=== PATIENT | male | born 1940 | race Caucasian/White ===

== ENCOUNTER 2020-11-06 09:09 | Inpatient (IN) ==
[2020-11-06] MEDS ORDERED: ALTEPLASE 0 ML IV ONE (09:20)
--- NOTE | 2020-11-06 09:28 | Emergency Department Note ---
Neuro HPI General Chief Complaint: Stroke Symptoms Stated Complaint: slurred speech, left sided weakness Time Seen by Provider: 11/06/20 09:11 Source: patient and EMS Mode of arrival: EMS Limitations: no limitations History of Present Illness HPI Narrative: 80-year-old male presents via EMS as a stroke alert. Patient was last known well at around 8 AM. Reportedly had slurred speech and left-sided weakness. Patient has history of diabetes also states he has history of TIA and what sounds like traumatic brain injury requiring craniotomy in June 2021. Review of records also report history of brain neoplasm. Patient denies headache denies chest pain denies shortness with. Has history of diabetes and hypertension. Patient's is arrived at the bedside and states the patient had a craniotomy for what was suspected his brain neoplasm but ended up being hemorrhage leading to a stroke and this was in June 2021. Patient is also report to that the patient has had some residual left sided lack of coordination since the brain surgery. He has had some physical and occupational therapy which has improved. She was concerned this morning called EMS because the patient was unsteady when he walked into the kitchen. Related Data Home Medications Medication Instructions Recorded Confirmed aspirin 81 mg tablet,delayed 81 mg PO QDAY 02/13/18 11/06/20 release omega-3 fatty acids 1,000 mg 1,000 mg PO QDAY 02/13/18 11/06/20 capsule insulin U-500 syringe-needle /2 #100 each 10/05/19 11/06/20 mL 31 gauge x 15/64" tamsulosin 0.4 mg capsule 0.4 mg PO QDAY 10/05/19 11/06/20 amlodipine 5 mg PO BID 11/06/20 11/06/20 furosemide 40 mg PO QDAY PRN 11/06/20 11/06/20 Previous Rx's Medication Instructions Recorded insulin syr/ndl U100 half jose 0.5 #100 each 07/28/19 mL 31 gauge x 5/16" pen needle, diabetic 33 gauge x #100 each 06/06/20 5/32" insulin NPH-regular 70-30 U-100 See Rx Instructions .ROUTE 07/19/20 insulin 100 unit/mL subcutaneous .COMPLEX 30 Days #3 ml pen losartan 100 1 tab PO QDAY #90 tab 08/15/20 mg-hydrochlorothiazide 25 mg tablet metoprolol succinate 25 mg 25 mg PO .Q HS #90 tab 08/17/20 tablet,extended release 24 hr blood-glucose meter #1 ea 10/02/20 blood sugar diagnostic #100 ea 10/04/20 blood sugar diagnostic #100 ea 10/27/20 insulin aspart U-100 100 unit/mL See Rx Instructions SUB-Q .COMPLEX 11/01/20 (3 mL) subcutaneous pen #15 ml MDD 80 Allergies Allergy/AdvReac Type Severity Reaction Status Date / Time nabumetone [From RELAFEN] Allergy Unknown BLISTERS Verified 10/04/20 09:02 Review of Systems ROS ROS Narrative: Narrative: All systems ED: reviewed and negative except as stated. Constitutional: Denies fever, chills and sweats Eyes: Denies vision change Cardiovascular: Denies chest pain Respiratory: Denies shortness of breath and cough Gastrointestinal: Denies abdominal pain, vomiting and diarrhea Genitourinary: Denies dysuria, frequency, urgency and hematuria Musculoskeletal: Denies back pain and joint pain Integumentary: Denies rash Neurological: Reports headache, weakness, abnormal gait, dizziness and other (Slurred speech) Psychiatric: Denies anxiety, suicidal thoughts and homicidal thoughts Endocrine: Denies polydipsia and polyuria Hematological/Lymphatic: Denies easy bleeding and easy bruising PFSH Narrative Patient History Narrative: Narrative: Medical/Surgical/Family History All Active Problems (Updated 11/06/20 @ 11:41 by Juarez Tolentino MD) Dysarthria (Acute) Ataxia (Acute) Uncontrolled diabetes mellitus (Acute) 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) Encounter for long-term (current) use of insulin (Chronic) Hypertension (Acute) Mary Kate infection of genital region (Acute) Brain neoplasm (Acute) Concussion (Acute) Fall (Acute) Injury of shoulder, right (Acute) Finger sprain (Acute) Fever (Acute) Edema due to congestive heart failure (Acute) Ulcer of left lower leg (Acute) Ulcer of right leg (Acute) Blister (Acute) Medicare annual wellness visit, subsequent (Acute) H/O sigmoidoscopy (Chronic ~1995) Diabetic eye exam (Chronic 02/03/19) Nuclear sclerotic cataract (Chronic) Cortical cataract (Chronic) Heart murmur (Chronic) GERD (gastroesophageal reflux disease) (Chronic) Generalized headaches (Chronic) Preventative health care (Chronic) Fatigue (Chronic) Plantar fasciitis of left foot (Chronic) Prostatic hypertrophy (Chronic) Abrasion, left lower leg, sequela (Chronic) Strain of muscle(s) and tendon(s) of the rotator cuff of right shoulder, initial encounter (Chronic) Arthritis (Chronic) Hearing loss (Chronic) Other fatigue (Chronic) Enlarged prostate with lower urinary tract symptoms (LUTS) (Chronic) Hypertension (Chronic) Hyperlipidemia (Chronic) Dry eye syndrome (Chronic) Callus of foot (Chronic) Medical History (Updated 11/06/20 @ 11:41 by Juarez Tolentino MD) Abrasion, left lower leg, sequela Arthritis Callus of foot Cortical cataract Diabetic eye exam (02/03/19) Vision source- no retinopathy Dry eye syndrome Encounter for long-term (current) use of insulin Enlarged prostate with lower urinary tract symptoms (LUTS) Fatigue Generalized headaches GERD (gastroesophageal reflux disease) H/O sigmoidoscopy (~1995) Hearing loss Hearing loss of both ears Heart murmur Hyperlipidemia Hypertension Nuclear sclerotic cataract Other fatigue Plantar fasciitis of left foot Preventative health care Prostatic hypertrophy with obstruction Strain of muscle(s) and tendon(s) of the rotator cuff of right shoulder, initial encounter Type 2 diabetes mellitus with autonomic neuropathy Surgical History History of hernia repair (~1995) Right- Dr Randle in [place] History of left cataract extraction (04/24/17) History of total left knee replacement (~2010) Dr Yung History of total right knee replacement (~2006) Dr Yung Hx of right cataract extraction (04/15/17) Hx of right inguinal hernia repair (~1995) Family History Mother , 85 d/t stroke Thyroid disease Stroke Arthritis Father , 79 Reason not listed Alcoholism Pacemaker Social History Smoking Status: Never smoker Alcohol Intake Frequency: does not drink Substance Use: does not use Exam Narrative Narrative: Constitutional: Awake alert no acute distress well-nourished well- developed HEENT: Normocephalic, atraumatic PERRLA, EOMI, oral mucosa moist, pharynx clear, Neck: Supple, no lymphadenopathy, no JVD Lungs: Breathing unlabored, lungs clear Cardiac: Regular rate and rhythm, normal distal pulses, GI: Soft nontender nondistended no guarding no rebound Musculoskeletal: No tenderness, no deformities, no edema, full range of motion Neuro: Awake alert, cranial nerves II through XII grossly intact, mildly slurred speech, oriented to self month and age. Moves all extremities no obvious focal motor or sensory deficit. Psychiatric: Normal mood and affect Skin: Warm dry no rash, cap refill less than 2 seconds NIH stroke scale: 1 Patient is alert, keenly responsive 0 He knows both his age and the month 0 He will blink his eyes and squeezes hand 0 Normal extraocular movements 0 Visual martins grossly intact no obvious visual field deficits 0 no facial palsy no 0 left arm drift no right arm drift 0 No left leg drift no right leg drift 0 No limb ataxia 0 No sensory loss no aphasia 0 Mild dysarthria +1 no inattention or extension deficit 0 General Limitations: no limitations Course Consultations Consultation #1: Patient discussed with teleneurologist, Dr. Ga, who feels that given the patient's recent traumatic brain hemorrhage and craniotomy in June 2021, he is not a candidate for thrombolytics. He did recommend patient get an MRI and be admitted for evaluation. Time: 09:37 Consultation #2: Discussed with hospitalist, Dr. Hawley who agrees to see the patient and admit the patient. Time: 12:10 Vital Signs Vital signs: Vital Signs Temperature 97.3 F 11/06/20 09:11 Pulse Rate 80 11/06/20 09:11 Respiratory Rate 16 11/06/20 09:11 Blood Pressure 192/94 11/06/20 09:11 Pulse Oximetry (%) 99 11/06/20 09:11 Temperature 97.3 F 11/06/20 09:11 Pulse Rate 65 11/06/20 10:54 Respiratory Rate 19 11/06/20 09:31 Blood Pressure 167/120 11/06/20 11:47 Pulse Oximetry (%) 91 11/06/20 10:54 [facility] Narrative Medical decision making narrative: 40-year-old male last known well about an hour prior to arrival here developed some slurred speech and ataxia. Patient's history notable for a craniotomy in June 2021 for what they thought might have been a tumor but ended up being a hemorrhagic stroke. Patient also states he had had a head injury few weeks prior to that in May. Patient had slurred speech and some unsteady gait this morning. CT scan of the brain showed no definite acute process. Case discussed with teleneurologist Dr. Ga who stated the patient is not a candidate for TPA given his low NIH score as well as recent craniotomy for intracerebral hemorrhage. He did recommend patient be admitted and have MRI of the brain. Patient has had some chronic left-sided poor coordination since his craniotomy in June. He has had some physical and occupational therapy with improvement. Labs notable for glucose of 314 the patient does state that his sugars tend to be poorly controlled in the 300s at home. Lab Data Result diagrams: 11/06/20 09:22 11/06/20 09:22 Labs: Lab Results 11/06/20 11/06/20 11/06/20 Range/Units 09:22 09:22 09:22 WBC 8.0 (4.5-11.0) K/mcL RBC 4.72 (4.50-5.90) M/mcL Hgb 15.5 (13.5-16.5) g/dL Hct 45.9 (41.0-55.0) % MCV 97.2 (80.0-100.0) fL MCH 32.8 (26.0-34.0) pg MCHC 33.8 (31.0-36.0) g/dL RDW 12.3 (11.5-14.5) % Plt Count 233 (140-440) K/mcL MPV 9.4 (7.4-10.4) fL Neut % (Auto) 36.0 L (38.0-78.0) % Lymph % (Auto) 54.2 H (15.0-49.0) % [place] % (Auto) 7.1 (1.0-12.0) % Eos % (Auto) 2.0 (0.0-7.0) % Baso % (Auto) 0.7 (0.0-2.0) % Lymph # (Auto) 4.36 (1.50-4.80) K/mcL [place] # (Auto) 0.57 (0.10-0.90) K/mcL Eos # (Auto) 0.16 (0.00-0.70) K/mcL Baso # (Auto) 0.06 (0.00-0.20) K/mcL Absolute Neutrophils 2.89 (1.80-8.00) K/mcL POC PT 12.4 (11.9-14.5) sec PT 13.8 (11.9-14.5) sec POC INR 1.0 (0.8-1.2) INR 1.0 (0.9-1.1) APTT 25.6 (20.0-37.0) sec Sodium 134 (133-145) mmol/L Potassium 3.7 (3.3-5.1) mmol/L Chloride 97 (96-108) mmol/L Carbon Dioxide 23 (22-30) mmol/L Anion Gap 14.0 (8.0-16.0) BUN 16 (8-23) mg/dL Creatinine 1.0 (0.7-1.2) mg/dL POC Creatinine 0.9 (0.6-1.2) mg/dL GFR Calculation 71 Glucose 314 H (70-105) mg/dL Calcium 9.0 (8.6-10.4) mg/dL Total Bilirubin 0.7 (0.1-1.0) mg/dL AST 30 (<40) U/L ALT 22 (<40) U/L Alkaline Phosphatase 52 (39-117) U/L Troponin T (<0.03) ng/mL Total Protein 7.0 (5.9-8.4) gm/dL Albumin 3.7 (3.2-5.2) gm/dL Globulin 3.3 (2.2-3.7) gm/dL Albumin/Globulin Ratio 1.1 (1.0-2.3) 11/06/20 Range/Units 09:22 WBC (4.5-11.0) K/mcL RBC (4.50-5.90) M/mcL Hgb (13.5-16.5) g/dL Hct (41.0-55.0) % MCV (80.0-100.0) fL MCH (26.0-34.0) pg MCHC (31.0-36.0) g/dL RDW (11.5-14.5) % Plt Count (140-440) K/mcL MPV (7.4-10.4) fL Neut % (Auto) (38.0-78.0) % Lymph % (Auto) (15.0-49.0) % [place] % (Auto) (1.0-12.0) % Eos % (Auto) (0.0-7.0) % Baso % (Auto) (0.0-2.0) % Lymph # (Auto) (1.50-4.80) K/mcL [place] # (Auto) (0.10-0.90) K/mcL Eos # (Auto) (0.00-0.70) K/mcL Baso # (Auto) (0.00-0.20) K/mcL Absolute Neutrophils (1.80-8.00) K/mcL POC PT (11.9-14.5) sec PT (11.9-14.5) sec POC INR (0.8-1.2) INR (0.9-1.1) APTT (20.0-37.0) sec Sodium (133-145) mmol/L Potassium (3.3-5.1) mmol/L Chloride (96-108) mmol/L Carbon Dioxide (22-30) mmol/L Anion Gap (8.0-16.0) BUN (8-23) mg/dL Creatinine (0.7-1.2) mg/dL POC Creatinine (0.6-1.2) mg/dL GFR Calculation Glucose (70-105) mg/dL Calcium (8.6-10.4) mg/dL Total Bilirubin (0.1-1.0) mg/dL AST (<40) U/L ALT (<40) U/L Alkaline Phosphatase (39-117) U/L Troponin T 0.02 (<0.03) ng/mL Total Protein (5.9-8.4) gm/dL Albumin (3.2-5.2) gm/dL Globulin (2.2-3.7) gm/dL Albumin/Globulin Ratio (1.0-2.3) ED POC Tests ED POC Tests: EDWARD - SARS Antigen Negative EKG Data EKG #1: EKG attestation: Yes I reviewed and interpreted this EKG. and Yes There are no EKG findings of acute coronary syndrome EKG results narrative: EKG performed at 9:57 AM shows junctional rhythm rate of 77 left axis deviation, right bundle branch block left anterior fascicular block nonspecific ST changes Discharge Plan Patient/Caregiver Discharge Instructions Pt seen by RN FACULTY/PA only: No Clinical Impression: Dysarthria, Ataxia, Uncontrolled diabetes mellitus, Hypertension Patient Disposition: Xfer As Inpt ([facility]) Condition: Fair Follow up with: Kelvin Yu MD [Primary Care Provider] - Prescriptions: No Action (DME) pen needle, diabetic [Easy Comfort Pen [place]] 33 gauge x 5/32" needle See Rx Instructions .ROUTE .MEDSUPPLY Qty: 100 RF: 5 (DME) insulin syr/ndl U100 half jose 0.5 mL 31 gauge x 5/16" syringe See Rx Instructions .ROUTE .MEDSUPPLY Qty: 100 RF: 12 losartan-hydrochlorothiazide 100-25 mg tablet 1 tab PO QDAY Qty: 90 RF: 1 metoprolol succinate 25 mg tablet extended release 24 hr 25 mg PO .Q HS Qty: 90 RF: 0 (DME) blood-glucose meter [FreeStyle Lite Meter] Kit See Rx Instructions .ROUTE .MEDSUPPLY Qty: 1 RF: 0 (DME) FreeStyle Lite Strips Strip See Rx Instructions .ROUTE .MEDSUPPLY Qty: 100 RF: 6 Novolog Flexpen U-100 Insulin 100 unit/mL (3 mL) insulin pen See Rx Instructions SUB-Q .COMPLEX MDD 80 Qty: 15 RF: 3 aspirin [Adult Aspirin Regimen] 81 mg tablet,delayed release (DR/EC) 81 mg PO QDAY RF: 0 omega-3 fatty acids [Fish Oil Concentrate] 1,000 mg capsule 1,000 mg PO QDAY RF: 0 tamsulosin [Flomax] 0.4 mg capsule 0.4 mg PO QDAY RF: 0 (DME) BD Insulin Syringe U-500 1/2 mL 31 gauge x 15/64" syringe See Rx Instructions .ROUTE .MEDSUPPLY Qty: 100 RF: 0 (DME) True Metrix Glucose Test Strip Strip See Rx Instructions .ROUTE .MEDSUPPLY Qty: 100 RF: 11 Novolin 70-30 FlexPen U-100 100 unit/mL (70-30) insulin pen See Rx Instructions .ROUTE .COMPLEX 30 Days Qty: 3 RF: 6 furosemide 40 mg tablet 40 mg PO QDAY PRN (Reason: edema) RF: 0 amlodipine 5 mg tablet 5 mg PO BID RF: 0
--- NOTE | 2020-11-06 09:31 | Cat Scan Report ---
CLINICAL INFORMATION: Head CT three months prior 08/08/2020 COMPARISON: CT three months prior 08/08/2020. TECHNIQUE: 2.5 mm helical slices were obtained in the skull base to vertex. Following reconstruction, axial reformatted images were reviewed at bone and parenchymal windows. The exam was performed using radiation dose optimization techniques including, but not limited to, automated exposure control, adjustment of the mA and/or kV according to patient size and use of iterative reconstruction technique. FINDINGS: The ventricles, sulci, fissures, and cisterns are enlarged compatible moderate atrophy. Moderate cortical-based region of encephalomalacia in the right frontoparietal region is unchanged. Minimal chronic ischemic changes in the cerebral white matter expected for age stable. No acute cerebral hemorrhage, mass effect, edema or other acute finding. Overlying right frontoparietal craniotomy defect seen as before. Bone windows show no other osseous abnormality. IMPRESSION: Moderate cortical based region of encephalomalacia in the right frontoparietal junction is unchanged in size since the comparison CT three months prior. This is likely a remote infarct. Mild atrophy and chronic ischemic changes throughout white matter, expected for age, are also stable. No intracerebral hemorrhage, mass effect, edema or other acute finding.. Interpreted and Authenticated by: Cory Garcia 11/06/20
[2020-11-06 09:40] LABS: POC Creatinine 0.9 mg/dL (0.6-1.2)
[2020-11-06 09:41] LABS: POC Pro Time 12.4 sec (11.9-14.5)
[2020-11-06 10:40] LABS: Basophils # (Auto) 0.06 K/mcL (0.00-0.20); Basophils % (Auto) 0.7 % (0.0-2.0); Eosinophils # (Auto) 0.16 K/mcL (0.00-0.70); Hematocrit 45.9 % (41.0-55.0); Hemoglobin 15.5 g/dL (13.5-16.5); Lymphocytes # (Auto) 4.36 K/mcL (1.50-4.80); Lymphocytes % (Auto) 54.2 % (15.0-49.0); Mean Cell Volume 97.2 fL (80.0-100.0); Mean Corpuscular HGB Conc 33.8 g/dL (31.0-36.0); Mean Platelet Volume 9.4 fL (7.4-10.4); Monocytes # (Auto) 0.57 K/mcL (0.10-0.90); Monocytes % (Auto) 7.1 % (1.0-12.0); Platelet Count 233 K/mcL (140-440); RBC 4.72 M/mcL (4.50-5.90); Red Cell Distribution Width 12.3 % (11.5-14.5)
[2020-11-06] MEDS ORDERED: ONDANSETRON 4 MG/2 ML VIAL IV ONE (10:42)
[2020-11-06] MEDS ORDERED: LABETALOL 5 MG/ML ML IV ONE (10:42)
[2020-11-06 11:09] LABS: ALT/SGPT 22 U/L (<40); AST/SGOT 30 U/L (<40); Albumin 3.7 gm/dL (3.2-5.2); Albumin/Globulin Ratio 1.1 (1.0-2.3); Alkaline Phosphatase 52 U/L (39-117); Bilirubin,Total 0.7 mg/dL (0.1-1.0); Blood Urea Nitrogen 16 mg/dL (8-23); Carbon Dioxide 23 mmol/L (22-30); Chloride 97 mmol/L (96-108); Globulin 3.3 gm/dL (2.2-3.7); Glomerular Filtration Rate 71; Glucose 314 mg/dL (70-105)
[2020-11-06 11:17] LABS: Partial Thromboplastin Time 25.6 sec (20.0-37.0); Prothrombin Time 13.8 sec (11.9-14.5)
[2020-11-06] MEDS ORDERED: 0.9 % SODIUM CHLORIDE 1,000 ML IV ONE (12:42)
[2020-11-06] MEDS ORDERED: 0.9 % SODIUM CHLORIDE 500 ML IV ONE (12:42)
--- NOTE | 2020-11-06 12:44 | Internal Med History&Physical ---
HPI History of Present Illness Patient information: Note initiated : 11/06/20 at 12:28 pm Service Date, if different from initiated Date: [] Patient: Robert Caballero a 80 y/o M admitted on for Slurred Speech, Left Sided Weakness. Chief Complaint: [] History of present illness: Mr. Caballero is a 80 year old M Presents the ED with slurring of speech ataxia and some left-sided weakness. Last seen normal 8 this morning. Patient's history is significant for a stroke in June where he was treated at [facility] it had a atypical appearance and was concern for mass and underwent craniotomy with tissue biopsy confirming that was ischemic stroke there was no hemorrhagic stroke mentioned in any documentation. Patient is on aspirin and states has been taking it daily, 81 mg. I do not see a statin medication on board. Case was discussed with stroke neurologist in the ED who recommended admission and MRI and that patient was not a TPA candidate. Per the history of the patient he states he was walking in the kitchen and was started open the refrigerator door but is becoming increasingly weak. His helped him to the chair he started having slurring of speech. Denies any headache fever chills chest pain shortness of breath. Vision intact per patient. Review of Systems: Pertinent positives as above. Denies headache/fever/chills/nausea/vomiting/chest or abdominal pain/cough/dyspnea/diarrhea. 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) Encounter for long-term (current) use of insulin (Chronic) Hypertension (Acute) Mary Kate infection of genital region (Acute) Brain neoplasm (Acute) Concussion (Acute) Fall (Acute) Injury of shoulder, right (Acute) Finger sprain (Acute) Fever (Acute) Edema due to congestive heart failure (Acute) Ulcer of left lower leg (Acute) Ulcer of right leg (Acute) Blister (Acute) Medicare annual wellness visit, subsequent (Acute) H/O sigmoidoscopy (Chronic ~1995) Diabetic eye exam (Chronic 02/03/19) Nuclear sclerotic cataract (Chronic) Cortical cataract (Chronic) Heart murmur (Chronic) GERD (gastroesophageal reflux disease) (Chronic) Generalized headaches (Chronic) Preventative health care (Chronic) Fatigue (Chronic) Plantar fasciitis of left foot (Chronic) Prostatic hypertrophy (Chronic) Abrasion, left lower leg, sequela (Chronic) Strain of muscle(s) and tendon(s) of the rotator cuff of right shoulder, initial encounter (Chronic) Arthritis (Chronic) Hearing loss (Chronic) Other fatigue (Chronic) Enlarged prostate with lower urinary tract symptoms (LUTS) (Chronic) Hypertension (Chronic) Hyperlipidemia (Chronic) Dry eye syndrome (Chronic) Callus of foot (Chronic) Medical History (Updated 11/06/20 @ 11:41 by Juarez Tolentino MD) Abrasion, left lower leg, sequela Arthritis Callus of foot Cortical cataract Diabetic eye exam (02/03/19) Vision source- no retinopathy Dry eye syndrome Encounter for long-term (current) use of insulin Enlarged prostate with lower urinary tract symptoms (LUTS) Fatigue Generalized headaches GERD (gastroesophageal reflux disease) H/O sigmoidoscopy (~1995) Hearing loss Hearing loss of both ears Heart murmur Hyperlipidemia Hypertension Nuclear sclerotic cataract Other fatigue Plantar fasciitis of left foot Preventative health care Prostatic hypertrophy with obstruction Strain of muscle(s) and tendon(s) of the rotator cuff of right shoulder, initial encounter Type 2 diabetes mellitus with autonomic neuropathy Surgical History History of hernia repair (~1995) Right- Dr Randle in [place] History of left cataract extraction (04/24/17) History of total left knee replacement (~2010) Dr Yung History of total right knee replacement (~2006) Dr Yung Hx of right cataract extraction (04/15/17) Hx of right inguinal hernia repair (~1995) Family History Mother , 85 d/t stroke Thyroid disease Stroke Arthritis Father , 79 Reason not listed Alcoholism Pacemaker Social History occupational status: retired occupation: [employer] physical activity: none alcohol intake frequency: does not drink substance use type: does not use seatbelt use: sometimes MEDS/ALLERGIES Home Medications and Allergies Home Medications Medication Instructions Recorded Confirmed Type aspirin 81 mg tablet,delayed 81 mg PO QDAY 02/13/18 11/06/20 History release omega-3 fatty acids 1,000 mg 1,000 mg PO QDAY 02/13/18 11/06/20 History capsule insulin syr/ndl U100 half jose 0.5 #100 each 07/28/19 11/06/20 Rx mL 31 gauge x 5/16" insulin U-500 syringe-needle 1/2 #100 each 10/05/19 11/06/20 History mL 31 gauge x 15/64" tamsulosin 0.4 mg capsule 0.4 mg PO QDAY 10/05/19 11/06/20 History pen needle, diabetic 33 gauge x #100 each 06/06/20 11/06/20 Rx 5/32" insulin NPH-regular 70-30 U-100 See Rx Instructions .ROUTE 07/19/20 11/06/20 Rx insulin 100 unit/mL subcutaneous .COMPLEX 30 Days #3 ml pen losartan 100 1 tab PO QDAY #90 tab 08/15/20 11/06/20 Rx mg-hydrochlorothiazide 25 mg tablet metoprolol succinate 25 mg 25 mg PO .Q HS #90 tab 08/17/20 11/06/20 Rx tablet,extended release 24 hr blood-glucose meter #1 ea 10/02/20 11/06/20 Rx blood sugar diagnostic #100 ea 10/04/20 11/06/20 Rx blood sugar diagnostic #100 ea 10/27/20 11/06/20 Rx insulin aspart U-100 100 unit/mL See Rx Instructions SUB-Q .COMPLEX 11/01/20 11/06/20 Rx (3 mL) subcutaneous pen #15 ml MDD 80 amlodipine 5 mg PO BID 11/06/20 11/06/20 History furosemide 40 mg PO QDAY PRN 11/06/20 11/06/20 History Allergies Allergy/AdvReac Type Severity Reaction Status Date / Time nabumetone [From RELAFEN] Allergy Unknown BLISTERS Verified 10/04/20 09:02 EXAM Constitutional Vitals: Temp Pulse Resp BP Pulse Ox 97.3 F 65 19 167/120 91 11/06/20 09:11 11/06/20 10:54 11/06/20 09:31 11/06/20 11:47 11/06/20 10:54 Exam: General: Alert, Awake, No acute Distress, obese Eyes/N/T: EOMI, PERRL, Head/Neck: neck supple, normocephalic atraumatic CV: RRR, No murmurs, normal s1/s2 Pulm: Clear b/l, no wheezing/rhonchi/rales Abd: soft, nontender, +BS x4 Ext: no clubbing/cyanosis/edema Neuro: Alert, chronic left upper extremity weakness although near symmetrical left side lower extremity strength appears symmetrical, sensations intact, no pronator drift, dysarthria present, face symmetrical other than his left eyelid appears to be drooping some but is able to open. skin: warm/dry DATA Data Completed and Pending Labs: Labs from last 24 hours 11/06/20 11/06/20 11/06/20 09:22 09:22 09:22 WBC RBC Hgb Hct MCV MCH MCHC RDW Plt Count MPV Neut % (Auto) Lymph % (Auto) [place] % (Auto) Eos % (Auto) Baso % (Auto) Lymph # (Auto) [place] # (Auto) Eos # (Auto) Baso # (Auto) Absolute Neutrophils POC PT 12.4 PT 13.8 POC INR 1.0 INR 1.0 APTT 25.6 Sodium 134 Potassium 3.7 Chloride 97 Carbon Dioxide 23 Anion Gap 14.0 BUN 16 Creatinine 1.0 POC Creatinine 0.9 GFR Calculation 71 Glucose 314 H Calcium 9.0 Total Bilirubin 0.7 AST 30 ALT 22 Alkaline Phosphatase 52 Troponin T 0.02 Total Protein 7.0 Albumin 3.7 Globulin 3.3 Albumin/Globulin Ratio 1.1 11/06/20 09:22 WBC 8.0 RBC 4.72 Hgb 15.5 Hct 45.9 MCV 97.2 MCH 32.8 MCHC 33.8 RDW 12.3 Plt Count 233 MPV 9.4 Neut % (Auto) 36.0 L Lymph % (Auto) 54.2 H [place] % (Auto) 7.1 Eos % (Auto) 2.0 Baso % (Auto) 0.7 Lymph # (Auto) 4.36 [place] # (Auto) 0.57 Eos # (Auto) 0.16 Baso # (Auto) 0.06 Absolute Neutrophils 2.89 POC PT PT POC INR INR APTT Sodium Potassium Chloride Carbon Dioxide Anion Gap BUN Creatinine POC Creatinine GFR Calculation Glucose Calcium Total Bilirubin AST ALT Alkaline Phosphatase Troponin T Total Protein Albumin Globulin Albumin/Globulin Ratio A/P Narrative A/P Narrative: A: *CVA(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): -Case discussed with stroke neurologist, note TPA candidate -pt has been on ASA, do not seen statin on home med list -ABCD=6-7 *HTN: *Hypothyroidism: *Obesity: *DM: P: -DAPT for 21 days then likely monotherapy on Plavix as seemed to fail ASA -high dose statin -MRI pending -neurochecks -allow permissive hypertension first 24-48hrs then reintroduce home BP meds gradually -echo pending -ST/PT/OT -SSI -tight glycemic control 140-180 -CM for placement needs -ppx: lovenox/ppi DNR Time Spent With Patient Time: Total time spent is greater than 50% in coordination of care (as documented) at patient's floor/unit and/or counseling patient: QUALITY Stroke Symptom Onset Unknown: No
[2020-11-06] MEDS ORDERED: CLOPIDOGREL 300 MG TABLET PO ONE (12:45)
[2020-11-06] MEDS ORDERED: ASPIRIN 325 MG ENTERIC COATED TABLET PO ONE (13:14)
[2020-11-06] MEDS ORDERED: ASPIRIN 81 MG TAB.CHEW CHEWED ONE (13:24)
[2020-11-06] MEDS ORDERED: ASPIRIN 300 MG RECTAL SUPPOSITORY PR ONE (13:26)
[2020-11-06] MEDS ORDERED: HALOPERIDOL LACTATE 5 MG/ML VIAL IV ONE ×2 (14:13→19:10)
--- NOTE | 2020-11-06 15:30 | Magnetic Resonance Report ---
CLINICAL INFORMATION: stroke COMPARISON: Head CT 11/06/2020 TECHNIQUE: Sagittal T1, axial diffusion ADC T2 FLAIR images were acquired FINDINGS: The ventricles, sulci, fissures and cisterns are symmetrically enlarged patible with moderate age-related atrophy. A large remote cortical-based infarct in the right frontal parietal junction appreciated. Moderate restricted diffusion involving both right and left superior cerebellar vermis appreciated. Findings suggestive of a moderate-sized nonhemorrhagic infarct in this region. IMPRESSION: 1. Moderate-sized nonhemorrhagic acute infarct of the superior cerebellar vermis. 2. Large remote cortical-based infarct the right frontoparietal junction in the right MCA territory Interpreted and Authenticated by: Cory Garcia 11/06/20
[2020-11-06] MEDS ORDERED: [UNRECOGNIZED DRUG - OTHER] SCH (15:33)
[2020-11-06] MEDS ORDERED: POTASSIUM CHLORIDE 20 MEQ TABLET PO PRN ×2 (15:33)
[2020-11-06] MEDS ORDERED: IPRATROPIUM/ALBUTEROL 3 ML AMPUL.NEB NEB PRN (15:33)
[2020-11-06] MEDS ORDERED: MAGNESIUM SULFATE 2 GM/50 ML BAG IV PRN (15:33)
[2020-11-06] MEDS ORDERED: INSULIN NPH AND REGULAR HUMAN SCH (15:33)
[2020-11-06] MEDS ORDERED: 0.9 % SODIUM CHLORIDE 1,000 ML IV SCH (15:33)
[2020-11-06] MEDS ORDERED: DEXTROSE 50% 50 ML VIAL IV PRN (15:33)
[2020-11-06] MEDS ORDERED: POTASSIUM CHLORIDE 40 MEQ in DEXTROSE 5% IN WATER 500 ML IV PRN (15:33)
[2020-11-06] MEDS ORDERED: DEXTROSE 31 GM ORAL.SUSP PO PRN (15:33)
[2020-11-06] MEDS ORDERED: ONDANSETRON 4 MG/2 ML VIAL IV PRN (15:33)
[2020-11-06] MEDS ORDERED: hydrALAZINE 20 MG/ML VIAL IV PRN (15:33)
[2020-11-06] MEDS ORDERED: SENNOSIDES 1 TABLET PO PRN (15:33)
[2020-11-06 16:28] LABS: HDL Cholesterol 49 mg/dL (>40); LDL Cholesterol,Calculated 95 mg/dL (<100); Non-HDL Cholesterol 126 mg/dL (<130); Triglycerides 158 mg/dL (<150)
[2020-11-06] MEDS: 0.9 % SODIUM CHLORIDE 10 ML SYRINGE IV SCH ×2 (17:24→22:30)
[2020-11-06] MEDS: INSULIN LISPRO 1 UNIT/0.01 ML UNIT SQ SCH ×3 (18:03→23:58)
[2020-11-06] MEDS ORDERED: IOPAMIDOL 100 ML BOTTLE IV ONE (20:56)
[2020-11-06] MEDS: DOCUSATE SODIUM 100 MG CAPSULE PO SCH (21:24)
[2020-11-06] MEDS: ATORVASTATIN 40 MG TABLET PO SCH (21:41)
[2020-11-06] MEDS: INSULIN, 75/25 NPL/LISPRO 1 UNIT/0.01 ML UNIT SQ SCH (21:43)
[2020-11-06 23:59] LABS: Appearance,Urine CLEAR (Clear); Bacteria,Urine 0 /hpf (0); Bilirubin,Urine Negative (Negative); Color,Urine YELLOW; Culture Indicated,Urine No; Glucose,Urine (UA) >=500 mg/dL (Negative); Ketones,Urine Negative (Negative); Leukocyte Esterase,Urine Negative /ug (Negative); Nitrate,Urine Negative (Negative); Protein,Urine >=500 mg/dL (Negative); Specific Gravity,Urine 1.027 (1.000-1.035); Urine Blood Negative (Negative); Urine RBC 0 /hpf (0-3); Urine Squamous Epithelial Cell 0 /hpf (0-4); Urine WBC < 1 /hpf (0-4); Urobilinogen,Urine Negative
--- NOTE | 2020-11-07 03:14 | Cat Scan Report ---
CLINICAL INFORMATION: Acute infarct superior cerebellar vermis COMPARISON: None. TECHNIQUE: 80 cc of Isovue-370 were injected intravenously, and using SmartPrep to maximize arterial opacification, 0.625 mm helical slices were obtained from the thoracic aortic arch through the [place] of [place]. Following reconstruction, 2.5mm sagittal, coronal and axial reformatted images were processed and reviewed at standard and bone algorithm/window. 3-D volume rendered, CPR and MIP images were processed using a [employer] work station.The exam was performed using radiation dose optimization techniques including, but not limited to, automated exposure control, adjustment of the mA and/or kV according to patient size and use of iterative reconstruction technique. FINDINGS: The thoracic arch is normal in diameter and aortic branching is conventional. The brachiocephalic, both common, internal and external carotid and both vertebral arteries are widely patent. This minimal atherosclerotic plaque in the carotid bifurcations. There are no soft tissue abnormalities throughout the neck. Lung apices through chronic bronchitis changes with scattered fibrosis, but no definite L3. Degenerative intervertebral foramen stenosis the cervical spine due to broad disc protrusions and degenerative facet disease: Moderate bilateral C3-4, severe bilateral C4-5 and severe left C5-6 IMPRESSION: Thoracic aortic arch brachiocephalic both subclavian vertebral and carotid arteries are widely patent. Minimal atherosclerotic plaque in the carotid bifurcation Degenerative vertebral foraminal stenosis in the cervical spine Interpreted and Authenticated by: Cory Garcia 11/07/20
--- NOTE | 2020-11-07 03:20 | Cat Scan Report ---
CLINICAL INFORMATION: Acute superior cerebellar vermis infarct COMPARISON: None. TECHNIQUE: 80 cc of Isovue-370 were injected intravenously , and using SmartPrep to maximize cerebral arterial opacification, 0.625 mm helical slices were obtained from the skull base through the cerebral vertex. Following reconstruction , sagittal, coronal and axial reformatted images were processed and reviewed at multiple windows and levels. 3D volume rendered and MIP images were acquired at a independent workstation. The exam was performed using radiation dose optimization techniques including, but not limited to, automated exposure control, adjustment of the mA and/or kV according to patient size and use of iterative reconstruction technique. FINDINGS: The intracranial internal carotid vertebral and basilar arteries are widely patent. Scattered mild stenoses seen throughout the anterior and middle cerebral arteries distal to A2 and M2 segment. Posterior parietal branches of the right little cerebral artery, in the region of old infarct ,are attenuated expected. The P1 and P2 segments of the posterior arteries are diminutive with multiple stenoses which appear to range up to 90%. The superior cerebellar branches off the basilar artery, which supply the infarct, are not visualized possibly related to artifact or thrombosis. IMPRESSION: 1. The superior cerebellar arteries which would supply the superior cerebellar vermis, in the region of known acute infarct, are not well visualized on this study. This may be due to thrombotic occlusion or artifact related to decreased perfusion pressures. If the patient requires transcatheter treatment, suggest referral to interventional radiology for standard conventional cerebral angiogram. 2. Multiple stenoses within the P1 and P2 posterior cerebral arteries ranging up to 90%. 3. Attenuation of the posterior parietal branches in the region of the right frontal parietal junction infarct-as expected Interpreted and Authenticated by: Cory Garcia 11/07/20
[2020-11-07] MEDS: INSULIN LISPRO 1 UNIT/0.01 ML UNIT SQ SCH ×6 (03:43→23:27)
[2020-11-07] MEDS: 0.9 % SODIUM CHLORIDE 10 ML SYRINGE IV SCH ×3 (06:02→21:22)
[2020-11-07] MEDS: PANTOPRAZOLE 40 MG VIAL IV SCH (07:27)
--- NOTE | 2020-11-07 07:40 | Internal Med Progress Note ---
SUBJECTIVE Subjective Patient information: Note initiated : 11/07/20 at 7:32 am Service Date, if different from initiated Date: [] Patient: Robert Caballero a 80 y/o M admitted on 11/06/20 for Slurred Speech, Left Sided Weakness. Chief Complaint: [] Interval history: History of present illness: Mr. Caballero is a 80 year old M Presents the ED with slurring of speech ataxia and some left-sided weakness. Last seen normal 8 this morning. Patient's history is significant for a stroke in June where he was treated at [facility] it had a atypical appearance and was concern for mass and underwent craniotomy with tissue biopsy confirming that was ischemic stroke there was no hemorrhagic stroke mentioned in any documentation. Patient is on aspirin and states has been taking it daily, 81 mg. I do not see a statin medication on board. Case was discussed with stroke neurologist in the ED who recommended admission and MRI and that patient was not a TPA candidate. Per the history of the patient he states he was walking in the kitchen and was started open the refrigerator door but is becoming increasingly weak. His helped him to the chair he started having slurring of speech. Denies any headache fever chills chest pain shortness of breath. Vision intact per patient. Reviewing charts from [facility] admission in June for stroke. 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 Case was discussed with interventional radiology at the time and felt no intervention was needed at that time - likely given the location of the stroke on that presentation. MRI today reveals acute stroke to superior cerebellar vermis. I discussed the case with Dr. Vergara who recommended DAPT (which had already been started), no immediate need for intervention, and to f/u with him outpt for further evaluation of the vertebral artery with potential intervention at that time. 11/07 Patient with slurred speech. Seen by speech therapy and placed on pured diet. 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 Discussed the case again with Dr. Vergara. MRI revealing cerebellar stroke Review of Systems: denies headache/fever/chills/nausea/vomiting/chest or abdominal pain/cough/dyspnea/diarrhea. Otherwise see above. Constitutional Vitals: Vital Signs Temp Pulse Resp BP Pulse Ox 98.8 F 55 L 17 183/149 95 11/07/20 04:05 11/06/20 15:25 11/07/20 04:11 11/07/20 04:05 11/07/20 04:11 Period Temp Pulse Resp BP Sys/[place] Pulse Ox Last 24 Hr 97.3 F-99.6 F 50-85 12- 142-206/61-149 91-100 Intake and Output 11/06/20 11/07/20 11/07/20 21:59 05:59 13:59 Intake Total 1000 Output Total 700 76 100 Balance -700 -76 900 Weight 116.483 kg Intake & Output: Intake & Output 11/06/20 11/07/20 11/07/20 21:59 05:59 13:59 Intake Total 1000 Output Total 700 76 100 Balance -700 -76 900 Weight 116.483 kg Intake: IV 1000 Sodium Chloride 0.9% 1,000 ml @ 1000 75 mls/hr IV .[id number] [facility] Rx#: [id number] Output: Void Amount 700 75 100 # of times incontinent of urine 1 Other: Urine Appearance Clear Clear Straight Clear Urine Color Light Kassandra Light Kassandra Bright Yellow Straight Light Kassandra Exam: General: Awake, obese Eyes/N/T: Head/Neck: neck supple, CV: RRR, No murmurs, Pulm: Clear b/l, no wheezing/rhonchi/rales Abd: soft, nontender, +BS x4 Ext: no clubbing/cyanosis/edema Neuro: chronic left upper extremity weakness mild although near symmetrical left side lower extremity strength appears symmetrical, dysarthria present. follows commands. skin: warm/dry OBJ DATA Labs CBC & Chem 7: 11/06/20 09:22 11/07/20 05:00 Labs: Abnormal Lab Results 11/06/20 11/06/20 11/06/20 22:28 09:22 09:22 Neut % (Auto) Lymph % (Auto) Glucose 314 H Triglycerides 158 H Urine Protein >=500 A Urine Glucose (UA) >=500 A 11/06/20 09:22 Neut % (Auto) 36.0 L Lymph % (Auto) 54.2 H Glucose Triglycerides Urine Protein Urine Glucose (UA) Meds: Medications Acetaminophen (Acetaminophen 325 Mg Tablet) 650 mg PO Q6HP PRN PRN Reason: PAIN/FEVER > 101 Albuterol/Ipratropium (Ipratropium/Albuterol 3 Ml Ampul.Neb) 3 ml NEB Q4HP PRN PRN Reason: Shortness Of Breath Aspirin (Aspirin 81 Mg Tab.Chew) 81 mg PO DAILY [facility] Atorvastatin Calcium (Atorvastatin 40 Mg Tablet) 80 mg PO HS [facility] Last Admin: 11/06/20 21:41 Dose: Not Given Documented by: Clopidogrel Bisulfate (Clopidogrel 75 Mg Tablet) 75 mg PO DAILY [facility] Dextrose (Dextrose 50% 50 Ml Vial) 0 ml IV UD PRN PRN Reason: Hypoglycemia Diagnostic Test (Pha) (Accu-Chek 1 Each Strip) 1 each FS Q4H [facility] Last Admin: 11/07/20 03:43 Dose: 1 each Documented by: Docusate Sodium (Docusate Sodium 100 Mg Capsule) 100 mg PO BID [facility] Last Admin: 11/06/20 21:24 Dose: Not Given Documented by: Enoxaparin Sodium (Enoxaparin 40 Mg/0.4 Ml Syringe) 40 mg SQ DAILY [facility] Glucose (Dextrose 31 Gm Oral.Susp) 15 gm PO PRN PRN PRN Reason: Hypoglycemia Hydralazine HCl (Hydralazine 20 Mg/Ml Vial) 0 mg IV Q2HP PRN PRN Reason: Hypertension Potassium Chloride 40 meq/ (Dextrose) 520 mls @ 130 mls/hr IV UD PRN PRN Reason: Potassium < 3 Magnesium Sulfate (Magnesium Sulfate) 2 gm in 50 mls @ 50 mls/hr IV UD PRN PRN Reason: Magnesium </= 1.6 Insulin Human Lispro (Insulin Lispro 1 Unit/0.01 Ml Unit) 0 unit SQ Q4H [facility]; Protocol Last Admin: 11/07/20 03:43 Dose: Not Given Documented by: Insulin Lispro Protam/Lispro Human (Insulin, 75/25 Npl/Lispro 1 Unit/0.01 Ml Unit) 55 unit SQ DAILY [facility] Insulin Lispro Protam/Lispro Human (Insulin, 75/25 Npl/Lispro 1 Unit/0.01 Ml Unit) 70 unit SQ HS [facility] Last Admin: 11/06/20 21:43 Dose: 70 units Documented by: Ondansetron HCl (Ondansetron 4 Mg/2 Ml Vial) 4 mg IV Q4HP PRN PRN Reason: Nausea And Vomiting Pantoprazole Sodium (Pantoprazole 40 Mg Vial) 40 mg IV QAMAC [facility] Last Admin: 11/07/20 07:27 Dose: 40 mg Documented by: Potassium Chloride (Potassium Chloride 20 Meq Tablet) 40 meq PO UD PRN PRN Reason: Potssium is 3-3.5 Potassium Chloride (Potassium Chloride 20 Meq Tablet) 40 meq PO UD PRN PRN Reason: Potassium < 3 Senna (Sennosides 1 Tablet) 2 tab PO DAILYP PRN PRN Reason: Constipation Sodium Chloride (0.9 % Sodium Chloride 10 Ml Syringe) 10 ml IV Q8 [facility] Last Admin: 11/07/20 06:02 Dose: 10 ml Documented by: Tamsulosin HCl (Tamsulosin 0.4 Mg Capsule) 0.8 mg PO HS [facility] A/P Narrative A/P Narrative: A: *CVA Cerebellar vermis (moderate sized): -(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 Vergara -dell pending -IVF, awaiting ST -ST/PT/OT -SSI, insulin -tight glycemic control 140-180 -hold home lasix for now -CM for placement needs -ppx: lovenox/ppi DNR Time Spent With Patient Time: Total time spent is greater than 50% in coordination of care (as documented) at patient's floor/unit and/or counseling patient: QUALITY Stroke Onset of Symptoms Date: 11/06/20 Onset of Symptoms Time: 08:00 Symptom Onset Unknown: Yes VTE Deep Vein Thrombosis/Pulmonary Embolism Present on Admission: No
[2020-11-07] MEDS: DOCUSATE SODIUM 100 MG CAPSULE PO SCH ×2 (08:02→21:22)
[2020-11-07] MEDS: 0.9 % SODIUM CHLORIDE 1,000 ML IV SCH ×3 (08:02→21:10)
[2020-11-07 08:16] LABS: ALT/SGPT 19 U/L (<40); AST/SGOT 27 U/L (<40); Albumin 3.4 gm/dL (3.2-5.2); Albumin/Globulin Ratio 1.1 (1.0-2.3); Alkaline Phosphatase 48 U/L (39-117); Bilirubin,Direct 0.2 mg/dL (<0.3); Bilirubin,Total 0.7 mg/dL (0.1-1.0); Blood Urea Nitrogen 17 mg/dL (8-23); Calcium 8.9 mg/dL (8.6-10.4); Carbon Dioxide 25 mmol/L (22-30); Chloride 105 mmol/L (96-108); Globulin 3.2 gm/dL (2.2-3.7); Glomerular Filtration Rate 81; Glucose 102 mg/dL (70-105); Lactate Dehydrogenase 290 U/L (135-225); Triglycerides 144 mg/dL (<150); Uric Acid 6.1 mg/dL (2.5-8.0)
[2020-11-07] MEDS: ACETAMINOPHEN 325 MG TABLET PO PRN ×2 (08:38→19:02)
[2020-11-07] MEDS: ENOXAPARIN 40 MG/0.4 ML SYRINGE SQ SCH (08:38)
[2020-11-07] MEDS: ASPIRIN 81 MG TAB.CHEW PO SCH (08:39)
[2020-11-07] MEDS: CLOPIDOGREL 75 MG TABLET PO SCH (08:39)
[2020-11-07] MEDS ORDERED: POTASSIUM PHOSPHATE 20 MEQ in DEXTROSE 5% IN WATER 250 ML IV ONE (08:59)
[2020-11-07] MEDS ORDERED: INSULIN, 75/25 NPL/LISPRO 1 UNIT/0.01 ML UNIT SQ SCH (09:00)
[2020-11-07] MEDS ORDERED: ASPIRIN 81 MG TAB.CHEW PO SCH (09:00)
[2020-11-07 20:23] LABS: Basophils # (Auto) 0.04 K/mcL (0.00-0.20); Basophils % (Auto) 0.4 % (0.0-2.0); Eosinophils # (Auto) 0.02 K/mcL (0.00-0.70); Eosinophils % (Auto) 0.2 % (0.0-7.0); Hemoglobin 15.2 g/dL (13.5-16.5); Lymphocytes # (Auto) 1.78 K/mcL (1.50-4.80); Lymphocytes % (Auto) 17.1 % (15.0-49.0); Mean Cell Volume 96.6 fL (80.0-100.0); Mean Corpuscular HGB Conc 33.8 g/dL (31.0-36.0); Monocytes # (Auto) 0.98 K/mcL (0.10-0.90); Monocytes % (Auto) 9.4 % (1.0-12.0); Neutrophils % (Auto) 72.9 % (38.0-78.0); Platelet Count 206 K/mcL (140-440); RBC 4.66 M/mcL (4.50-5.90); WBC 10.4 K/mcL (4.5-11.0)
[2020-11-07] MEDS ORDERED: TAMSULOSIN 0.4 MG CAPSULE PO SCH (21:00)
[2020-11-07] MEDS: ATORVASTATIN 40 MG TABLET PO SCH (21:22)
[2020-11-07] MEDS: INSULIN, 75/25 NPL/LISPRO 1 UNIT/0.01 ML UNIT SQ SCH (21:27)
[2020-11-07] MEDS: POTASSIUM CHLORIDE 20 MEQ in 0.45 % SODIUM CHLORIDE 1,000 ML IV SCH (22:10)
[2020-11-07] MEDS: PIPERACILLIN SODIUM/TAZOBACTAM 3.375 GM in DEXTROSE 5% IN WATER 50 ML IV SCH (22:13)
[2020-11-08 02:17] LABS: Erythrocyte Sedimentation Rate 34 mm/hr (0-15)
--- NOTE | 2020-11-08 03:44 | XRay Report ---
CLINICAL INFORMATION: fever COMPARISON: 05/20/2020 FINDINGS: Moderate cardiomegaly is unchanged. Mediastinum is unremarkable. Upper lobe pulmonary vessels are equivocally distended. No definite edema. Moderate patchy left basilar infiltrate and small effusion have developed. Smaller patchy right basilar infiltrate is also developed IMPRESSION: Moderate patchy left and smaller patchy right basilar infiltrate. Small Left pleural effusion Equivocal CHF. Please correlate with BNP and other clinical parameters supportable or refutive of CHF Interpreted and Authenticated by: Cory Garcia 11/08/20
[2020-11-08] MEDS: INSULIN LISPRO 1 UNIT/0.01 ML UNIT SQ SCH ×5 (03:54→23:32)
[2020-11-08] MEDS: PIPERACILLIN SODIUM/TAZOBACTAM 3.375 GM in DEXTROSE 5% IN WATER 50 ML IV SCH ×4 (05:52→23:26)
[2020-11-08] MEDS: 0.9 % SODIUM CHLORIDE 10 ML SYRINGE IV SCH ×3 (05:53→20:23)
[2020-11-08] MEDS: PANTOPRAZOLE 40 MG VIAL IV SCH (06:42)
[2020-11-08 06:54] LABS: Hematocrit 52.1 % (41.0-55.0); Hemoglobin 17.2 g/dL (13.5-16.5); Mean Cell Volume 98.1 fL (80.0-100.0); Platelet Count 217 K/mcL (140-440); RBC 5.31 M/mcL (4.50-5.90); Red Cell Distribution Width 13.1 % (11.5-14.5); WBC 10.5 K/mcL (4.5-11.0)
[2020-11-08 07:11] LABS: ALT/SGPT 18 U/L (<40); AST/SGOT 39 U/L (<40); Albumin 3.6 gm/dL (3.2-5.2); Albumin/Globulin Ratio 0.9 (1.0-2.3); Alkaline Phosphatase 52 U/L (39-117); Bilirubin,Direct 0.3 mg/dL (<0.3); Bilirubin,Total 1.2 mg/dL (0.1-1.0); Blood Urea Nitrogen 20 mg/dL (8-23); Calcium 9.3 mg/dL (8.6-10.4); Carbon Dioxide 27 mmol/L (22-30); Chloride 108 mmol/L (96-108); Globulin 4.1 gm/dL (2.2-3.7); Glomerular Filtration Rate 57; Glucose 55 mg/dL (70-105); Lactate Dehydrogenase 349 U/L (135-225); Phosphorous 3.2 mg/dL (2.5-4.5); Triglycerides 98 mg/dL (<150); Uric Acid 5.8 mg/dL (2.5-8.0)
--- NOTE | 2020-11-08 07:40 | Internal Med Progress Note ---
SUBJECTIVE Subjective Patient information: Note initiated : 11/08/20 at 7:37 am Service Date, if different from initiated Date: [] Patient: Robert Caballero a 80 y/o M admitted on 11/06/20 for Slurred Speech, Left Sided Weakness. Chief Complaint: [] Interval history: History of present illness: Mr. Caballero is a 80 year old M Presents the ED with slurring of speech ataxia and some left-sided weakness. Last seen normal 8 this morning. Patient's history is significant for a stroke in June where he was treated at [facility] it had a atypical appearance and was concern for mass and underwent craniotomy with tissue biopsy confirming that was ischemic stroke there was no hemorrhagic stroke mentioned in any documentation. Patient is on aspirin and states has been taking it daily, 81 mg. I do not see a statin medication on board. Case was discussed with stroke neurologist in the ED who recommended admission and MRI and that patient was not a TPA candidate. Per the history of the patient he states he was walking in the kitchen and was started open the refrigerator door but is becoming increasingly weak. His helped him to the chair he started having slurring of speech. Denies any headache fever chills chest pain shortness of breath. Vision intact per patient. Reviewing charts from [facility] admission in June for stroke. 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 Case was discussed with interventional radiology at the time and felt no intervention was needed at that time - likely given the location of the stroke on that presentation. MRI today reveals acute stroke to superior cerebellar vermis. I discussed the case with Dr. Vergara who recommended DAPT (which had already been started), no immediate need for intervention, and to f/u with him outpt for further evaluation of the vertebral artery with potential intervention at that time. 11/07 Patient with slurred speech. Seen by speech therapy and placed on pured diet. 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 Discussed the case again with Dr. Vergara. MRI revealing cerebellar stroke Discussed the CTA findings with Dr. Vergara regarding superior cerebellar arteries as well as the cerebral arteries. He reiterated nothing to be done at this time other than medical therapy with dual antiplatelets and to follow-up with Dr. Vergara in the office. 11/08 Patient developed fevers last night. Chest x-ray with basilar infiltrates given his dysarthria concern that he likely aspirated. Not requiring oxygen supplementation at this time. Does have a moist cough, denies other complaints, denies shortness of breath Review of Systems: denies headache/fever/chills/nausea/vomiting/chest or abdominal pain/diarrhea. Otherwise see above. Constitutional Vitals: Vital Signs Temp Pulse Resp BP Pulse Ox 99.6 F H 50 L 19 167/89 95 11/08/20 03:02 11/07/20 22:00 11/08/20 07:01 11/08/20 07:01 11/08/20 07:01 Period Temp Pulse Resp BP Sys/[place] Pulse Ox Last 24 Hr 99.3 F-102.9 F 50 7-24 150-195/56-143 87-98 Intake and Output 11/07/20 11/08/20 11/08/20 21:59 05:59 13:59 Intake Total 1000 183 50 Output Total 3 6 Balance 997 177 50 Weight 116.483 kg Intake & Output: Intake & Output 11/07/20 11/08/20 11/08/20 21:59 05:59 13:59 Intake Total 1000 183 50 Output Total 3 6 Balance 997 177 50 Weight 116.483 kg Intake: IV 1000 133 50 Sodium Chloride 0.9% 1,000 ml @ 1000 83 100 mls/hr IV .Q10H [facility] Rx#: [id number] Zosyn 3.375 gm In Dextrose 5% 50 50 in Water 50 ml @ 100 mls/hr IV Q6H [facility] Rx#:[id number] Oral 50 Output: # of times incontinent of urine 3 6 Other: Meal Lunch Percent of Meal Consumed 0% # Voids 1 Exam: General: Awake, obese Eyes/N/T: PERRL Head/Neck: neck supple, CV: RRR, No murmurs, Pulm: diminished b/l, subtle ronchi, no wheezing Abd: soft, nontender, +BS x4 Ext: no clubbing/cyanosis/edema Neuro: chronic left upper extremity weakness mild. face symmetrical, dysarthria present. follows commands. skin: warm/dry OBJ DATA Labs CBC & Chem 7: 11/08/20 05:45 11/08/20 05:45 Labs: Abnormal Lab Results 11/08/20 11/08/20 11/07/20 05:45 05:45 19:45 Hgb 17.2 H Neut % (Auto) Lymph % (Auto) Rock # (Auto) ESR Glucose 55 L Phosphorus Total Bilirubin 1.2 H Direct Bilirubin 0.3 H GGT 94 H Lactate Dehydrogenase 349 H C-Reactive Protein 5.70 H Globulin 4.1 H Albumin/Globulin Ratio 0.9 L Triglycerides Procalcitonin 0.10 H Urine Protein Urine Glucose (UA) 11/07/20 11/07/20 11/07/20 19:45 19:45 05:00 Hgb Neut % (Auto) Lymph % (Auto) Rock # (Auto) 0.98 H ESR 34 H Glucose Phosphorus 2.0 L Total Bilirubin Direct Bilirubin GGT 82 H Lactate Dehydrogenase 290 H C-Reactive Protein 2.50 H Globulin Albumin/Globulin Ratio Triglycerides Procalcitonin Urine Protein Urine Glucose (UA) 11/06/20 11/06/20 11/06/20 22:28 09:22 09:22 Hgb Neut % (Auto) Lymph % (Auto) Rock # (Auto) ESR Glucose 314 H Phosphorus Total Bilirubin Direct Bilirubin GGT Lactate Dehydrogenase C-Reactive Protein Globulin Albumin/Globulin Ratio Triglycerides 158 H Procalcitonin Urine Protein >=500 A Urine Glucose (UA) >=500 A 11/06/20 09:22 Hgb Neut % (Auto) 36.0 L Lymph % (Auto) 54.2 H Rock # (Auto) ESR Glucose Phosphorus Total Bilirubin Direct Bilirubin GGT Lactate Dehydrogenase C-Reactive Protein Globulin Albumin/Globulin Ratio Triglycerides Procalcitonin Urine Protein Urine Glucose (UA) Meds: Medications Acetaminophen (Acetaminophen 325 Mg Tablet) 650 mg PO Q6HP PRN PRN Reason: PAIN/FEVER > 101 Last Admin: 11/07/20 19:02 Dose: 650 mg Documented by: Albuterol/Ipratropium (Ipratropium/Albuterol 3 Ml Ampul.Neb) 3 ml NEB Q4HP PRN PRN Reason: Shortness Of Breath Aspirin (Aspirin 81 Mg Tab.Chew) 81 mg PO DAILY [facility] Last Admin: 11/07/20 08:39 Dose: 81 mg Documented by: Atorvastatin Calcium (Atorvastatin 40 Mg Tablet) 80 mg PO HS [facility] Last Admin: 11/07/20 21:22 Dose: Not Given Documented by: Clopidogrel Bisulfate (Clopidogrel 75 Mg Tablet) 75 mg PO DAILY [facility] Last Admin: 11/07/20 08:39 Dose: 75 mg Documented by: Dextrose (Dextrose 50% 50 Ml Vial) 0 ml IV UD PRN PRN Reason: Hypoglycemia Last Admin: 11/08/20 03:31 Dose: 25 ml Documented by: Diagnostic Test (Pha) (Accu-Chek 1 Each Strip) 1 each FS Q4H [facility] Last Admin: 11/08/20 07:19 Dose: 1 each Documented by: Docusate Sodium (Docusate Sodium 100 Mg Capsule) 100 mg PO BID [facility] Last Admin: 11/07/20 21:22 Dose: Not Given Documented by: Enoxaparin Sodium (Enoxaparin 40 Mg/0.4 Ml Syringe) 40 mg SQ DAILY [facility] Last Admin: 11/07/20 08:38 Dose: 40 mg Documented by: Glucose (Dextrose 31 Gm Oral.Susp) 15 gm PO PRN PRN PRN Reason: Hypoglycemia Hydralazine HCl (Hydralazine 20 Mg/Ml Vial) 0 mg IV Q2HP PRN PRN Reason: Hypertension Potassium Chloride 40 meq/ (Dextrose) 520 mls @ 130 mls/hr IV UD PRN PRN Reason: Potassium < 3 Magnesium Sulfate (Magnesium Sulfate) 2 gm in 50 mls @ 50 mls/hr IV UD PRN PRN Reason: Magnesium </= 1.6 Piperacillin Sod/Tazobactam (Sod 3.375 gm/ Dextrose) 50 mls @ 100 mls/hr IV Q6H [facility]; Protocol Last Infusion: 11/08/20 06:26 Dose: Infused Documented by: Potassium Chloride 20 meq/ (Sodium Chloride) 1,010 mls @ 100 mls/hr IV .Q10H6M [facility] Last Admin: 11/07/20 22:10 Dose: 100 mls/hr Documented by: Insulin Human Lispro (Insulin Lispro 1 Unit/0.01 Ml Unit) 0 unit SQ Q4H [facility]; Protocol Last Admin: 11/08/20 07:20 Dose: Not Given Documented by: Insulin Lispro Protam/Lispro Human (Insulin, 75/25 Npl/Lispro 1 Unit/0.01 Ml Unit) 55 unit SQ DAILY [facility] Last Admin: 11/07/20 08:46 Dose: 55 unit Documented by: Insulin Lispro Protam/Lispro Human (Insulin, 75/25 Npl/Lispro 1 Unit/0.01 Ml Unit) 70 unit SQ [facility] Last Admin: 11/07/20 21:27 Dose: 70 units Documented by: Ondansetron HCl (Ondansetron 4 Mg/2 Ml Vial) 4 mg IV Q4HP PRN PRN Reason: Nausea And Vomiting Pantoprazole Sodium (Pantoprazole 40 Mg Vial) 40 mg IV QAMAC [facility] Last Admin: 11/08/20 06:42 Dose: 40 mg Documented by: Potassium Chloride (Potassium Chloride 20 Meq Tablet) 40 meq PO UD PRN PRN Reason: Potssium is 3-3.5 Last Admin: 11/07/20 08:38 Dose: 40 meq Documented by: Potassium Chloride (Potassium Chloride 20 Meq Tablet) 40 meq PO UD PRN PRN Reason: Potassium < 3 Senna (Sennosides 1 Tablet) 2 tab PO DAILYP PRN PRN Reason: Constipation Sodium Chloride (0.9 % Sodium Chloride 10 Ml Syringe) 10 ml IV Q8 [facility] Last Admin: 11/08/20 05:53 Dose: Not Given Documented by: Tamsulosin HCl (Tamsulosin 0.4 Mg Capsule) 0.8 mg PO HS [facility] Last Admin: 11/07/20 21:22 Dose: Not Given Documented by: A/P Narrative A/P Narrative: A: *CVA Cerebellar vermis (moderate sized): with Dysarthria/Ataxia -(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 Vergara -dell pending -abx for aspiration pna -diet per ST -ST/PT/OT -SSI, insulin -tight glycemic control 140-180 -CM for placement -ppx: lovenox/ppi DNR Time Spent With Patient Time: Total time spent is greater than 50% in coordination of care (as documented) at patient's floor/unit and/or counseling patient: QUALITY Stroke Onset of Symptoms Date: 11/06/20 Onset of Symptoms Time: 08:00 Symptom Onset Unknown: Yes VTE Deep Vein Thrombosis/Pulmonary Embolism Present on Admission: No
[2020-11-08 07:45] LABS: Lymphocytes % 11 % (15-49); Monocytes % (Manual) 3 % (1-12); Platelet Estimate NORMAL (Normal); RBC Morphology NORMAL (Normal); Segmented Neutrophils % 86 % (38-78)
[2020-11-08] MEDS ORDERED: hydrALAZINE 20 MG/ML VIAL IV PRN ×2 (07:45→10:43)
[2020-11-08] MEDS: DOCUSATE SODIUM 100 MG CAPSULE PO SCH ×2 (08:06→20:22)
[2020-11-08] MEDS: ASPIRIN 81 MG TAB.CHEW PO SCH (08:06)
[2020-11-08] MEDS: CLOPIDOGREL 75 MG TABLET PO SCH (08:06)
[2020-11-08] MEDS: ENOXAPARIN 40 MG/0.4 ML SYRINGE SQ SCH (08:06)
[2020-11-08] MEDS: POTASSIUM CHLORIDE 20 MEQ in 0.45 % SODIUM CHLORIDE 1,000 ML IV SCH (08:26)
[2020-11-08] MEDS ORDERED: INSULIN, 75/25 NPL/LISPRO 1 UNIT/0.01 ML UNIT SQ SCH ×3 (09:00→21:00)
--- NOTE | 2020-11-08 10:29 | Discharge Summary ---
Discharge Provider Provider Patient information: Note initiated : 11/08/20 at 10:27 am Service Date, if different from initiated Date: [] Patient: Robert Caballero 80 y/o M admitted on 11/06/20 for Slurred Speech, Left Sided Weakness. Chief Complaint: [] Date of admission: 11/06/20 15:25 Primary care physician: Kelvin Yu MD Consults: 11/06/20 Consult to Physician [CONS] Stat Comment: Consulting Provider: Jet Hawley Reason For Exam: Physician to Consult 11/06/20 09:37 Consult to Physician [CONS] Stat Comment: Consulting Provider: Telestroke,Provider Reason For Exam: Physician to Consult Discharge Meds Discharge Medications Home Medications aspirin 81 mg tablet,delayed release 81 mg PO QDAY 02/13/18 [History Confirmed 11/06/20 Last Taken Unknown] omega-3 fatty acids 1,000 mg capsule 1,000 mg PO QDAY 02/13/18 [History Confirmed 11/06/20 Last Taken Unknown] insulin syr/ndl U100 half jose 0.5 mL 31 gauge x 5/16" #100 each 07/28/19 [Rx Confirmed 11/06/20 Last Taken Unknown] insulin U-500 syringe-needle 1/2 mL 31 gauge x 15/64" #100 each 10/05/19 [History Confirmed 11/06/20 Last Taken Unknown] tamsulosin 0.4 mg capsule 0.8 mg PO HS 10/05/19 [History Confirmed 11/07/20 Last Taken Unknown] pen needle, diabetic 33 gauge x 5/32" #100 each 06/06/20 [Rx Confirmed 11/06/20 Last Taken Unknown] insulin NPH-regular 70-30 U-100 insulin 100 unit/mL subcutaneous pen See Rx Instructions .ROUTE .COMPLEX 30 Days #3 ml 07/19/20 [Rx Confirmed 11/06/20 Last Taken Unknown] losartan 100 mg-hydrochlorothiazide 25 mg tablet 1 tab PO QDAY #90 tab 08/15/20 [Rx Confirmed 11/06/20 Last Taken Unknown] metoprolol succinate 25 mg tablet,extended release 24 hr 25 mg PO .Q HS #90 tab 08/17/20 [Rx Confirmed 11/06/20 Last Taken Unknown] blood-glucose meter #1 ea 10/02/20 [Rx Confirmed 11/06/20 Last Taken Unknown] blood sugar diagnostic #100 ea 10/04/20 [Rx Confirmed 11/06/20 Last Taken Unknown] blood sugar diagnostic #100 ea 10/27/20 [Rx Confirmed 11/06/20 Last Taken Unknown] insulin aspart U-100 100 unit/mL (3 mL) subcutaneous pen See Rx Instructions SUB-Q .COMPLEX #15 ml MDD 80 11/01/20 [Rx Confirmed 11/06/20 Last Taken Unknown] amlodipine 5 mg PO BID 11/06/20 [History Confirmed 11/06/20 Last Taken Unknown] furosemide 40 mg PO QDAY PRN 11/06/20 [History Confirmed 11/06/20 Last Taken Unknown] amoxicillin-pot clavulanate [Augmentin] 1 tab PO Q12H #8 tab 11/08/20 [Rx Last Taken Unknown] atorvastatin 80 mg PO HS #60 tab 11/08/20 [Rx Last Taken Unknown] clopidogrel 75 mg PO DAILY #30 tab 11/08/20 [Rx Last Taken Unknown] COURSE Hospital Course Hospital course: Interval history: History of present illness: Mr. Caballero is a 80 year old M Presents the ED with slurring of speech ataxia and some left-sided weakness. Last seen normal 8 this morning. Patient's history is significant for a stroke in June where he was treated at [facility] it had a atypical appearance and was concern for mass and underwent craniotomy with tissue biopsy confirming that was ischemic stroke there was no hemorrhagic stroke mentioned in any documentation. Patient is on aspirin and states has been taking it daily, 81 mg. I do not see a statin medication on board. Case was discussed with stroke neurologist in the ED who recommended admission and MRI and that patient was not a TPA candidate. Per the history of the patient he states he was walking in the kitchen and was started open the refrigerator door but is becoming increasingly weak. His helped him to the chair he started having slurring of speech. Denies any headache fever chills chest pain shortness of breath. Vision intact per patient. Reviewing charts from [facility] admission in June for stroke. 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 Case was discussed with interventional radiology at the time and felt no intervention was needed at that time - likely given the location of the stroke on that presentation. MRI today reveals acute stroke to superior cerebellar vermis. I discussed the case with Dr. Vergara who recommended DAPT (which had already been started), no immediate need for intervention, and to f/u with him outpt for further evaluation of the vertebral artery with potential intervention at that time. 11/07 Patient with slurred speech. Seen by speech therapy and placed on pured diet. CTA head neck did not mention vertebral stenosis as it didn't O[place] but he did mention some cerebellar artery abnormalities and some stenosis in P1 P2 of cerebral arteries. Discussed the case again with Dr. Vergara. MRI revealing cerebellar stroke Discussed the CTA findings with Dr. Vergara regarding superior cerebellar arteries as well as the cerebral arteries. He reiterated nothing to be done at this time other than medical therapy with dual antiplatelets and to follow-up with Dr. Vergara in the office. 11/08 Patient developed fevers last night. Chest x-ray with basilar infiltrates given his dysarthria concern that he likely aspirated. Not requiring oxygen supplementation at this time. Does have a moist cough, denies other complaints, denies shortness of breath Decreased home insulin for low blood sugars given decreased oral intake. titrate up as able. 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): -Case discussed with stroke neurologist in ED, note TPA candidate -pt has been on ASA, do not see statin on home med list -CTA with patent carotids/vertebral *adán Aspiration pneumonitis vs pneumonia: 2/2 above -febrile o/n *Oropharyngeal dysphagia: *HTN: on norvasc/toprol/losartan/hctz *Hypothyroidism: *Obesity: *DM: Discharge diagnosis: Stroke aspiration pneumonia Secondary discharge diagnosis: Oral pharyngeal dysphagia hypertension hypothyroidism obesity diabetes Time Spent with Patient Time attestation: Total time spent providing and/or coordinating discharge services: Time spent: Greater than 30 minutes EXAM Constitutional Vitals: Temp Pulse Resp BP Pulse Ox 99.2 F H 50 L 20 180/79 96 11/08/20 08:31 11/07/20 22:00 11/08/20 09:02 11/08/20 09:01 11/08/20 09:02 Discharge Data Data Completed and Pending Labs on day of discharge: Labs from last 24 hours 11/08/20 11/08/20 11/07/20 05:45 05:45 19:45 WBC 10.5 RBC 5.31 Hgb 17.2 H Hct 52.1 MCV 98.1 MCH 32.4 MCHC 33.0 RDW 13.1 Plt Count 217 MPV 9.0 Neut % (Auto) Lymph % (Auto) Wise % (Auto) Eos % (Auto) Baso % (Auto) Lymph # (Auto) Wise # (Auto) Eos # (Auto) Baso # (Auto) Seg Neutrophils % 86 H Lymphocytes % 11 L Monocytes % (Manual) 3 Absolute Neutrophils Platelet Estimate Normal RBC Morphology Normal ESR Sodium 144 Potassium 3.9 Chloride 108 Carbon Dioxide 27 Anion Gap 9.0 BUN 20 Creatinine 1.2 GFR Calculation 57 Glucose 55 L Uric Acid 5.8 Calcium 9.3 Phosphorus 3.2 Magnesium 2.2 Total Bilirubin 1.2 H Direct Bilirubin 0.3 H GGT 94 H AST 39 ALT 18 Alkaline Phosphatase 52 Lactate Dehydrogenase 349 H C-Reactive Protein 5.70 H Total Protein 7.7 Albumin 3.6 Globulin 4.1 H Albumin/Globulin Ratio 0.9 L Triglycerides 98 Procalcitonin 0.10 H 11/07/20 11/07/20 19:45 19:45 WBC 10.4 RBC 4.66 Hgb 15.2 Hct 45.0 MCV 96.6 MCH 32.6 MCHC 33.8 RDW 13.0 Plt Count 206 MPV 9.0 Neut % (Auto) 72.9 Lymph % (Auto) 17.1 Wise % (Auto) 9.4 Eos % (Auto) 0.2 Baso % (Auto) 0.4 Lymph # (Auto) 1.78 Wise # (Auto) 0.98 H Eos # (Auto) 0.02 Baso # (Auto) 0.04 Seg Neutrophils % Lymphocytes % Monocytes % (Manual) Absolute Neutrophils 7.57 Platelet Estimate RBC Morphology ESR 34 H Sodium Potassium Chloride Carbon Dioxide Anion Gap BUN Creatinine GFR Calculation Glucose Uric Acid Calcium Phosphorus Magnesium Total Bilirubin Direct Bilirubin GGT AST ALT Alkaline Phosphatase Lactate Dehydrogenase C-Reactive Protein 2.50 H Total Protein Albumin Globulin Albumin/Globulin Ratio Triglycerides Procalcitonin Discharge Plan Patient/Caregiver Discharge Instructions Activity: increase activity as tolerated Diet: Dysphagia Level 4 Pureed Foods Activity Restrictions/Additional Instructions: Follow-up with speech therapy, PT, OT. Prescriptions: New atorvastatin 40 mg Tablet 80 mg PO HS Qty: 60 RF: 0 clopidogrel 75 mg Tablet 75 mg PO DAILY Qty: 30 RF: 0 amoxicillin-pot clavulanate [Augmentin] 875-125 mg tablet 1 tab PO Q12H Qty: 8 RF: 0 Continued (DME) pen needle, diabetic [Easy Comfort Pen Ferrum] 33 gauge x 5/32" needle See Rx Instructions .ROUTE .MEDSUPPLY Qty: 100 RF: 5 (DME) insulin syr/ndl U100 half jose 0.5 mL 31 gauge x 5/16" syringe See Rx Instructions .ROUTE .MEDSUPPLY Qty: 100 RF: 12 losartan-hydrochlorothiazide 100-25 mg tablet 1 tab PO QDAY Qty: 90 RF: 1 metoprolol succinate 25 mg tablet extended release 24 hr 25 mg PO .Q HS Qty: 90 RF: 0 (DME) blood-glucose meter [FreeStyle Lite Meter] Kit See Rx Instructions .ROUTE .MEDSUPPLY Qty: 1 RF: 0 (DME) FreeStyle Lite Strips Strip See Rx Instructions .ROUTE .MEDSUPPLY Qty: 100 RF: 6 aspirin [Adult Aspirin Regimen] 81 mg tablet,delayed release (DR/EC) 81 mg PO QDAY RF: 0 omega-3 fatty acids [Fish Oil Concentrate] 1,000 mg capsule 1,000 mg PO QDAY RF: 0 tamsulosin [Flomax] 0.4 mg capsule 0.8 mg PO HS RF: 0 (DME) BD Insulin Syringe U-500 1/2 mL 31 gauge x 15/64" syringe See Rx Instructions .ROUTE .MEDSUPPLY Qty: 100 RF: 0 (DME) True Metrix Glucose Test Strip Strip See Rx Instructions .ROUTE .MEDSUPPLY Qty: 100 RF: 11 furosemide 40 mg tablet 40 mg PO QDAY PRN (Reason: edema) RF: 0 amlodipine 5 mg tablet 5 mg PO BID RF: 0 No Action Novolog Flexpen U-100 Insulin 100 unit/mL (3 mL) insulin pen See Rx Instructions SUB-Q .COMPLEX MDD 80 Qty: 15 RF: 3 Novolin 70-30 FlexPen U-100 100 unit/mL (70-30) insulin pen See Rx Instructions .ROUTE .COMPLEX 30 Days Qty: 3 RF: 6 Follow Up Plan Follow up with: Kelvin Yu MD [Primary Care Provider] - Patient Disposition: er [facility] Prognosis: Undetermined Rehab Potential: Fair I certify that the patient requires SNF services: Yes Overall status at discharge: patient is not back to baseline QUALITY VTE Deep Vein Thrombosis/Pulmonary Embolism Present on Admission: No
[2020-11-08] MEDS ORDERED: IOPAMIDOL 100 ML BOTTLE IV ONE (10:43)
[2020-11-08] MEDS ORDERED: DEXTROSE 31 GM ORAL.SUSP PO PRN ×2 (10:43→13:45)
[2020-11-08] MEDS ORDERED: SENNOSIDES 1 TABLET PO PRN (10:43)
[2020-11-08] MEDS ORDERED: POTASSIUM CHLORIDE 20 MEQ TABLET PO PRN ×2 (10:43)
[2020-11-08] MEDS ORDERED: POTASSIUM CHLORIDE 20 MEQ in 0.45 % SODIUM CHLORIDE 1,000 ML IV SCH (10:43)
[2020-11-08] MEDS ORDERED: POTASSIUM CHLORIDE 40 MEQ in DEXTROSE 5% IN WATER 500 ML IV PRN (10:43)
[2020-11-08] MEDS ORDERED: MAGNESIUM SULFATE 2 GM/50 ML BAG IV PRN (10:43)
[2020-11-08] MEDS ORDERED: ACETAMINOPHEN 325 MG TABLET PO PRN (10:43)
[2020-11-08] MEDS ORDERED: ONDANSETRON 4 MG/2 ML VIAL IV PRN (10:43)
[2020-11-08] MEDS ORDERED: IPRATROPIUM/ALBUTEROL 3 ML AMPUL.NEB NEB PRN (10:43)
[2020-11-08] MEDS ORDERED: DEXTROSE 50% 50 ML VIAL IV PRN ×2 (10:43→13:44)
[2020-11-08] MEDS ORDERED: INSULIN, 75/25 NPL/LISPRO 1 UNIT/0.01 ML UNIT SQ ONE (11:02)
[2020-11-08] MEDS ORDERED: INSULIN LISPRO 1 UNIT/0.01 ML UNIT SQ SCH (11:33)
[2020-11-08] MEDS: TAMSULOSIN 0.4 MG CAPSULE PO SCH (20:22)
[2020-11-08] MEDS: ATORVASTATIN 40 MG TABLET PO SCH (20:22)
[2020-11-08] MEDS ORDERED: METOPROLOL SUCCINATE 25 MG TAB.XL.24H PO SCH ×2 (21:00)
[2020-11-09] MEDS: INSULIN LISPRO 1 UNIT/0.01 ML UNIT SQ SCH ×6 (04:02→23:45)
[2020-11-09] MEDS: 0.9 % SODIUM CHLORIDE 10 ML SYRINGE IV SCH ×3 (05:37→20:06)
[2020-11-09] MEDS: PIPERACILLIN SODIUM/TAZOBACTAM 3.375 GM in DEXTROSE 5% IN WATER 50 ML IV SCH ×4 (05:37→23:45)
--- NOTE | 2020-11-09 07:55 | Internal Med Progress Note ---
SUBJECTIVE Subjective Patient information: Note initiated : 11/09/20 at 7:52 am Service Date, if different from initiated Date: [] Patient: Robert Caballero a 80 y/o M admitted on 11/06/20 for Slurred Speech, Left Sided Weakness. Chief Complaint: [] Interval history: History of present illness: Mr. Caballero is a 80 year old M Presents the ED with slurring of speech ataxia and some left-sided weakness. Last seen normal 8 this morning. Patient's history is significant for a stroke in June where he was treated at [facility] it had a atypical appearance and was concern for mass and underwent craniotomy with tissue biopsy confirming that was ischemic stroke there was no hemorrhagic stroke mentioned in any documentation. Patient is on aspirin and states has been taking it daily, 81 mg. I do not see a statin medication on board. Case was discussed with stroke neurologist in the ED who recommended admission and MRI and that patient was not a TPA candidate. Per the history of the patient he states he was walking in the kitchen and was started open the refrigerator door but is becoming increasingly weak. His helped him to the chair he started having slurring of speech. Denies any headache fever chills chest pain shortness of breath. Vision intact per patient. Reviewing charts from [facility] admission in June for stroke. 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 Case was discussed with interventional radiology at the time and felt no intervention was needed at that time - likely given the location of the stroke on that presentation. MRI today reveals acute stroke to superior cerebellar vermis. I discussed the case with Dr. Vergara who recommended DAPT (which had already been started), no immediate need for intervention, and to f/u with him outpt for further evaluation of the vertebral artery with potential intervention at that time. 11/07 Patient with slurred speech. Seen by speech therapy and placed on pured diet. 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 Discussed the case again with Dr. Vergara. MRI revealing cerebellar stroke Discussed the CTA findings with Dr. Vergara regarding superior cerebellar arteries as well as the cerebral arteries. He reiterated nothing to be done at this time other than medical therapy with dual antiplatelets and to follow-up with Dr. Vergara in the office. 11/08 Patient developed fevers last night. Chest x-ray with basilar infiltrates given his dysarthria concern that he likely aspirated. Not requiring oxygen supplementation at this time. Does have a moist cough, denies other complaints, denies shortness of breath 11/09 Other than some low blood sugars, no overnight event or new complaints. Will decrease home insulin further. Denying any coughing this morning. No shortness of breath. Review of Systems: denies headache/fever/chills/nausea/vomiting/chest or abdominal pain/diarrhea. Otherwise see above. Constitutional Vitals: Vital Signs Temp Pulse Resp BP Pulse Ox 98.8 F 57 L 18 184/84 93 11/09/20 03:52 11/09/20 03:52 11/09/20 03:52 11/09/20 03:52 11/09/20 03:52 Period Temp Pulse Resp BP Sys/[place] Pulse Ox Last 24 Hr 98.6 F-101.1 F 44-60 18-22 154-194/76-95 93-96 Intake and Output 11/08/20 11/09/20 11/09/20 21:59 05:59 13:59 Intake Total 350 410 50 Output Total 3 5 Balance 347 405 50 Weight 113.58 kg Intake & Output: Intake & Output 11/08/20 11/09/20 11/09/20 21:59 05:59 13:59 Intake Total 350 410 50 Output Total 3 5 Balance 347 405 50 Weight 113.58 kg Intake: IV 50 50 50 Zosyn 3.375 gm In Dextrose 5% 50 50 50 in Water 50 ml @ 100 mls/hr IV Q6H [facility] Rx#:[id number] Oral 300 360 Output: # of times incontinent of urine 3 5 Other: Meal Dinner Percent of Meal Consumed 75% Feeding Ability Total Assistance # Voids 1 1 Exam: General: Awake, obese Eyes/N/T: PERRL Head/Neck: neck supple, CV: RRR, No murmurs, Pulm: diminished b/l, subtle ronchi, no wheezing Abd: soft, nontender, +BS x4 Ext: no clubbing/cyanosis/edema Neuro: chronic left upper extremity weakness mild. face symmetrical, dysarthria present/slurring of speech minimally improved. follows commands. skin: warm/dry OBJ DATA Labs CBC & Chem 7: 11/08/20 05:45 11/08/20 05:45 Labs: Abnormal Lab Results 11/08/20 11/08/20 11/07/20 05:45 05:45 19:45 Hgb 17.2 H Neut % (Auto) Lymph % (Auto) [place] # (Auto) Seg Neutrophils % 86 H Lymphocytes % 11 L ESR Glucose 55 L Phosphorus Total Bilirubin 1.2 H Direct Bilirubin 0.3 H GGT 94 H Lactate Dehydrogenase 349 H C-Reactive Protein 5.70 H Globulin 4.1 H Albumin/Globulin Ratio 0.9 L Triglycerides Procalcitonin 0.10 H Urine Protein Urine Glucose (UA) 11/07/20 11/07/20 11/07/20 19:45 19:45 05:00 Hgb Neut % (Auto) Lymph % (Auto) [place] # (Auto) 0.98 H Seg Neutrophils % Lymphocytes % ESR 34 H Glucose Phosphorus 2.0 L Total Bilirubin Direct Bilirubin GGT 82 H Lactate Dehydrogenase 290 H C-Reactive Protein 2.50 H Globulin Albumin/Globulin Ratio Triglycerides Procalcitonin Urine Protein Urine Glucose (UA) 11/06/20 11/06/20 11/06/20 22:28 09:22 09:22 Hgb Neut % (Auto) Lymph % (Auto) [place] # (Auto) Seg Neutrophils % Lymphocytes % ESR Glucose 314 H Phosphorus Total Bilirubin Direct Bilirubin GGT Lactate Dehydrogenase C-Reactive Protein Globulin Albumin/Globulin Ratio Triglycerides 158 H Procalcitonin Urine Protein >=500 A Urine Glucose (UA) >=500 A 11/06/20 09:22 Hgb Neut % (Auto) 36.0 L Lymph % (Auto) 54.2 H [place] # (Auto) Seg Neutrophils % Lymphocytes % ESR Glucose Phosphorus Total Bilirubin Direct Bilirubin GGT Lactate Dehydrogenase C-Reactive Protein Globulin Albumin/Globulin Ratio Triglycerides Procalcitonin Urine Protein Urine Glucose (UA) Meds: Medications Acetaminophen (Acetaminophen 325 Mg Tablet) 650 mg PO Q6HP PRN PRN Reason: PAIN/FEVER > 101 Last Admin: 11/08/20 16:07 Dose: 650 mg Documented by: Albuterol/Ipratropium (Ipratropium/Albuterol 3 Ml Ampul.Neb) 3 ml NEB Q4HP PRN PRN Reason: Shortness Of Breath Amlodipine Besylate (Amlodipine 5 Mg Tablet) 5 mg PO DAILY LEWIS Aspirin (Aspirin 81 Mg Tab.Chew) 81 mg PO DAILY [facility] Atorvastatin Calcium (Atorvastatin 40 Mg Tablet) 80 mg PO HS [facility] Last Admin: 11/08/20 20:22 Dose: 80 mg Documented by: Clopidogrel Bisulfate (Clopidogrel 75 Mg Tablet) 75 mg PO DAILY [facility] Dextrose (Dextrose 50% 50 Ml Vial) 0 ml IV UD PRN PRN Reason: Hypoglycemia Diagnostic Test (Pha) (Accu-Chek 1 Each Strip) 1 each FS Q4H [facility] Last Admin: 11/09/20 07:50 Dose: 1 each Documented by: Docusate Sodium (Docusate Sodium 100 Mg Capsule) 100 mg PO BID [facility] Last Admin: 11/08/20 20:22 Dose: 100 mg Documented by: Enoxaparin Sodium (Enoxaparin 40 Mg/0.4 Ml Syringe) 40 mg SQ DAILY [facility] Glucose (Dextrose 31 Gm Oral.Susp) 15 gm PO PRN PRN PRN Reason: Hypoglycemia Hydralazine HCl (Hydralazine 20 Mg/Ml Vial) 0 mg IV Q2HP PRN PRN Reason: Hypertension Magnesium Sulfate (Magnesium Sulfate) 2 gm in 50 mls @ 50 mls/hr IV UD PRN PRN Reason: Magnesium </= 1.6 Piperacillin Sod/Tazobactam (Sod 3.375 gm/ Dextrose) 50 mls @ 100 mls/hr IV Q6H [facility]; Protocol Last Infusion: 11/09/20 06:07 Dose: Infused Documented by: Potassium Chloride 40 meq/ (Dextrose) 520 mls @ 130 mls/hr IV UD PRN PRN Reason: Potassium < 3 Insulin Human Lispro (Insulin Lispro 1 Unit/0.01 Ml Unit) 0 unit SQ Q4H [facility]; Protocol Last Admin: 11/09/20 07:50 Dose: Not Given Documented by: Insulin Lispro Protam/Lispro Human (Insulin, 75/25 Npl/Lispro 1 Unit/0.01 Ml Unit) 30 unit SQ DAILY [facility] Insulin Lispro Protam/Lispro Human (Insulin, 75/25 Npl/Lispro 1 Unit/0.01 Ml Unit) 40 unit SQ HS [facility] Last Admin: 11/08/20 20:23 Dose: 40 unit Documented by: Metoprolol Succinate (Metoprolol Succinate 25 Mg Tab.Xl.24h) 12.5 mg PO HS [facility] Last Admin: 11/08/20 20:21 Dose: 12.5 mg Documented by: Ondansetron HCl (Ondansetron 4 Mg/2 Ml Vial) 4 mg IV Q4HP PRN PRN Reason: Nausea And Vomiting Pantoprazole Sodium (Pantoprazole 40 Mg Vial) 40 mg IV QAMAC [facility] Potassium Chloride (Potassium Chloride 20 Meq Tablet) 40 meq PO UD PRN PRN Reason: Potssium is 3-3.5 Potassium Chloride (Potassium Chloride 20 Meq Tablet) 40 meq PO UD PRN PRN Reason: Potassium < 3 Senna (Sennosides 1 Tablet) 2 tab PO DAILYP PRN PRN Reason: Constipation Sodium Chloride (0.9 % Sodium Chloride 10 Ml Syringe) 10 ml IV Q8 [facility] Last Admin: 11/09/20 05:37 Dose: 10 ml Documented by: Tamsulosin HCl (Tamsulosin 0.4 Mg Capsule) 0.8 mg PO HS [facility] Last Admin: 11/08/20 20:22 Dose: 0.8 mg Documented by: A/P Narrative A/P Narrative: A: *CVA Cerebellar vermis (moderate sized): with Dysarthria/Ataxia -(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 Jai durant for aspiration pna - transition to augmentin -diet per ST -ST/PT/OT -SSI, insulin (decrease further to 15qam and 25qpm - titrate up as able) -tight glycemic control 140-180 -CM for placement -ppx: lovenox/ppi DNR Time Spent With Patient Time: Total time spent is greater than 50% in coordination of care (as documented) at patient's floor/unit and/or counseling patient: QUALITY Stroke Onset of Symptoms Date: 11/06/20 Onset of Symptoms Time: 08:00 Symptom Onset Unknown: Yes VTE Deep Vein Thrombosis/Pulmonary Embolism Present on Admission: No
[2020-11-09] MEDS ORDERED: INSULIN, 75/25 NPL/LISPRO 1 UNIT/0.01 ML UNIT SQ SCH (09:00)
[2020-11-09] MEDS ORDERED: amLODIPine 5 MG TABLET PO SCH (09:00)
[2020-11-09] MEDS: INSULIN, 75/25 NPL/LISPRO 1 UNIT/0.01 ML UNIT SQ SCH ×2 (10:19→20:05)
[2020-11-09] MEDS: PANTOPRAZOLE 40 MG VIAL IV SCH (10:19)
[2020-11-09] MEDS: ASPIRIN 81 MG TAB.CHEW PO SCH ×2 (10:19→14:18)
[2020-11-09] MEDS: DOCUSATE SODIUM 100 MG CAPSULE PO SCH ×3 (10:19→20:06)
[2020-11-09] MEDS: amLODIPine 5 MG TABLET PO SCH (10:20)
[2020-11-09] MEDS: ENOXAPARIN 40 MG/0.4 ML SYRINGE SQ SCH (10:20)
[2020-11-09] MEDS: CLOPIDOGREL 75 MG TABLET PO SCH ×2 (10:21→14:19)
[2020-11-09] MEDS: ATORVASTATIN 40 MG TABLET PO SCH (20:06)
[2020-11-09] MEDS: TAMSULOSIN 0.4 MG CAPSULE PO SCH (20:06)
[2020-11-10] MEDS: INSULIN LISPRO 1 UNIT/0.01 ML UNIT SQ SCH ×5 (04:15→22:27)
[2020-11-10] MEDS: PIPERACILLIN SODIUM/TAZOBACTAM 3.375 GM in DEXTROSE 5% IN WATER 50 ML IV SCH ×3 (05:30→17:28)
[2020-11-10] MEDS: 0.9 % SODIUM CHLORIDE 10 ML SYRINGE IV SCH ×3 (05:30→22:29)
[2020-11-10] MEDS: PANTOPRAZOLE 40 MG VIAL IV SCH (08:10)
[2020-11-10] MEDS: INSULIN, 75/25 NPL/LISPRO 1 UNIT/0.01 ML UNIT SQ SCH ×2 (08:18→22:29)
[2020-11-10] MEDS: DOCUSATE SODIUM 100 MG CAPSULE PO SCH ×2 (08:36→22:28)
[2020-11-10] MEDS: amLODIPine 5 MG TABLET PO SCH (08:36)
[2020-11-10] MEDS: ASPIRIN 81 MG TAB.CHEW PO SCH (08:36)
[2020-11-10] MEDS: ENOXAPARIN 40 MG/0.4 ML SYRINGE SQ SCH (08:37)
[2020-11-10] MEDS: CLOPIDOGREL 75 MG TABLET PO SCH (08:38)
[2020-11-10 09:03] LABS: ALT/SGPT 18 U/L (<40); AST/SGOT 28 U/L (<40); Albumin 3.4 gm/dL (3.2-5.2); Albumin/Globulin Ratio 1.1 (1.0-2.3); Alkaline Phosphatase 53 U/L (39-117); Bilirubin,Total 1.1 mg/dL (0.1-1.0); Blood Urea Nitrogen 36 mg/dL (8-23); Calcium 8.4 mg/dL (8.6-10.4); Carbon Dioxide 26 mmol/L (22-30); Chloride 108 mmol/L (96-108); Glomerular Filtration Rate 35; Glucose 129 mg/dL (70-105)
[2020-11-10 09:11] LABS: Basophils # (Auto) 0.06 K/mcL (0.00-0.20); Basophils % (Auto) 0.6 % (0.0-2.0); Eosinophils # (Auto) 0.11 K/mcL (0.00-0.70); Eosinophils % (Auto) 1.1 % (0.0-7.0); Hematocrit 49.9 % (41.0-55.0); Hemoglobin 16.3 g/dL (13.5-16.5); Lymphocytes # (Auto) 1.46 K/mcL (1.50-4.80); Lymphocytes % (Auto) 15.3 % (15.0-49.0); Mean Cell Volume 100.2 fL (80.0-100.0); Mean Corpuscular HGB Conc 32.7 g/dL (31.0-36.0); Mean Platelet Volume 9.6 fL (7.4-10.4); Monocytes # (Auto) 0.78 K/mcL (0.10-0.90); Monocytes % (Auto) 8.2 % (1.0-12.0); Neutrophils % (Auto) 74.8 % (38.0-78.0); Platelet Count 210 K/mcL (140-440); RBC 4.98 M/mcL (4.50-5.90); Red Cell Distribution Width 13.1 % (11.5-14.5); WBC 9.6 K/mcL (4.5-11.0)
[2020-11-10] MEDS ORDERED: amLODIPine 5 MG TABLET PO ONE (10:55)
[2020-11-10] MEDS: 0.45 % SODIUM CHLORIDE 1,000 ML IV SCH (11:03)
--- NOTE | 2020-11-10 11:12 | Internal Med Progress Note ---
SUBJECTIVE Subjective Patient information: Note initiated : 11/10/20 at 10:57 am Service Date, if different from initiated Date: [] Patient: Robert Caballero a 80 y/o M admitted on 11/06/20 for Slurred Speech, Left Sided Weakness. Chief Complaint: [stroke] Interval history: History of present illness: Mr. Caballero is a 80 year old M Presents the ED with slurring of speech ataxia and some left-sided weakness. Last seen normal 8 this morning. Patient's history is significant for a stroke in June where he was treated at [facility] it had a atypical appearance and was concern for mass and underwent craniotomy with tissue biopsy confirming that was ischemic stroke there was no hemorrhagic stroke mentioned in any documentation. Patient is on aspirin and states has been taking it daily, 81 mg. I do not see a statin medication on board. Case was discussed with stroke neurologist in the ED who recommended admission and MRI and that patient was not a TPA candidate. Per the history of the patient he states he was walking in the kitchen and was started open the refrigerator door but is becoming increasingly weak. His helped him to the chair he started having slurring of speech. Denies any headache fever chills chest pain shortness of breath. Vision intact per patient. Reviewing charts from [facility] admission in June for stroke. 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 Case was discussed with interventional radiology at the time and felt no intervention was needed at that time - likely given the location of the stroke on that presentation. MRI today reveals acute stroke to superior cerebellar vermis. I discussed the case with Dr. Vergara who recommended DAPT (which had already been started), no immediate need for intervention, and to f/u with him outpt for further evaluation of the vertebral artery with potential intervention at that time. 11/07 Patient with slurred speech. Seen by speech therapy and placed on pured diet. 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 Discussed the case again with Dr. Vergara. MRI revealing cerebellar stroke Discussed the CTA findings with Dr. Vergara regarding superior cerebellar arteries as well as the cerebral arteries. He reiterated nothing to be done at this time other than medical therapy with dual antiplatelets and to follow-up with Dr. Vergara in the office. 11/08 Patient developed fevers last night. Chest x-ray with basilar infiltrates given his dysarthria concern that he likely aspirated. Not requiring oxygen supplementation at this time. Does have a moist cough, denies other complaints, denies shortness of breath 11/09 Other than some low blood sugars, no overnight event or new complaints. Will decrease home insulin further. Denying any coughing this morning. No shortness of breath. 11/10: No major overnight events. No new complaints. No change in goal of therapy. Serum Cr worsening. Hypernatremia. Constitutional Vitals: Vital Signs Temp Pulse Resp BP Pulse Ox 37.1 C 54 L 18 160/75 95 11/10/20 07:14 11/10/20 07:14 11/10/20 07:14 11/10/20 07:14 11/10/20 07:14 Period Temp Pulse Resp BP Sys/[place] Pulse Ox Last 24 Hr 36.6 C-37.1 C 45-54 16-20 160-190/49-82 93-96 Intake and Output 11/09/20 11/10/20 11/10/20 21:59 05:59 13:59 Intake Total 50 290 Output Total 6 4 Balance -6 46 290 Weight 114.441 kg Intake & Output: Intake & Output 11/09/20 11/10/20 11/10/20 21:59 05:59 13:59 Intake Total 50 290 Output Total 6 4 Balance -6 46 290 Weight 114.441 kg Intake: IV 50 50 Zosyn 3.375 gm In Dextrose 5% 50 50 in Water 50 ml @ 100 mls/hr IV Q6H [facility] Rx#:[id number] Oral 240 Output: # of times incontinent of urine 6 4 Other: Meal Dinner Breakfast Percent of Meal Consumed 25% 75% Feeding Ability Total Assistance Total Assistance Stool Size Moderate Smear Stool Color Brown Brown Stool Consistency Formed Soft # Voids 1 # of times incontinent of 1 1 Bowels General appearance: cooperative and no acute distress Head Head exam: Present atraumatic and normocephalic Eye Eye exam: Present EOMI and PERRL ENT ENT exam: Present mucous membranes moist, normal exam and normal external ear exam Neck Neck exam: Present normal inspection; Absent lymphadenopathy, tenderness and thyromegaly Respiratory Respiratory exam: Absent accessory muscle use, respiratory distress and wheezes Cardiovascular Cardiovascular exam: Present normal rate and rhythm; Absent JVD GI/Abdominal GI/Abdominal exam: Present normal bowel sounds and soft; Absent organomegaly and tenderness Rectal Rectal exam: Present deferred Extremities Exam Extremities exam: Present full ROM, normal capillary refill and normal inspection; Absent tenderness Neurological Exam Neurological exam: Present alert and CN II-XII intact; Absent motor sensory deficit and oriented X3 Psychiatric Psychiatric exam: Present normal affect and normal mood; Absent anxious and depressed Skin Skin exam: Present dry and intact OBJ DATA Labs CBC & Chem 7: 11/10/20 05:50 11/10/20 05:50 Labs: Abnormal Lab Results 11/10/20 11/10/20 11/08/20 05:50 05:50 05:45 Hgb MCV 100.2 H Lymph # (Auto) 1.46 L [place] # (Auto) Seg Neutrophils % Lymphocytes % ESR Sodium 147 H BUN 36 H Creatinine 1.8 H Glucose 129 H 55 L Calcium 8.4 L Total Bilirubin 1.1 H 1.2 H Direct Bilirubin 0.3 H GGT 94 H Lactate Dehydrogenase 349 H C-Reactive Protein 5.70 H Globulin 4.1 H Albumin/Globulin Ratio 0.9 L Procalcitonin 11/08/20 11/07/20 11/07/20 05:45 19:45 19:45 Hgb 17.2 H MCV Lymph # (Auto) [place] # (Auto) Seg Neutrophils % 86 H Lymphocytes % 11 L ESR Sodium BUN Creatinine Glucose Calcium Total Bilirubin Direct Bilirubin GGT Lactate Dehydrogenase C-Reactive Protein 2.50 H Globulin Albumin/Globulin Ratio Procalcitonin 0.10 H 11/07/20 19:45 Hgb MCV Lymph # (Auto) [place] # (Auto) 0.98 H Seg Neutrophils % Lymphocytes % ESR 34 H Sodium BUN Creatinine Glucose Calcium Total Bilirubin Direct Bilirubin GGT Lactate Dehydrogenase C-Reactive Protein Globulin Albumin/Globulin Ratio Procalcitonin Meds: Medications Acetaminophen (Acetaminophen 325 Mg Tablet) 650 mg PO Q6HP PRN PRN Reason: PAIN/FEVER > 101 Last Admin: 11/08/20 16:07 Dose: 650 mg Documented by: Albuterol/Ipratropium (Ipratropium/Albuterol 3 Ml Ampul.Neb) 3 ml NEB Q4HP PRN PRN Reason: Shortness Of Breath Amlodipine Besylate (Amlodipine 5 Mg Tablet) 10 mg PO DAILY [facility] Amlodipine Besylate (Amlodipine 5 Mg Tablet) 5 mg PO ONCE ONE Stop: 11/10/20 10:56 Aspirin (Aspirin 81 Mg Tab.Chew) 81 mg PO DAILY [facility] Last Admin: 11/10/20 08:36 Dose: 81 mg Documented by: Atorvastatin Calcium (Atorvastatin 40 Mg Tablet) 80 mg PO [facility] Last Admin: 11/09/20 20:06 Dose: 80 mg Documented by: Clopidogrel Bisulfate (Clopidogrel 75 Mg Tablet) 75 mg PO DAILY [facility] Last Admin: 11/10/20 08:38 Dose: 75 mg Documented by: Dextrose (Dextrose 50% 50 Ml Vial) 0 ml IV UD PRN PRN Reason: Hypoglycemia Diagnostic Test (Pha) (Accu-Chek 1 Each Strip) 1 each FS Q4H [facility] Last Admin: 11/10/20 08:12 Dose: 1 each Documented by: Docusate Sodium (Docusate Sodium 100 Mg Capsule) 100 mg PO BID [facility] Last Admin: 11/10/20 08:36 Dose: 100 mg Documented by: Glucose (Dextrose 31 Gm Oral.Susp) 15 gm PO PRN PRN PRN Reason: Hypoglycemia Hydralazine HCl (Hydralazine 20 Mg/Ml Vial) 0 mg IV Q2HP PRN PRN Reason: Hypertension Magnesium Sulfate (Magnesium Sulfate) 2 gm in 50 mls @ 50 mls/hr IV UD PRN PRN Reason: Magnesium </= 1.6 Piperacillin Sod/Tazobactam (Sod 3.375 gm/ Dextrose) 50 mls @ 100 mls/hr IV Q6H [facility]; Protocol Last Infusion: 11/10/20 06:04 Dose: Infused Documented by: Potassium Chloride 40 meq/ (Dextrose) 520 mls @ 130 mls/hr IV UD PRN PRN Reason: Potassium < 3 Sodium Chloride (Sodium Chloride 0.45%) 1,000 mls @ 75 mls/hr IV .[id number] [facility] Insulin Human Lispro (Insulin Lispro 1 Unit/0.01 Ml Unit) 0 unit SQ Q4H [facility]; Protocol Last Admin: 11/10/20 08:18 Dose: 18 unit Documented by: Insulin Lispro Protam/Lispro Human (Insulin, 75/25 Npl/Lispro 1 Unit/0.01 Ml Unit) 25 unit SQ [facility] Last Admin: 11/09/20 20:05 Dose: 25 unit Documented by: Insulin Lispro Protam/Lispro Human (Insulin, 75/25 Npl/Lispro 1 Unit/0.01 Ml Unit) 15 unit SQ DAILY [facility] Last Admin: 11/10/20 08:18 Dose: 15 unit Documented by: Ondansetron HCl (Ondansetron 4 Mg/2 Ml Vial) 4 mg IV Q4HP PRN PRN Reason: Nausea And Vomiting Pantoprazole Sodium (Pantoprazole 40 Mg Vial) 40 mg IV QAMAC [facility] Last Admin: 11/10/20 08:10 Dose: 40 mg Documented by: Potassium Chloride (Potassium Chloride 20 Meq Tablet) 40 meq PO UD PRN PRN Reason: Potssium is 3-3.5 Potassium Chloride (Potassium Chloride 20 Meq Tablet) 40 meq PO UD PRN PRN Reason: Potassium < 3 Senna (Sennosides 1 Tablet) 2 tab PO DAILYP PRN PRN Reason: Constipation Sodium Chloride (0.9 % Sodium Chloride 10 Ml Syringe) 10 ml IV Q8 [facility] Last Admin: 11/10/20 05:30 Dose: 10 ml Documented by: Tamsulosin HCl (Tamsulosin 0.4 Mg Capsule) 0.8 mg PO HS [facility] Last Admin: 11/09/20 20:06 Dose: 0.8 mg Documented by: A/P Assessment and plan (1) Acute ischemic stroke: Status: Acute (2) Aspiration pneumonia: Status: Acute (3) Hypernatremia: Status: Acute (4) Stage 1 acute kidney injury: Status: Acute (5) 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 Qualifiers: Diabetes mellitus assistant terminal manager insulin use: with penitentiary use Qualified Code(s): E11.43 - Type 2 diabetes mellitus with diabetic autonomic (poly)neuropathy; Z79.4 - jail (current) use of insulin (6) Hypertension: Status: Chronic Qualifiers: Hypertension type: essential hypertension Qualified Code(s): I10 - Essential (primary) hypertension (7) Hyperlipidemia: Status: Chronic Qualifiers: Hyperlipidemia type: mixed hyperlipidemia Qualified Code(s): E78.2 - Mixed hyperlipidemia (8) Atrial fibrillation: Status: Acute (9) GERD (gastroesophageal reflux disease): Status: Chronic Qualifiers: Esophagitis presence: without esophagitis Qualified Code(s): K21.9 - Gastro-esophageal reflux disease without esophagitis Narrative A/P Narrative: 1. Acute ischemic stroke, superior cerebellar vermis and right frontal parietal junction: Stays in inpatient med surg Continue to discuss with family regarding overall prognosis and goal of care Out of permissive HTN phase, now need tighter blood pressure control Beta maria del carmen contraindicated now given bradycardia Increased Amlodipine from 5mg to 10mg PO daily for better blood pressure control ROMERO-i/ARB contraindicated given acute kidney injury Diuretics contraindicated given acute kidney injury Continue dysphagia diet PT OT evaluation and treatment for placement planning Aspirin Plavix Statin for secondary stroke prevention 2. Aspiration pneumonia: Supplemental oxygen via nasal cannula as needed titrate to achieve oxygen saturation >=92% Blood culture no growth to date Zosyn Tylenol cbc w/ auto diff in the AM to trend WBC Dysphagia diet as per speech therapy recs. 3. Hypernatremia: Encourage oral intake 1/2NS@75cc/hr Repeat CMP in the AM to trend serum sodium level 4. Stage 1 acute kidney injury: Avoid nephrotoxic agents 1/2NS@75cc/hr Repeat CMP in the AM to trend kidney functions 5. T2DM: HgA1c Insulin 75/25 15 unit daily and 25 unit HS Correctional scale insulin AC HS Accu Chek AC HS Hypoglycemia protocol Diabetic diet 6. Essential HTN: Out of permissive HTN phase, now need tighter blood pressure control Beta maria del carmen contraindicated now given bradycardia Increased Amlodipine from 5mg to 10mg PO daily for better blood pressure control ROMERO-i/ARB contraindicated given acute kidney injury Diuretics contraindicated given acute kidney injury 7. Mixed dyslipidemia: Continue statin therapy 8. Atrial fibrillation: Rate controlled without beta maria del carmen. Only currently on Amlodipine 5mg PO daily. As a matter of fact, he developed bradycardia with HR down to 40s overnight with current HR in the 50s. Xarelto 20mg PO HS for DVT/Stroke prevention 9. GERD: Since now patient is tolerating PO, will transition Protonix from IV to PO, 40mg PO HS GI ppx: Protonix PO HS DVT ppx: Xarelto Code status: DNI DNR Prognosis: guarded Disposition: inpatient med surg Time Spent With Patient Time: Total time spent is greater than 50% in coordination of care (as documented) at patient's floor/unit and/or counseling patient: QUALITY Stroke Onset of Symptoms Date: 11/06/20 Onset of Symptoms Time: 08:00 Symptom Onset Unknown: Yes VTE Deep Vein Thrombosis/Pulmonary Embolism Present on Admission: No
[2020-11-10] MEDS: RIVAROXABAN 15 MG TABLET PO SCH (17:28)
[2020-11-10] MEDS: TAMSULOSIN 0.4 MG CAPSULE PO SCH (22:28)
[2020-11-10] MEDS: ATORVASTATIN 40 MG TABLET PO SCH (22:28)
[2020-11-10] MEDS: PANTOPRAZOLE 40 MG TABLET PO SCH (22:28)
[2020-11-11] MEDS: PIPERACILLIN SODIUM/TAZOBACTAM 3.375 GM in DEXTROSE 5% IN WATER 50 ML IV SCH ×5 (00:12→23:30)
[2020-11-11] MEDS: INSULIN LISPRO 1 UNIT/0.01 ML UNIT SQ SCH ×6 (00:23→20:31)
[2020-11-11] MEDS: 0.45 % SODIUM CHLORIDE 1,000 ML IV SCH ×3 (03:34→18:33)
[2020-11-11] MEDS: 0.9 % SODIUM CHLORIDE 10 ML SYRINGE IV SCH ×3 (04:59→20:32)
[2020-11-11 07:29] LABS: Basophils # (Auto) 0.05 K/mcL (0.00-0.20); Basophils % (Auto) 0.5 % (0.0-2.0); Eosinophils # (Auto) 0.29 K/mcL (0.00-0.70); Eosinophils % (Auto) 2.9 % (0.0-7.0); Hemoglobin 16.3 g/dL (13.5-16.5); Lymphocytes # (Auto) 1.67 K/mcL (1.50-4.80); Lymphocytes % (Auto) 16.9 % (15.0-49.0); Mean Cell Volume 98.2 fL (80.0-100.0); Mean Corpuscular HGB Conc 33.3 g/dL (31.0-36.0); Mean Platelet Volume 9.2 fL (7.4-10.4); Monocytes # (Auto) 0.99 K/mcL (0.10-0.90); Neutrophils % (Auto) 69.7 % (38.0-78.0); Platelet Count 206 K/mcL (140-440); RBC 4.99 M/mcL (4.50-5.90); Red Cell Distribution Width 12.9 % (11.5-14.5); WBC 9.9 K/mcL (4.5-11.0)
[2020-11-11 07:39] LABS: ALT/SGPT 16 U/L (<40); AST/SGOT 22 U/L (<40); Albumin 2.8 gm/dL (3.2-5.2); Albumin/Globulin Ratio 0.8 (1.0-2.3); Alkaline Phosphatase 50 U/L (39-117); Bilirubin,Total 0.9 mg/dL (0.1-1.0); Blood Urea Nitrogen 32 mg/dL (8-23); Calcium 8.7 mg/dL (8.6-10.4); Carbon Dioxide 23 mmol/L (22-30); Chloride 114 mmol/L (96-108); Globulin 3.7 gm/dL (2.2-3.7); Glomerular Filtration Rate 47; Glucose 138 mg/dL (70-105)
[2020-11-11] MEDS: DOCUSATE SODIUM 100 MG CAPSULE PO SCH ×2 (08:01→20:30)
[2020-11-11] MEDS: CLOPIDOGREL 75 MG TABLET PO SCH (08:04)
[2020-11-11] MEDS: amLODIPine 5 MG TABLET PO SCH (08:04)
[2020-11-11] MEDS: ASPIRIN 81 MG TAB.CHEW PO SCH (08:04)
[2020-11-11] MEDS: INSULIN, 75/25 NPL/LISPRO 1 UNIT/0.01 ML UNIT SQ SCH ×2 (08:11→20:31)
--- NOTE | 2020-11-11 09:22 | Internal Med Progress Note ---
SUBJECTIVE Subjective Patient information: Note initiated : 11/11/20 at 9:16 am Service Date, if different from initiated Date: [] Patient: Robert Caballero a 80 y/o M admitted on 11/06/20 for Slurred Speech, Left Sided Weakness. Chief Complaint: [stroke] History of present illness: Mr. Caballero is a 80 year old M Presents the ED with slurring of speech ataxia and some left-sided weakness. Last seen normal 8 this morning. Patient's history is significant for a stroke in June where he was treated at [facility] it had a atypical appearance and was concern for mass and underwent craniotomy with tissue biopsy confirming that was ischemic stroke there was no hemorrhagic stroke mentioned in any documentation. Patient is on aspirin and states has been taking it daily, 81 mg. I do not see a statin medication on board. Case was discussed with stroke neurologist in the ED who recommended admission and MRI and that patient was not a TPA candidate. Per the history of the patient he states he was walking in the kitchen and was started open the refrigerator door but is becoming increasingly weak. His helped him to the chair he started having slurring of speech. Denies any headache fever chills chest pain shortness of breath. Vision intact per patient. Reviewing charts from [facility] admission in June for stroke. 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 Case was discussed with interventional radiology at the time and felt no intervention was needed at that time - likely given the location of the stroke on that presentation. MRI today reveals acute stroke to superior cerebellar vermis. I discussed the case with Dr. Vergara who recommended DAPT (which had already been started), no immediate need for intervention, and to f/u with him outpt for further evaluation of the vertebral artery with potential intervention at that time. 11/07 Patient with slurred speech. Seen by speech therapy and placed on pured diet. 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 Discussed the case again with Dr. Vergara. MRI revealing cerebellar stroke Discussed the CTA findings with Dr. Vergara regarding superior cerebellar arteries as well as the cerebral arteries. He reiterated nothing to be done at this time other than medical therapy with dual antiplatelets and to follow-up with Dr. Vergara in the office. 11/08 Patient developed fevers last night. Chest x-ray with basilar infiltrates given his dysarthria concern that he likely aspirated. Not requiring oxygen supplementation at this time. Does have a moist cough, denies other complaints, denies shortness of breath 11/09 Other than some low blood sugars, no overnight event or new complaints. Will decrease home insulin further. Denying any coughing this morning. No shortness of breath. 11/10: No major overnight events. No new complaints. No change in goal of therapy. Hypernatremia. 11/11: No major overnight events. No new complaints. No change in goal of therapy. Hypernatremia. Afebrile overnight. Constitutional Vitals: Vital Signs Temp Pulse Resp BP Pulse Ox 36.6 C 75 16 167/80 96 11/11/20 07:34 11/11/20 07:34 11/11/20 07:34 11/11/20 07:34 11/11/20 07:34 Period Temp Pulse Resp BP Sys/[place] Pulse Ox Last 24 Hr 36.6 C-37.2 C 55-75 16-18 141-197/75-87 93-97 Intake and Output 11/10/20 11/11/20 11/11/20 21:59 05:59 13:59 Intake Total 290 1290 530 Output Total 2 5 Balance 288 1285 530 Weight 113.852 kg Intake & Output: Intake & Output 11/10/20 11/11/20 11/11/20 21:59 05:59 13:59 Intake Total 290 1290 530 Output Total 2 5 Balance 288 1285 530 Weight 113.852 kg Intake: Nourishment/Supplement quantity 480 (ml) IV 50 1050 50 Sodium Chloride 0.45% 1,000 ml 1000 @ 75 mls/hr IV .[id number] [facility] Rx# :[id number] Zosyn 3.375 gm In Dextrose 5% 50 50 50 in Water 50 ml @ 100 mls/hr IV Q6H [facility]WIS Rx#:[id number] Oral 240 240 Output: # of times incontinent of urine 2 5 Other: Meal Dinner Breakfast Percent of Meal Consumed 100% 75% Feeding Ability Needs Supervision Needs Supervision Nourishment/Supplement name glucerna Urine Color Bright Yellow Bright Yellow Stool Size Moderate Small Small Stool Color Brown Brown Brown Stool Consistency Soft Soft Soft Loose Loose # Voids 1 1 # Bowel Movements 1 # of times incontinent of 1 Bowels General appearance: cooperative and no acute distress Head Head exam: Present atraumatic and normocephalic Eye Eye exam: Present EOMI and PERRL ENT ENT exam: Present mucous membranes moist, normal exam and normal external ear exam Neck Neck exam: Present normal inspection; Absent lymphadenopathy, tenderness and thyromegaly Respiratory Respiratory exam: Absent accessory muscle use, respiratory distress and wheezes Additional comments: Left lung base respiratory crackles Cardiovascular Cardiovascular exam: Present normal rate and rhythm; Absent JVD GI/Abdominal GI/Abdominal exam: Present normal bowel sounds and soft; Absent organomegaly and tenderness Rectal Rectal exam: Present deferred Extremities Exam Extremities exam: Present full ROM, normal capillary refill and normal inspection; Absent tenderness Neurological Exam Neurological exam: Present alert, CN II-XII intact and oriented X3; Absent motor sensory deficit Psychiatric Psychiatric exam: Present normal affect and normal mood; Absent anxious and depressed Skin Skin exam: Present dry and intact OBJ DATA Labs CBC & Chem 7: 11/11/20 05:37 11/11/20 05:37 Labs: Abnormal Lab Results 11/11/20 11/11/20 11/10/20 05:37 05:37 05:50 MCV Lymph # (Auto) [place] # (Auto) 0.99 H Sodium 148 H 147 H Chloride 114 H BUN 32 H 36 H Creatinine 1.4 H 1.8 H Glucose 138 H 129 H Calcium 8.4 L Total Bilirubin 1.1 H Albumin 2.8 L Albumin/Globulin Ratio 0.8 L 11/10/20 05:50 MCV 100.2 H Lymph # (Auto) 1.46 L [place] # (Auto) Sodium Chloride BUN Creatinine Glucose Calcium Total Bilirubin Albumin Albumin/Globulin Ratio Meds: Medications Acetaminophen (Acetaminophen 325 Mg Tablet) 650 mg PO Q6HP PRN PRN Reason: PAIN/FEVER > 101 Last Admin: 11/08/20 16:07 Dose: 650 mg Documented by: Albuterol/Ipratropium (Ipratropium/Albuterol 3 Ml Ampul.Neb) 3 ml NEB Q4HP PRN PRN Reason: Shortness Of Breath Amlodipine Besylate (Amlodipine 5 Mg Tablet) 10 mg PO DAILY [facility] Last Admin: 11/11/20 08:04 Dose: 10 mg Documented by: Aspirin (Aspirin 81 Mg Tab.Chew) 81 mg PO DAILY [facility] Last Admin: 11/11/20 08:04 Dose: 81 mg Documented by: Atorvastatin Calcium (Atorvastatin 40 Mg Tablet) 80 mg PO [facility] Last Admin: 11/10/20 22:28 Dose: 80 mg Documented by: Clopidogrel Bisulfate (Clopidogrel 75 Mg Tablet) 75 mg PO DAILY [facility] Last Admin: 11/11/20 08:04 Dose: 75 mg Documented by: Dextrose (Dextrose 50% 50 Ml Vial) 0 ml IV UD PRN PRN Reason: Hypoglycemia Diagnostic Test (Pha) (Accu-Chek 1 Each Strip) 1 each FS Q4H [facility] Last Admin: 11/11/20 08:10 Dose: 1 each Documented by: Docusate Sodium (Docusate Sodium 100 Mg Capsule) 100 mg PO BID [facility] Last Admin: 11/11/20 08:01 Dose: Not Given Documented by: Glucose (Dextrose 31 Gm Oral.Susp) 15 gm PO PRN PRN PRN Reason: Hypoglycemia Hydralazine HCl (Hydralazine 20 Mg/Ml Vial) 0 mg IV Q2HP PRN PRN Reason: Hypertension Magnesium Sulfate (Magnesium Sulfate) 2 gm in 50 mls @ 50 mls/hr IV UD PRN PRN Reason: Magnesium </= 1.6 Piperacillin Sod/Tazobactam (Sod 3.375 gm/ Dextrose) 50 mls @ 100 mls/hr IV Q6H [facility]; Protocol Last Infusion: 11/11/20 06:12 Dose: Infused Documented by: Potassium Chloride 40 meq/ (Dextrose) 520 mls @ 130 mls/hr IV UD PRN PRN Reason: Potassium < 3 Sodium Chloride (Sodium Chloride 0.45%) 1,000 mls @ 75 mls/hr IV .[id number] [facility] Last Admin: 11/11/20 03:34 Dose: 75 mls/hr Documented by: Insulin Human Lispro (Insulin Lispro 1 Unit/0.01 Ml Unit) 0 unit SQ Q4H [facility]; Protocol Last Admin: 11/11/20 08:10 Dose: 3 unit Documented by: Insulin Lispro Protam/Lispro Human (Insulin, 75/25 Npl/Lispro 1 Unit/0.01 Ml Unit) 25 unit SQ [facility] Last Admin: 11/10/20 22:29 Dose: 25 unit Documented by: Insulin Lispro Protam/Lispro Human (Insulin, 75/25 Npl/Lispro 1 Unit/0.01 Ml Unit) 15 unit SQ DAILY [facility] Last Admin: 11/11/20 08:11 Dose: 15 unit Documented by: Ondansetron HCl (Ondansetron 4 Mg/2 Ml Vial) 4 mg IV Q4HP PRN PRN Reason: Nausea And Vomiting Pantoprazole Sodium (Pantoprazole 40 Mg Tablet) 40 mg PO [facility] Last Admin: 11/10/20 22:28 Dose: 40 mg Documented by: Potassium Chloride (Potassium Chloride 20 Meq Tablet) 40 meq PO UD PRN PRN Reason: Potssium is 3-3.5 Potassium Chloride (Potassium Chloride 20 Meq Tablet) 40 meq PO UD PRN PRN Reason: Potassium < 3 Rivaroxaban (Rivaroxaban 15 Mg Tablet) 15 mg PO QPMCC [facility] Last Admin: 11/10/20 17:28 Dose: 15 mg Documented by: Senna (Sennosides 1 Tablet) 2 tab PO DAILYP PRN PRN Reason: Constipation Sodium Chloride (0.9 % Sodium Chloride 10 Ml Syringe) 10 ml IV Q8 [facility] Last Admin: 11/11/20 04:59 Dose: Not Given Documented by: Tamsulosin HCl (Tamsulosin 0.4 Mg Capsule) 0.8 mg PO [facility] Last Admin: 11/10/20 22:28 Dose: 0.8 mg Documented by: A/P Assessment and plan (1) Acute ischemic stroke: Status: Acute (2) Aspiration pneumonia: Status: Acute (3) Hypernatremia: Status: Acute (4) Stage 1 acute kidney injury: Status: Acute (5) 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 Qualifiers: Diabetes mellitus exterminator helper termite insulin use: with exterminator helper termite use Qualified Code(s): E11.43 - Type 2 diabetes mellitus with diabetic autonomic (poly)neuropathy; Z79.4 - alf (current) use of insulin (6) Hypertension: Status: Chronic Qualifiers: Hypertension type: essential hypertension Qualified Code(s): I10 - Essential (primary) hypertension (7) Hyperlipidemia: Status: Chronic Qualifiers: Hyperlipidemia type: mixed hyperlipidemia Qualified Code(s): E78.2 - Mixed hyperlipidemia (8) Atrial fibrillation: Status: Acute (9) GERD (gastroesophageal reflux disease): Status: Chronic Qualifiers: Esophagitis presence: without esophagitis Qualified Code(s): K21.9 - Gastro-esophageal reflux disease without esophagitis Narrative A/P Narrative: 1. Acute ischemic stroke, superior cerebellar vermis and right frontal parietal junction: Stays in inpatient med surg Continue to discuss with family regarding overall prognosis and goal of care Out of permissive HTN phase, now need tighter blood pressure control Metoprolol tartrate 12.5mg PO BID [id number] PO daily ROMERO-i/ARB contraindicated given acute kidney injury Diuretics contraindicated given acute kidney injury Continue dysphagia diet PT OT evaluation and treatment for placement planning Aspirin Plavix Statin for secondary stroke prevention 2. Aspiration pneumonia: Supplemental oxygen via nasal cannula as needed titrate to achieve oxygen saturation >=92% Blood culture no growth to date Zosyn Tylenol cbc w/ auto diff in the AM to trend WBC Dysphagia diet as per speech therapy recs. 3. Hypernatremia: Encourage oral intake 1/2NS@75cc/hr Repeat CMP in the AM to trend serum sodium level 4. Stage 1 acute kidney injury: Avoid nephrotoxic agents 1/2NS@75cc/hr Repeat CMP in the AM to trend kidney functions 5. T2DM: HgA1c Insulin 75/25 15 unit daily and 25 unit HS Correctional scale insulin AC HS Accu Chek AC HS Hypoglycemia protocol Diabetic diet 6. Essential HTN: Out of permissive HTN phase, now need tighter blood pressure control Metoprolol tartrate 12.5mg PO BID [id number] PO daily ROMERO-i/ARB contraindicated given acute kidney injury Diuretics contraindicated given acute kidney injury 7. Mixed dyslipidemia: Continue statin therapy 8. Atrial fibrillation: Metoprolol tartrate 12.5mg PO BID Xarelto 20mg PO HS for DVT/Stroke prevention 9. GERD: Protonix 40mg PO HS GI ppx: Protonix PO HS DVT ppx: Xarelto Code status: DNI DNR Prognosis: guarded Disposition: inpatient med surg Time Spent With Patient Time: Total time spent is greater than 50% in coordination of care (as documented) at patient's floor/unit and/or counseling patient: QUALITY Stroke Onset of Symptoms Date: 11/06/20 Onset of Symptoms Time: 08:00 Symptom Onset Unknown: Yes VTE Deep Vein Thrombosis/Pulmonary Embolism Present on Admission: No
[2020-11-11] MEDS: RIVAROXABAN 15 MG TABLET PO SCH (17:08)
[2020-11-11] MEDS ORDERED: DEXTROSE 31 GM ORAL.SUSP PO PRN (18:43)
[2020-11-11] MEDS ORDERED: DEXTROSE 50% 50 ML VIAL IV PRN (18:43)
[2020-11-11] MEDS: PANTOPRAZOLE 40 MG TABLET PO SCH (20:30)
[2020-11-11] MEDS: TAMSULOSIN 0.4 MG CAPSULE PO SCH (20:30)
[2020-11-11] MEDS: ATORVASTATIN 40 MG TABLET PO SCH (20:31)
[2020-11-11] MEDS ORDERED: INSULIN LISPRO 1 UNIT/0.01 ML UNIT SQ ONE (20:52)
[2020-11-11] MEDS ORDERED: METOPROLOL TARTRATE 25 MG TABLET PO SCH (21:00)
[2020-11-12] MEDS: 0.9 % SODIUM CHLORIDE 10 ML SYRINGE IV SCH ×3 (04:11→20:51)
[2020-11-12] MEDS: 0.45 % SODIUM CHLORIDE 1,000 ML IV SCH ×4 (04:11→23:40)
[2020-11-12] MEDS: PIPERACILLIN SODIUM/TAZOBACTAM 3.375 GM in DEXTROSE 5% IN WATER 50 ML IV SCH ×4 (05:39→23:40)
[2020-11-12] MEDS: INSULIN LISPRO 1 UNIT/0.01 ML UNIT SQ SCH ×4 (07:05→20:39)
[2020-11-12 07:31] LABS: Basophils # (Auto) 0.05 K/mcL (0.00-0.20); Basophils % (Auto) 0.5 % (0.0-2.0); Eosinophils # (Auto) 0.36 K/mcL (0.00-0.70); Eosinophils % (Auto) 3.8 % (0.0-7.0); Hematocrit 47.2 % (41.0-55.0); Hemoglobin 15.8 g/dL (13.5-16.5); Lymphocytes # (Auto) 1.82 K/mcL (1.50-4.80); Lymphocytes % (Auto) 19.2 % (15.0-49.0); Mean Cell Volume 96.7 fL (80.0-100.0); Mean Corpuscular HGB Conc 33.5 g/dL (31.0-36.0); Mean Platelet Volume 9.5 fL (7.4-10.4); Monocytes # (Auto) 0.78 K/mcL (0.10-0.90); Monocytes % (Auto) 8.2 % (1.0-12.0); Neutrophils % (Auto) 68.3 % (38.0-78.0); Platelet Count 204 K/mcL (140-440); RBC 4.88 M/mcL (4.50-5.90); WBC 9.5 K/mcL (4.5-11.0)
--- NOTE | 2020-11-12 07:31 | Internal Med Progress Note ---
SUBJECTIVE Subjective Patient information: Note initiated : 11/12/20 at 7:28 am Service Date, if different from initiated Date: [] Patient: Robert Caballero a 80 y/o M admitted on 11/06/20 for Slurred Speech, Left Sided Weakness. Chief Complaint: [stroke] History of present illness: Mr. Caballero is a 80 year old M Presents the ED with slurring of speech ataxia and some left-sided weakness. Last seen normal 8 this morning. Patient's history is significant for a stroke in June where he was treated at [facility] it had a atypical appearance and was concern for mass and underwent craniotomy with tissue biopsy confirming that was ischemic stroke there was no hemorrhagic stroke mentioned in any documentation. Patient is on aspirin and states has been taking it daily, 81 mg. I do not see a statin medication on board. Case was discussed with stroke neurologist in the ED who recommended admission and MRI and that patient was not a TPA candidate. Per the history of the patient he states he was walking in the kitchen and was started open the refrigerator door but is becoming increasingly weak. His helped him to the chair he started having slurring of speech. Denies any headache fever chills chest pain shortness of breath. Vision intact per patient. Reviewing charts from [facility] admission in June for stroke. 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 Case was discussed with interventional radiology at the time and felt no intervention was needed at that time - likely given the location of the stroke on that presentation. MRI today reveals acute stroke to superior cerebellar vermis. I discussed the case with Dr. Vergara who recommended DAPT (which had already been started), no immediate need for intervention, and to f/u with him outpt for further evaluation of the vertebral artery with potential intervention at that time. 11/07 Patient with slurred speech. Seen by speech therapy and placed on pured diet. 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 Discussed the case again with Dr. Vergara. MRI revealing cerebellar stroke Discussed the CTA findings with Dr. Vergara regarding superior cerebellar arteries as well as the cerebral arteries. He reiterated nothing to be done at this time other than medical therapy with dual antiplatelets and to follow-up with Dr. Vergara in the office. 11/08 Patient developed fevers last night. Chest x-ray with basilar infiltrates given his dysarthria concern that he likely aspirated. Not requiring oxygen supplementation at this time. Does have a moist cough, denies other complaints, denies shortness of breath 11/09 Other than some low blood sugars, no overnight event or new complaints. Will decrease home insulin further. Denying any coughing this morning. No shortness of breath. 11/10: No major overnight events. No new complaints. No change in goal of therapy. Hypernatremia. 11/11: No major overnight events. No new complaints. No change in goal of therapy. Hypernatremia. Afebrile overnight. 11/12: Afebrile overnight. Been on room air overnight. No change in goal of therapy. Constitutional Vitals: Vital Signs Temp Pulse Resp BP Pulse Ox 36.9 C 61 18 170/84 95 11/12/20 03:59 11/12/20 03:59 11/12/20 03:59 11/12/20 03:59 11/12/20 03:59 Period Temp Pulse Resp BP Sys/[place] Pulse Ox Last 24 Hr 36.6 C-37.2 C 60-85 16-20 145-185/80-86 95-98 Intake and Output 11/11/20 11/12/20 11/12/20 21:59 05:59 13:59 Intake Total 1820 290 Output Total 52 83 Balance 1768 207 Intake & Output: Intake & Output 11/11/20 11/12/20 11/12/20 21:59 05:59 13:59 Intake Total 1820 290 Output Total 52 83 Balance 1768 207 Intake: IV 1100 50 Sodium Chloride 0.45% 1,000 ml 1000 @ 75 mls/hr IV .[id number] [facility] Rx# :[id number] Zosyn 3.375 gm In Dextrose 5% 100 50 in Water 50 ml @ 100 mls/hr IV Q6H [facility] Rx#:[id number] Oral 720 240 Output: Void Amount 50 75 # of times incontinent of urine 2 8 Other: Meal Nourishment/Supplement Percent of Meal Consumed 100% Feeding Ability Total Assistance Nourishment/Supplement name Applesauce Urine Appearance Clear Clear Urine Color Bright Yellow Bright Yellow Urine Odor Normal Normal General appearance: cooperative and no acute distress Head Head exam: Present atraumatic and normocephalic Eye Eye exam: Present EOMI and PERRL ENT ENT exam: Present mucous membranes moist, normal exam and normal external ear exam Neck Neck exam: Present normal inspection; Absent lymphadenopathy, tenderness and thyromegaly Respiratory Respiratory exam: Absent accessory muscle use, respiratory distress and wheezes Additional comments: Respiratory crackles in the left lung base. Cardiovascular Cardiovascular exam: Present normal rate and rhythm; Absent JVD GI/Abdominal GI/Abdominal exam: Present normal bowel sounds and soft; Absent organomegaly and tenderness Rectal Rectal exam: Present deferred Extremities Exam Extremities exam: Present full ROM, normal capillary refill and normal inspection; Absent tenderness Neurological Exam Neurological exam: Present alert, CN II-XII intact and oriented X3; Absent motor sensory deficit Psychiatric Psychiatric exam: Present normal affect and normal mood; Absent anxious and depressed Skin Skin exam: Present dry and intact OBJ DATA Labs CBC & Chem 7: 11/11/20 05:37 11/11/20 05:37 Labs: Abnormal Lab Results 11/11/20 11/11/20 11/10/20 05:37 05:37 05:50 MCV Lymph # (Auto) Christian # (Auto) 0.99 H Sodium 148 H 147 H Chloride 114 H BUN 32 H 36 H Creatinine 1.4 H 1.8 H Glucose 138 H 129 H Calcium 8.4 L Total Bilirubin 1.1 H Albumin 2.8 L Albumin/Globulin Ratio 0.8 L 11/10/20 05:50 MCV 100.2 H Lymph # (Auto) 1.46 L Christian # (Auto) Sodium Chloride BUN Creatinine Glucose Calcium Total Bilirubin Albumin Albumin/Globulin Ratio Meds: Medications Acetaminophen (Acetaminophen 325 Mg Tablet) 650 mg PO Q6HP PRN PRN Reason: PAIN/FEVER > 101 Last Admin: 11/08/20 16:07 Dose: 650 mg Documented by: Albuterol/Ipratropium (Ipratropium/Albuterol 3 Ml Ampul.Neb) 3 ml NEB Q4HP PRN PRN Reason: Shortness Of Breath Amlodipine Besylate (Amlodipine 5 Mg Tablet) 10 mg PO DAILY [facility] Last Admin: 11/11/20 08:04 Dose: 10 mg Documented by: Aspirin (Aspirin 81 Mg Tab.Chew) 81 mg PO DAILY [facility] Last Admin: 11/11/20 08:04 Dose: 81 mg Documented by: Atorvastatin Calcium (Atorvastatin 40 Mg Tablet) 80 mg PO [facility] Last Admin: 11/11/20 20:31 Dose: 80 mg Documented by: Clopidogrel Bisulfate (Clopidogrel 75 Mg Tablet) 75 mg PO DAILY [facility] Last Admin: 11/11/20 08:04 Dose: 75 mg Documented by: Dextrose (Dextrose 50% 50 Ml Vial) 0 ml IV UD PRN PRN Reason: Hypoglycemia Dextrose (Dextrose 50% 50 Ml Vial) 0 ml IV UD PRN PRN Reason: Hypoglycemia Diagnostic Test (Pha) (Accu-Chek 1 Each Strip) 1 each FS [facility] Last Admin: 11/12/20 07:05 Dose: 1 each Documented by: Docusate Sodium (Docusate Sodium 100 Mg Capsule) 100 mg PO BID [facility] Last Admin: 11/11/20 20:30 Dose: 100 mg Documented by: Glucose (Dextrose 31 Gm Oral.Susp) 15 gm PO PRN PRN PRN Reason: Hypoglycemia Glucose (Dextrose 31 Gm Oral.Susp) 15 gm PO PRN PRN PRN Reason: Hypoglycemia Hydralazine HCl (Hydralazine 20 Mg/Ml Vial) 0 mg IV Q2HP PRN PRN Reason: Hypertension Last Admin: 11/11/20 16:12 Dose: 20 mg Documented by: Magnesium Sulfate (Magnesium Sulfate) 2 gm in 50 mls @ 50 mls/hr IV UD PRN PRN Reason: Magnesium </= 1.6 Piperacillin Sod/Tazobactam (Sod 3.375 gm/ Dextrose) 50 mls @ 100 mls/hr IV Q6H [facility]; Protocol Last Admin: 11/12/20 05:39 Dose: 100 mls/hr Documented by: Potassium Chloride 40 meq/ (Dextrose) 520 mls @ 130 mls/hr IV UD PRN PRN Reason: Potassium < 3 Sodium Chloride (Sodium Chloride 0.45%) 1,000 mls @ 75 mls/hr IV .[id number] [facility] Last Admin: 11/12/20 04:11 Dose: Not Given Documented by: Insulin Human Lispro (Insulin Lispro 1 Unit/0.01 Ml Unit) 0 unit SQ [facility]; Protocol Last Admin: 11/12/20 07:05 Dose: 6 units Documented by: Insulin Lispro Protam/Lispro Human (Insulin, 75/25 Npl/Lispro 1 Unit/0.01 Ml Unit) 25 unit SQ [facility] Last Admin: 11/11/20 20:31 Dose: 25 unit Documented by: Insulin Lispro Protam/Lispro Human (Insulin, 75/25 Npl/Lispro 1 Unit/0.01 Ml Unit) 15 unit SQ DAILY [facility] Last Admin: 11/11/20 08:11 Dose: 15 unit Documented by: Ondansetron HCl (Ondansetron 4 Mg/2 Ml Vial) 4 mg IV Q4HP PRN PRN Reason: Nausea And Vomiting Pantoprazole Sodium (Pantoprazole 40 Mg Tablet) 40 mg PO [facility] Last Admin: 11/11/20 20:30 Dose: 40 mg Documented by: Potassium Chloride (Potassium Chloride 20 Meq Tablet) 40 meq PO UD PRN PRN Reason: Potssium is 3-3.5 Potassium Chloride (Potassium Chloride 20 Meq Tablet) 40 meq PO UD PRN PRN Reason: Potassium < 3 Rivaroxaban (Rivaroxaban 15 Mg Tablet) 15 mg PO QPMCC [facility] Last Admin: 11/11/20 17:08 Dose: 15 mg Documented by: Senna (Sennosides 1 Tablet) 2 tab PO DAILYP PRN PRN Reason: Constipation Sodium Chloride (0.9 % Sodium Chloride 10 Ml Syringe) 10 ml IV Q8 [facility] Last Admin: 11/12/20 04:11 Dose: Not Given Documented by: Tamsulosin HCl (Tamsulosin 0.4 Mg Capsule) 0.8 mg PO [facility] Last Admin: 11/11/20 20:30 Dose: 0.8 mg Documented by: A/P Assessment and plan (1) Acute ischemic stroke: Status: Acute (2) Aspiration pneumonia: Status: Acute (3) Hypernatremia: Status: Acute (4) Stage 1 acute kidney injury: Status: Acute (5) 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 Qualifiers: 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 up operator insulin use: with terminal make up operator use Qualified Code(s): E11.43 - Type 2 diabetes mellitus with diabetic autonomic (maya y)neuropathy; Z79.4 - halfway (current) use of insulin (6) Hypertension: Status: Chronic Qualifiers: Hypertension type: essential hypertension Qualified Code(s): I10 - Essential (primary) hypertension (7) Hyperlipidemia: Status: Chronic Qualifiers: Hyperlipidemia type: mixed hyperlipidemia Qualified Code(s): E78.2 - Mixed hyperlipidemia (8) Atrial fibrillation: Status: Acute (9) GERD (gastroesophageal reflux disease): Status: Chronic Qualifiers: Esophagitis presence: without esophagitis Qualified Code(s): K21.9 - Gastro-esophageal reflux disease without esophagitis Narrative A/P Narrative: 1. Acute ischemic stroke, superior cerebellar vermis and right frontal parietal junction: Stays in inpatient med surg Continue to discuss with family regarding overall prognosis and goal of care Out of permissive HTN phase, now need tighter blood pressure control Increase Metoprolol tartrate from 12.5mg to 25mg PO BID for better blood pressure control [id number] PO daily ROMERO-i/ARB contraindicated given acute kidney injury Diuretics contraindicated given acute kidney injury Continue dysphagia diet PT OT evaluation and treatment for placement planning Aspirin Plavix Statin for secondary stroke prevention 2. Aspiration pneumonia: Supplemental oxygen via nasal cannula as needed titrate to achieve oxygen satu ration >=92% Blood culture no growth to date Zosyn Tylenol cbc w/ auto diff in the AM to trend WBC Dysphagia diet as per speech therapy recs. 3. Hypernatremia: Encourage oral intake 1/2NS@75cc/hr Repeat CMP in the AM to trend serum sodium level 4. Stage 1 acute kidney injury: Avoid nephrotoxic agents 1/2NS@75cc/hr Repeat CMP in the AM to trend kidney functions 5. T2DM: HgA1c Insulin 75/25 15 unit daily and 25 unit HS Correctional scale insulin AC HS Accu Chek AC HS Hypoglycemia protocol Diabetic diet 6. Essential HTN: Out of permissive HTN phase, now need tighter blood pressure control Increase Metoprolol tartrate from 12.5mg to 25mg PO BID for better blood pressure control [id number] PO daily ROMERO-i/ARB contraindicated given acute kidney injury Diuretics contraindicated given acute kidney injury 7. Mixed dyslipidemia: Continue statin therapy 8. Atrial fibrillation: Increase Metoprolol tartrate from 12.5mg to 25mg PO BID Xarelto 20mg PO HS for DVT/Stroke prevention 9. GERD: Protonix 40mg PO HS GI ppx: Protonix PO HS DVT ppx: Xarelto Code status: DNI DNR Prognosis: guarded Disposition: inpatient med surg Time Spent With Patient Time: Total time spent is greater than 50% in coordination of care (as documented) at patient's floor/unit and/or counseling patient: QUALITY Stroke Onset of Symptoms Date: 11/06/20 Onset of Symptoms Time: 08:00 Symptom Onset Unknown: Yes VTE Deep Vein Thrombosis/Pulmonary Embolism Present on Admission: No
[2020-11-12] MEDS: hydrALAZINE 20 MG/ML VIAL IV PRN (08:03)
[2020-11-12] MEDS: amLODIPine 5 MG TABLET PO SCH (08:04)
[2020-11-12] MEDS: CLOPIDOGREL 75 MG TABLET PO SCH (08:04)
[2020-11-12] MEDS: ASPIRIN 81 MG TAB.CHEW PO SCH (08:04)
[2020-11-12] MEDS: DOCUSATE SODIUM 100 MG CAPSULE PO SCH ×2 (08:05→20:28)
[2020-11-12] MEDS: METOPROLOL TARTRATE 25 MG TABLET PO SCH ×2 (08:05→20:29)
[2020-11-12 08:08] LABS: ALT/SGPT 16 U/L (<40); AST/SGOT 25 U/L (<40); Albumin 2.6 gm/dL (3.2-5.2); Albumin/Globulin Ratio 0.7 (1.0-2.3); Alkaline Phosphatase 51 U/L (39-117); Bilirubin,Total 0.8 mg/dL (0.1-1.0); Blood Urea Nitrogen 29 mg/dL (8-23); Calcium 8.1 mg/dL (8.6-10.4); Carbon Dioxide 25 mmol/L (22-30); Chloride 108 mmol/L (96-108); Globulin 3.8 gm/dL (2.2-3.7); Glomerular Filtration Rate 43; Glucose 130 mg/dL (70-105)
[2020-11-12] MEDS: INSULIN, 75/25 NPL/LISPRO 1 UNIT/0.01 ML UNIT SQ SCH ×2 (08:13→20:39)
[2020-11-12] MEDS: RIVAROXABAN 15 MG TABLET PO SCH (17:27)
[2020-11-12] MEDS: ATORVASTATIN 40 MG TABLET PO SCH (20:28)
[2020-11-12] MEDS: TAMSULOSIN 0.4 MG CAPSULE PO SCH (20:28)
[2020-11-12] MEDS: PANTOPRAZOLE 40 MG TABLET PO SCH (20:29)
[2020-11-13] MEDS: 0.9 % SODIUM CHLORIDE 10 ML SYRINGE IV SCH ×3 (05:55→21:02)
[2020-11-13] MEDS: 0.45 % SODIUM CHLORIDE 1,000 ML IV SCH ×3 (06:05→23:35)
[2020-11-13] MEDS: PIPERACILLIN SODIUM/TAZOBACTAM 3.375 GM in DEXTROSE 5% IN WATER 50 ML IV SCH (06:10)
[2020-11-13 06:51] LABS: Basophils # (Auto) 0.04 K/mcL (0.00-0.20); Basophils % (Auto) 0.4 % (0.0-2.0); Eosinophils # (Auto) 0.43 K/mcL (0.00-0.70); Eosinophils % (Auto) 4.4 % (0.0-7.0); Hematocrit 43.7 % (41.0-55.0); Hemoglobin 14.3 g/dL (13.5-16.5); Lymphocytes # (Auto) 1.96 K/mcL (1.50-4.80); Lymphocytes % (Auto) 20.2 % (15.0-49.0); Mean Cell Volume 99.5 fL (80.0-100.0); Mean Corpuscular HGB Conc 32.7 g/dL (31.0-36.0); Mean Platelet Volume 9.4 fL (7.4-10.4); Monocytes % (Auto) 8.2 % (1.0-12.0); Neutrophils % (Auto) 66.8 % (38.0-78.0); Platelet Count 207 K/mcL (140-440); RBC 4.39 M/mcL (4.50-5.90); Red Cell Distribution Width 12.9 % (11.5-14.5); WBC 9.7 K/mcL (4.5-11.0)
[2020-11-13 07:02] LABS: ALT/SGPT 16 U/L (<40); AST/SGOT 27 U/L (<40); Albumin 2.6 gm/dL (3.2-5.2); Albumin/Globulin Ratio 0.7 (1.0-2.3); Alkaline Phosphatase 50 U/L (39-117); Bilirubin,Total 0.7 mg/dL (0.1-1.0); Blood Urea Nitrogen 38 mg/dL (8-23); Carbon Dioxide 23 mmol/L (22-30); Chloride 106 mmol/L (96-108); Globulin 3.5 gm/dL (2.2-3.7); Glomerular Filtration Rate 25; Glucose 62 mg/dL (70-105)
[2020-11-13] MEDS: INSULIN LISPRO 1 UNIT/0.01 ML UNIT SQ SCH ×4 (07:11→21:02)
[2020-11-13] MEDS: METOPROLOL TARTRATE 25 MG TABLET PO SCH ×2 (08:21→21:02)
[2020-11-13] MEDS: amLODIPine 5 MG TABLET PO SCH (08:21)
[2020-11-13] MEDS: DOCUSATE SODIUM 100 MG CAPSULE PO SCH ×2 (08:21→21:02)
[2020-11-13] MEDS: ASPIRIN 81 MG TAB.CHEW PO SCH (08:22)
[2020-11-13] MEDS: CLOPIDOGREL 75 MG TABLET PO SCH (08:22)
[2020-11-13] MEDS ORDERED: LEVOFLOXACIN 750 MG TABLET PO SCH (09:00)
[2020-11-13] MEDS: INSULIN, 75/25 NPL/LISPRO 1 UNIT/0.01 ML UNIT SQ SCH ×2 (09:04→21:02)
--- NOTE | 2020-11-13 09:19 | Internal Med Progress Note ---
SUBJECTIVE Subjective Patient information: Note initiated : 11/13/20 at 9:14 am Service Date, if different from initiated Date: [] Patient: Robert Caballero a 80 y/o M admitted on 11/06/20 for Slurred Speech, Left Sided Weakness. Chief Complaint: [stroke] History of present illness: Mr. Caballero is a 80 year old M Presents the ED with slurring of speech ataxia and some left-sided weakness. Last seen normal 8 this morning. Patient's history is significant for a stroke in June where he was treated at [facility] it had a atypical appearance and was concern for mass and underwent craniotomy with tissue biopsy confirming that was ischemic stroke there was no hemorrhagic stroke mentioned in any documentation. Patient is on aspirin and states has been taking it daily, 81 mg. I do not see a statin medication on board. Case was discussed with stroke neurologist in the ED who recommended admission and MRI and that patient was not a TPA candidate. Per the history of the patient he states he was walking in the kitchen and was started open the refrigerator door but is becoming increasingly weak. His helped him to the chair he started having slurring of speech. Denies any headache fever chills chest pain shortness of breath. Vision intact per patient. Reviewing charts from [facility] admission in June for stroke. 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 Case was discussed with interventional radiology at the time and felt no intervention was needed at that time - likely given the location of the stroke on that presentation. MRI today reveals acute stroke to superior cerebellar vermis. I discussed the case with Dr. Vergara who recommended DAPT (which had already been started), no immediate need for intervention, and to f/u with him outpt for further evaluation of the vertebral artery with potential intervention at that time. 11/07 Patient with slurred speech. Seen by speech therapy and placed on pured diet. 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 Discussed the case again with Dr. Vergara. MRI revealing cerebellar stroke Discussed the CTA findings with Dr. Vergara regarding superior cerebellar arteries as well as the cerebral arteries. He reiterated nothing to be done at this time other than medical therapy with dual antiplatelets and to follow-up with Dr. Vergara in the office. 11/08 Patient developed fevers last night. Chest x-ray with basilar infiltrates given his dysarthria concern that he likely aspirated. Not requiring oxygen supplementation at this time. Does have a moist cough, denies other complaints, denies shortness of breath 11/09 Other than some low blood sugars, no overnight event or new complaints. Will decrease home insulin further. Denying any coughing this morning. No shortness of breath. 11/10: No major overnight events. No new complaints. No change in goal of therapy. Hypernatremia. 11/11: No major overnight events. No new complaints. No change in goal of therapy. Hypernatremia. Afebrile overnight. 11/12: Afebrile overnight. Been on room air overnight. No change in goal of therapy. 11/13: Afebrile overnight. Been on room air overnight. Serum Cr increased from 1.5 to 2.4. Fasting glucose 77 this morning. Denies fever, chills, or sweating. Denies SOB or cough or wheezing. c/o mild occipital headache. Denies any nausea, vomiting, diarrhea, or constipation. Constitutional Vitals: Vital Signs Temp Pulse Resp BP Pulse Ox 36.7 C 69 18 145/68 94 11/13/20 08:00 11/13/20 08:00 11/13/20 08:00 11/13/20 08:00 11/13/20 08:00 Period Temp Pulse Resp BP Sys/[place] Pulse Ox Last 24 Hr 36.5 C-37.1 C 61-69 16-18 145-165/68-84 94-96 Intake and Output 11/12/20 11/13/20 11/13/20 21:59 05:59 13:59 Intake Total 410 1050 50 Output Total 3 7 1 Balance 407 1043 49 Weight 116.483 kg Intake & Output: Intake & Output 11/12/20 11/13/20 11/13/20 21:59 05:59 13:59 Intake Total 410 1050 50 Output Total 3 7 1 Balance 407 1043 49 Weight 116.483 kg Intake: IV 50 1050 50 Sodium Chloride 0.45% 1,000 ml 1000 @ 75 mls/hr IV .[id number] [facility] Rx# :[id number] Zosyn 3.375 gm In Dextrose 5% 50 50 50 in Water 50 ml @ 100 mls/hr IV Q6H [facility] Rx#:[id number] Oral 360 Output: # of times incontinent of urine 3 7 1 Other: Meal Breakfast Percent of Meal Consumed 100% Feeding Ability Needs Supervision General appearance: cooperative and no acute distress Head Head exam: Present atraumatic and normocephalic Eye Eye exam: Present EOMI and PERRL ENT ENT exam: Present mucous membranes moist, normal exam and normal external ear exam Neck Neck exam: Present normal inspection; Absent lymphadenopathy, tenderness and thyromegaly Respiratory Respiratory exam: Absent accessory muscle use, respiratory distress and wheezes Cardiovascular Cardiovascular exam: Present normal rate and rhythm; Absent JVD GI/Abdominal GI/Abdominal exam: Present normal bowel sounds and soft; Absent organomegaly and tenderness Rectal Rectal exam: Present deferred Extremities Exam Extremities exam: Present full ROM, normal capillary refill and normal inspection; Absent tenderness Neurological Exam Neurological exam: Present alert, CN II-XII intact and oriented X3; Absent motor sensory deficit Psychiatric Psychiatric exam: Present normal affect and normal mood; Absent anxious and depressed Skin Skin exam: Present dry and intact OBJ DATA Labs CBC & Chem 7: 11/13/20 04:56 11/13/20 04:56 Labs: Abnormal Lab Results 11/13/20 11/13/20 11/12/20 04:56 04:56 05:20 RBC 4.39 L [place] # (Auto) Sodium Chloride BUN 38 H 29 H Creatinine 2.4 H 1.5 H Glucose 62 L 130 H Calcium 8.0 L 8.1 L Albumin 2.6 L 2.6 L Globulin 3.8 H Albumin/Globulin Ratio 0.7 L 0.7 L 11/11/20 11/11/20 05:37 05:37 RBC [place] # (Auto) 0.99 H Sodium 148 H Chloride 114 H BUN 32 H Creatinine 1.4 H Glucose 138 H Calcium Albumin 2.8 L Globulin Albumin/Globulin Ratio 0.8 L Meds: Medications Acetaminophen (Acetaminophen 325 Mg Tablet) 650 mg PO Q6HP PRN PRN Reason: PAIN/FEVER > 101 Last Admin: 11/08/20 16:07 Dose: 650 mg Documented by: Albuterol/Ipratropium (Ipratropium/Albuterol 3 Ml Ampul.Neb) 3 ml NEB Q4HP PRN PRN Reason: Shortness Of Breath Amlodipine Besylate (Amlodipine 5 Mg Tablet) 10 mg PO DAILY [facility] Last Admin: 11/13/20 08:21 Dose: 10 mg Documented by: Aspirin (Aspirin 81 Mg Tab.Chew) 81 mg PO DAILY [facility] Last Admin: 11/13/20 08:22 Dose: 81 mg Documented by: Atorvastatin Calcium (Atorvastatin 40 Mg Tablet) 80 mg PO [facility] Last Admin: 11/12/20 20:28 Dose: 80 mg Documented by: Clopidogrel Bisulfate (Clopidogrel 75 Mg Tablet) 75 mg PO DAILY [facility] Last Admin: 11/13/20 08:22 Dose: 75 mg Documented by: Dextrose (Dextrose 50% 50 Ml Vial) 0 ml IV UD PRN PRN Reason: Hypoglycemia Dextrose (Dextrose 50% 50 Ml Vial) 0 ml IV UD PRN PRN Reason: Hypoglycemia Diagnostic Test (Pha) (Accu-Chek 1 Each Strip) 1 each FS [facility] Last Admin: 11/13/20 07:11 Dose: 1 each Documented by: Docusate Sodium (Docusate Sodium 100 Mg Capsule) 100 mg PO BID [facility] Last Admin: 11/13/20 08:21 Dose: 100 mg Documented by: Glucose (Dextrose 31 Gm Oral.Susp) 15 gm PO PRN PRN PRN Reason: Hypoglycemia Glucose (Dextrose 31 Gm Oral.Susp) 15 gm PO PRN PRN PRN Reason: Hypoglycemia Hydralazine HCl (Hydralazine 20 Mg/Ml Vial) 10 mg IV Q4-6HP PRN PRN Reason: Hypertension Last Admin: 11/12/20 08:03 Dose: 10 mg Documented by: Magnesium Sulfate (Magnesium Sulfate) 2 gm in 50 mls @ 50 mls/hr IV UD PRN PRN Reason: Magnesium </= 1.6 Potassium Chloride 40 meq/ (Dextrose) 520 mls @ 130 mls/hr IV UD PRN PRN Reason: Potassium < 3 Insulin Human Lispro (Insulin Lispro 1 Unit/0.01 Ml Unit) 0 unit SQ [facility]; Protocol Last Admin: 11/13/20 07:11 Dose: Not Given Documented by: Insulin Lispro Protam/Lispro Human (Insulin, 75/25 Npl/Lispro 1 Unit/0.01 Ml Unit) 25 unit SQ [facility] Last Admin: 11/12/20 20:39 Dose: 25 unit Documented by: Insulin Lispro Protam/Lispro Human (Insulin, 75/25 Npl/Lispro 1 Unit/0.01 Ml Unit) 15 unit SQ DAILY [facility] Last Admin: 11/13/20 09:04 Dose: Not Given Documented by: Levofloxacin (Levofloxacin 750 Mg Tablet) 750 mg PO Q48H [facility]; Protocol Metoprolol Tartrate (Metoprolol Tartrate 25 Mg Tablet) 25 mg PO BID [facility] Last Admin: 11/13/20 08:21 Dose: 25 mg Documented by: Ondansetron HCl (Ondansetron 4 Mg/2 Ml Vial) 4 mg IV Q4HP PRN PRN Reason: Nausea And Vomiting Pantoprazole Sodium (Pantoprazole 40 Mg Tablet) 40 mg PO [facility] Last Admin: 11/12/20 20:29 Dose: 40 mg Documented by: Potassium Chloride (Potassium Chloride 20 Meq Tablet) 40 meq PO UD PRN PRN Reason: Potssium is 3-3.5 Potassium Chloride (Potassium Chloride 20 Meq Tablet) 40 meq PO UD PRN PRN Reason: Potassium < 3 Rivaroxaban (Rivaroxaban 15 Mg Tablet) 15 mg PO QPMCC [facility] Last Admin: 11/12/20 17:27 Dose: 15 mg Documented by: Senna (Sennosides 1 Tablet) 2 tab PO DAILYP PRN PRN Reason: Constipation Sodium Chloride (0.9 % Sodium Chloride 10 Ml Syringe) 10 ml IV Q8 [facility] Last Admin: 11/13/20 05:55 Dose: Not Given Documented by: Tamsulosin HCl (Tamsulosin 0.4 Mg Capsule) 0.8 mg PO [facility] Last Admin: 11/12/20 20:28 Dose: 0.8 mg Documented by: A/P Assessment and plan (1) Acute ischemic stroke: Status: Acute (2) Aspiration pneumonia: Status: Acute (3) Hypernatremia: Status: Acute (4) Stage 1 acute kidney injury: Status: Acute (5) 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 Qualifiers: Diabetes mellitus joint terminal attack controller insulin use: with joint terminal attack controller use Qualified Code(s): E11.43 - Type 2 diabetes mellitus with diabetic autonomic (poly)neuropathy; Z79.4 - long-term (current) use of insulin (6) Hypertension: Status: Chronic Qualifiers: Hypertension type: essential hypertension Qualified Code(s): I10 - Essential (primary) hypertension (7) Hyperlipidemia: Status: Chronic Qualifiers: Hyperlipidemia type: mixed hyperlipidemia Qualified Code(s): E78.2 - Mixed hyperlipidemia (8) Atrial fibrillation: Status: Acute (9) GERD (gastroesophageal reflux disease): Status: Chronic Qualifiers: Esophagitis presence: without esophagitis Qualified Code(s): K21.9 - Gastro-esophageal reflux disease without esophagitis Narrative A/P Narrative: 1. Acute ischemic stroke, superior cerebellar vermis and right frontal parietal junction: Stays in inpatient med surg Continue to discuss with family regarding overall prognosis and goal of care Out of permissive HTN phase, now need tighter blood pressure control Metoprolol [id number] PO BID [id number] PO daily ROMERO-i/ARB contraindicated given acute kidney injury Diuretics contraindicated given acute kidney injury Continue dysphagia diet PT OT evaluation and treatment for placement planning Aspirin Plavix Statin for secondary stroke prevention 2. Aspiration pneumonia: Supplemental oxygen via nasal cannula as needed titrate to achieve oxygen saturation >=92% Blood culture no growth to date Switch from Zosyn IV to Levaquin PO Tylenol cbc w/ auto diff in the AM to trend WBC Dysphagia diet as per speech therapy recs. 3. Hypernatremia: RESOLVED Encourage oral intake 1/2NS@75cc/hr Repeat CMP in the AM to trend serum sodium level 4. Stage 1 acute kidney injury: Avoid nephrotoxic agents 1/2NS@75cc/hr Repeat CMP in the AM to trend kidney functions 5. T2DM: HgA1c Insulin 75/25 15 unit daily and 25 unit HS Correctional scale insulin AC HS Accu Chek AC HS Hypoglycemia protocol Diabetic diet 6. Essential HTN: Out of permissive HTN phase, now need tighter blood pressure control Metoprolol [id number] PO BID [id number] PO daily ROMERO-i/ARB contraindicated given acute kidney injury Diuretics contraindicated given acute kidney injury 7. Mixed dyslipidemia: Continue statin therapy 8. Atrial fibrillation: Metoprolol [id number] PO BID Xarelto 20mg PO HS for DVT/Stroke prevention 9. GERD: Protonix 40mg PO HS GI ppx: Protonix PO HS DVT ppx: Xarelto Code status: DNI DNR Prognosis: Stable Disposition: inpatient med surg Time Spent With Patient Time: Total time spent is greater than 50% in coordination of care (as documented) at patient's floor/unit and/or counseling patient: Total time spent with greater than 50% in coordination of care (as documented) at patient's floor/unit and/or counseling patient:: 15 - 24 minutes QUALITY Stroke Onset of Symptoms Date: 11/06/20 Onset of Symptoms Time: 08:00 Symptom Onset Unknown: Yes VTE Deep Vein Thrombosis/Pulmonary Embolism Present on Admission: No
[2020-11-13] MEDS ORDERED: PIPERACILLIN SODIUM/TAZOBACTAM 2.25 GM in DEXTROSE 5% IN WATER 50 ML IV SCH (12:00)
[2020-11-13] MEDS: RIVAROXABAN 15 MG TABLET PO SCH (17:08)
[2020-11-13] MEDS: ATORVASTATIN 40 MG TABLET PO SCH (21:01)
[2020-11-13] MEDS: TAMSULOSIN 0.4 MG CAPSULE PO SCH (21:01)
[2020-11-13] MEDS: PANTOPRAZOLE 40 MG TABLET PO SCH (21:02)
[2020-11-14] MEDS: 0.9 % SODIUM CHLORIDE 10 ML SYRINGE IV SCH ×3 (05:22→21:09)
[2020-11-14] MEDS: INSULIN LISPRO 1 UNIT/0.01 ML UNIT SQ SCH ×4 (06:58→21:08)
[2020-11-14] MEDS: amLODIPine 5 MG TABLET PO SCH (08:06)
[2020-11-14] MEDS: METOPROLOL TARTRATE 25 MG TABLET PO SCH ×2 (08:06→20:49)
[2020-11-14] MEDS: ASPIRIN 81 MG TAB.CHEW PO SCH (08:06)
[2020-11-14] MEDS: CLOPIDOGREL 75 MG TABLET PO SCH (08:06)
[2020-11-14] MEDS: DOCUSATE SODIUM 100 MG CAPSULE PO SCH ×2 (08:09→21:09)
[2020-11-14 09:26] LABS: Basophils # (Auto) 0.06 K/mcL (0.00-0.20); Basophils % (Auto) 0.6 % (0.0-2.0); Eosinophils # (Auto) 0.36 K/mcL (0.00-0.70); Eosinophils % (Auto) 3.7 % (0.0-7.0); Hematocrit 43.3 % (41.0-55.0); Hemoglobin 14.3 g/dL (13.5-16.5); Lymphocytes % (Auto) 16.2 % (15.0-49.0); Mean Cell Volume 98.6 fL (80.0-100.0); Monocytes # (Auto) 0.83 K/mcL (0.10-0.90); Monocytes % (Auto) 8.4 % (1.0-12.0); Neutrophils % (Auto) 71.1 % (38.0-78.0); Platelet Count 216 K/mcL (140-440); RBC 4.39 M/mcL (4.50-5.90); Red Cell Distribution Width 12.8 % (11.5-14.5); WBC 9.9 K/mcL (4.5-11.0)
[2020-11-14] MEDS: INSULIN, 75/25 NPL/LISPRO 1 UNIT/0.01 ML UNIT SQ SCH ×2 (09:42→21:08)
[2020-11-14 09:51] LABS: ALT/SGPT 18 U/L (<40); AST/SGOT 29 U/L (<40); Albumin 2.7 gm/dL (3.2-5.2); Albumin/Globulin Ratio 0.7 (1.0-2.3); Alkaline Phosphatase 57 U/L (39-117); Bilirubin,Direct 0.3 mg/dL (<0.3); Bilirubin,Total 0.7 mg/dL (0.1-1.0); Blood Urea Nitrogen 44 mg/dL (8-23); Calcium 8.1 mg/dL (8.6-10.4); Carbon Dioxide 21 mmol/L (22-30); Chloride 106 mmol/L (96-108); Globulin 3.7 gm/dL (2.2-3.7); Glomerular Filtration Rate 21; Glucose 105 mg/dL (70-105); Lactate Dehydrogenase 375 U/L (135-225); Phosphorous 3.9 mg/dL (2.5-4.5); Triglycerides 73 mg/dL (<150); Uric Acid 6.1 mg/dL (2.5-8.0)
--- NOTE | 2020-11-14 10:33 | Internal Med Progress Note ---
SUBJECTIVE Subjective Patient information: Note initiated : 11/14/20 at 10:30 am Service Date, if different from initiated Date: [] Patient: Robert Caballero a 80 y/o M admitted on 11/06/20 for Slurred Speech, Left Sided Weakness. Chief Complaint: [] Interval history: Mr. Caballero is a 80 year old M Presents the ED with slurring of speech ataxia and some left-sided weakness. Last seen normal 8 this morning. Patient's history is significant for a stroke in June where he was treated at [facility] it had a atypical appearance and was concern for mass and underwent craniotomy with tissue biopsy confirming that was ischemic stroke there was no hemorrhagic stroke mentioned in any documentation. Patient is on aspirin and states has been taking it daily, 81 mg. I do not see a statin medication on board. Case was discussed with stroke neurologist in the ED who recommended admission and MRI and that patient was not a TPA candidate. Per the history of the patient he states he was walking in the kitchen and was started open the refrigerator door but is becoming increasingly weak. His helped him to the chair he started having slurring of speech. Denies any headache fever chills chest pain shortness of breath. Vision intact per patient. Reviewing charts from [facility] admission in June for stroke. 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 Case was discussed with interventional radiology at the time and felt no intervention was needed at that time - likely given the location of the stroke on that presentation. MRI today reveals acute stroke to superior cerebellar vermis. I discussed the case with Dr. Vergara who recommended DAPT (which had already been started), no immediate need for intervention, and to f/u with him outpt for further evaluation of the vertebral artery with potential intervention at that time. 11/07 Patient with slurred speech. Seen by speech therapy and placed on pured diet. 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 Discussed the case again with Dr. Vergara. MRI revealing cerebellar stroke Discussed the CTA findings with Dr. Vergara regarding superior cerebellar arteries as well as the cerebral arteries. He reiterated nothing to be done at this time other than medical therapy with dual antiplatelets and to follow-up with Dr. Vergara in the office. 11/08 Patient developed fevers last night. Chest x-ray with basilar infiltrates given his dysarthria concern that he likely aspirated. Not requiring oxygen supplementation at this time. Does have a moist cough, denies other complaints, denies shortness of breath 11/09 Other than some low blood sugars, no overnight event or new complaints. Will decrease home insulin further. Denying any coughing this morning. No shortness of breath. 11/10: No major overnight events. No new complaints. No change in goal of therapy. Hypernatremia. 11/11: No major overnight events. No new complaints. No change in goal of therapy. Hypernatremia. Afebrile overnight. 11/12: Afebrile overnight. Been on room air overnight. No change in goal of therapy. 11/13: Afebrile overnight. Been on room air overnight. Serum Cr increased from 1.5 to 2.4. Fasting glucose 77 this morning. Denies fever, chills, or sweating. Denies SOB or cough or wheezing. c/o mild occipital headache. Denies any nausea, vomiting, diarrhea, or constipation. 11/14-patient seen in room. Worsening creatinine from 1.5-2.7. Nephrology cons ulted. Renal ultrasound ordered. Antibiotic discontinued. No fever chills, per nursing staff intermittent aspiration noted. Case management coordinating transfer to SNF once clinically improved. Currently on level 5 minced diet/thick liquids, remains intermittently confused/weak necessitating post discharge rehab transition Constitutional Vitals: Vital Signs Temp Pulse Resp BP Pulse Ox 98.4 F 68 20 172/87 96 11/14/20 07:59 11/14/20 07:59 11/14/20 07:59 11/14/20 07:59 11/14/20 07:59 Period Temp Pulse Resp BP Sys/[place] Pulse Ox Last 24 Hr 97.2 F-98.7 F 67-72 20-20 151-185/65-87 91-99 Intake and Output 11/13/20 11/14/20 11/14/20 21:59 05:59 13:59 Intake Total 1050 220 Output Total 7 2 1 Balance -7 1048 219 Weight 118.524 kg Intimately confused with minimal anxiety Nonlabored breathing on room air Nontender nondistended abdomen Intake & Output: Intake & Output 0511/14/20 11/14/20 21:59 05:59 13:59 Intake Total 1050 220 Output Total 7 2 1 Balance -7 1048 219 Weight 118.524 kg Intake: IV 1000 Sodium Chloride 0.45% 1,000 ml 1000 @ 75 mls/hr IV .[id number] [facility] Rx# :[id number] Oral 50 220 Output: # of times incontinent of urine 7 2 1 Other: Meal Breakfast Percent of Meal Consumed 75% Feeding Ability Needs Supervision Urine Appearance Clear Urine Color Bright Yellow Urine Odor Normal Stool Size Moderate Stool Color Brown Stool Consistency Soft Formed # of times incontinent of 1 Bowels OBJ DATA Labs CBC & Chem 7: 11/14/20 08:53 11/14/20 08:53 Labs: Abnormal Lab Results 11/14/20 11/14/20 11/13/20 08:53 08:53 04:56 RBC 4.39 L Carbon Dioxide 21 L BUN 44 H 38 H Creatinine 2.7 H 2.4 H Glucose 62 L Calcium 8.1 L 8.0 L Direct Bilirubin 0.3 H GGT 96 H Lactate Dehydrogenase 375 H Albumin 2.7 L 2.6 L Globulin Albumin/Globulin Ratio 0.7 L 0.7 L 11/13/20 11/12/20 04:56 05:20 RBC 4.39 L Carbon Dioxide BUN 29 H Creatinine 1.5 H Glucose 130 H Calcium 8.1 L Direct Bilirubin GGT Lactate Dehydrogenase Albumin 2.6 L Globulin 3.8 H Albumin/Globulin Ratio 0.7 L Meds: Medications Acetaminophen (Acetaminophen 325 Mg Tablet) 650 mg PO Q6HP PRN PRN Reason: PAIN/FEVER > 101 Last Admin: 11/08/20 16:07 Dose: 650 mg Documented by: Albuterol/Ipratropium (Ipratropium/Albuterol 3 Ml Ampul.Neb) 3 ml NEB Q4HP PRN PRN Reason: Shortness Of Breath Amlodipine Besylate (Amlodipine 5 Mg Tablet) 10 mg PO DAILY [facility] Last Admin: 11/14/20 08:06 Dose: 10 mg Documented by: Aspirin (Aspirin 81 Mg Tab.Chew) 81 mg PO DAILY [facility] Last Admin: 11/14/20 08:06 Dose: 81 mg Documented by: Atorvastatin Calcium (Atorvastatin 40 Mg Tablet) 80 mg PO [facility] Last Admin: 11/13/20 21:01 Dose: 80 mg Documented by: Clopidogrel Bisulfate (Clopidogrel 75 Mg Tablet) 75 mg PO DAILY [facility] Last Admin: 11/14/20 08:06 Dose: 75 mg Documented by: Dextrose (Dextrose 50% 50 Ml Vial) 0 ml IV UD PRN PRN Reason: Hypoglycemia Dextrose (Dextrose 50% 50 Ml Vial) 0 ml IV UD PRN PRN Reason: Hypoglycemia Diagnostic Test (Pha) (Accu-Chek 1 Each Strip) 1 each FS [facility] Last Admin: 11/14/20 06:58 Dose: 1 each Documented by: Docusate Sodium (Docusate Sodium 100 Mg Capsule) 100 mg PO BID [facility] Last Admin: 11/14/20 08:09 Dose: Not Given Documented by: Glucose (Dextrose 31 Gm Oral.Susp) 15 gm PO PRN PRN PRN Reason: Hypoglycemia Glucose (Dextrose 31 Gm Oral.Susp) 15 gm PO PRN PRN PRN Reason: Hypoglycemia Hydralazine HCl (Hydralazine 20 Mg/Ml Vial) 10 mg IV Q4-6HP PRN PRN Reason: Hypertension Last Admin: 11/12/20 08:03 Dose: 10 mg Documented by: Magnesium Sulfate (Magnesium Sulfate) 2 gm in 50 mls @ 50 mls/hr IV UD PRN PRN Reason: Magnesium </= 1.6 Potassium Chloride 40 meq/ (Dextrose) 520 mls @ 130 mls/hr IV UD PRN PRN Reason: Potassium < 3 Sodium Chloride (Sodium Chloride 0.45%) 1,000 mls @ 75 mls/hr IV .[id number] [facility] Last Admin: 11/13/20 23:35 Dose: 75 mls/hr Documented by: Insulin Human Lispro (Insulin Lispro 1 Unit/0.01 Ml Unit) 0 unit SQ [facility]; Protocol Last Admin: 11/14/20 06:58 Dose: Not Given Documented by: Insulin Lispro Protam/Lispro Human (Insulin, 75/25 Npl/Lispro 1 Unit/0.01 Ml U nit) 25 unit SQ [facility] Last Admin: 11/13/20 21:02 Dose: 25 unit Documented by: Insulin Lispro Protam/Lispro Human (Insulin, 75/25 Npl/Lispro 1 Unit/0.01 Ml Unit) 15 unit SQ DAILY [facility] Last Admin: 11/14/20 09:42 Dose: Not Given Documented by: Metoprolol Tartrate (Metoprolol Tartrate 25 Mg Tablet) 25 mg PO BID [facility] Last Admin: 11/14/20 08:06 Dose: 25 mg Documented by: Ondansetron HCl (Ondansetron 4 Mg/2 Ml Vial) 4 mg IV Q4HP PRN PRN Reason: Nausea And Vomiting Pantoprazole Sodium (Pantoprazole 40 Mg Tablet) 40 mg PO HS [facility] Last Admin: 11/13/20 21:02 Dose: 40 mg Documented by: Potassium Chloride (Potassium Chloride 20 Meq Tablet) 40 meq PO UD PRN PRN Reason: Potssium is 3-3.5 Potassium Chloride (Potassium Chloride 20 Meq Tablet) 40 meq PO UD PRN PRN Reason: Potassium < 3 Rivaroxaban (Rivaroxaban 15 Mg Tablet) 15 mg PO QPMCC [facility] Last Admin: 11/13/20 17:08 Dose: 15 mg Documented by: Senna (Sennosides 1 Tablet) 2 tab PO DAILYP PRN PRN Reason: Constipation Sodium Chloride (0.9 % Sodium Chloride 10 Ml Syringe) 10 ml IV Q8 [facility] Last Admin: 11/14/20 05:22 Dose: Not Given Documented by: Tamsulosin HCl (Tamsulosin 0.4 Mg Capsule) 0.8 mg PO [facility] Last Admin: 11/13/20 21:01 Dose: 0.8 mg Documented by: A/P Narrative A/P Narrative: 1. Acute ischemic stroke, superior cerebellar vermis and right frontal parietal junction: On dual antiplatelet/dysphagia diet/statin/therapies as indicated. Continue to discuss with family regarding overall prognosis and goal of care 2. Aspiration pneumonia: DC antibiotics, continue level 5 minced diet/thick l iquids per ST/upright positioning and aspiration precautions. 3.-Hypertension continue metoprolol/amlodipine, suboptimally controlled 4. DARI creatinine uptrending from 1.5-2.7. Renal ultrasound/nephrology consult: 5. T2DM: Basal prandial insulin/CC diet 6. Atrial fibrillation: Rate controlled on Metoprolol [id number] PO BID Xarelto 20mg PO HS for DVT/Stroke prevention Plan * Nephrology consult/renal ultrasound * Continue aggressive postop rehab * DC antibiotics * Hypertension management * Pre-existing medical condition management as above * Discharge planning per case management likely SNF Time Spent With Patient Time: Total time spent is greater than 50% in coordination of care (as documented) at patient's floor/unit and/or counseling patient: QUALITY Stroke Onset of Symptoms Date: 11/06/20 Onset of Symptoms Time: 08:00 Symptom Onset Unknown: Yes VTE Deep Vein Thrombosis/Pulmonary Embolism Present on Admission: No
[2020-11-14] MEDS: 0.45 % SODIUM CHLORIDE 1,000 ML IV SCH (11:20)
--- NOTE | 2020-11-14 12:32 | Ultrasound Report ---
CLINICAL INFORMATION: DARI COMPARISON: Noncontrast abdomen and pelvic CT 08/10/2008 FINDINGS: Both kidneys are normal and symmetric in size, position and configuration: The right is 13 x 7 cm and the left is 13 x 6.4 cm. The renal parenchyma is mildly hyperechoic suggesting medical renal disease. Two cysts inferior pole the right kidney measured 2.9 cm each. No solid lesions stones or hydronephrosis. Urinary bladder volume is 1074 cc. The patient unable to void. No bladder lesions IMPRESSION: Mild hyperechoic kidneys, bowel medical renal disease Two cysts in the inferior pole right kidney each 3 cm. Marked urinary bladder distention patient unable to void. Interpreted and Authenticated by: Cory Garcia 11/14/20
--- NOTE | 2020-11-14 12:36 | Nephrology Consult Note ---
HPI Data of Consult Primary Care Provider: Kelvin Yu MD Consult Narrative Patient Information: Note initiated : 11/14/20 at 12:33 pm Service Date, if different from initiated Date: [] Patient: Robert Caballero 80 y/o M admitted on 11/06/20 for Slurred Speech, Left Sided Weakness. 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 Patient was last known well at around 8 AM. Reportedly had slurred speech and left-sided weakness. Patient has history of diabetes also states he has history of TIA and what sounds like traumatic brain injury requiring craniotomy in June 2021. Review of records also report history of brain neoplasm. Patient denies headache denies chest pain denies shortness with. Has history of diabetes and hypertension. Patient's is arrived at the bedside and states the patient had a craniotomy for what was suspected his brain neoplasm but ended up being hemorrhage leading to a stroke and this was in June 2021. Patient is also report to that the patient has had some residual left sided lack of coordination since the brai n surgery. He has had some physical and occupational therapy which has improved. She was concerned this morning called EMS because the patient was unsteady when he walked into the kitchen." Home Medications aspirin 81 mg tablet,delayed release 81 mg PO QDAY 02/13/18 [History Confirmed 11/06/20] omega-3 fatty acids 1,000 mg capsule 1,000 mg PO QDAY 02/13/18 [History Co nfirmed 11/06/20] insulin syr/ndl U100 half jose 0.5 mL 31 gauge x 16" #100 each 07/28/19 [Rx Confirmed 11/06/20] insulin U-500 syringe-needle 1/2 mL 31 gauge x 15/64" #100 each 10/05/19 [History Confirmed 11/06/20] tamsulosin 0.4 mg capsule 0.8 mg PO HS 10/05/19 [History Confirmed 11/07/20] pen needle, diabetic 33 gauge x 5/32" #100 each 06/06/20 [Rx Confirmed 11/06/20] insulin NPH-regular 70-30 U-100 insulin 100 unit/mL subcutaneous pen See Rx Instructions .ROUTE .COMPLEX 30 Days #3 ml 07/19/20 [Rx Confirmed 11/06/20] losartan 100 mg-hydrochlorothiazide 25 mg tablet 1 tab PO QDAY #90 tab 08/15/20 [Rx Confirmed 11/06/20] metoprolol succinate 25 mg tablet,extended release 24 hr 25 mg PO .Q HS #90 tab 08/17/20 [Rx Confirmed 11/06/20] blood-glucose meter #1 ea 10/02/20 [Rx Confirmed 11/06/20] blood sugar diagnostic #100 ea 10/04/20 [Rx Confirmed 11/06/20] blood sugar diagnostic #100 ea 10/27/20 [Rx Confirmed 11/06/20] insulin aspart U-100 100 unit/mL (3 mL) subcutaneous pen See Rx Instructions SUB-Q .COMPLEX #15 ml MDD 80 11/01/20 [Rx Confirmed 11/06/20] amlodipine 5 mg PO BID 11/06/20 [History Confirmed 11/06/20] furosemide 40 mg PO QDAY PRN 11/06/20 [History Confirmed 11/06/20] amoxicillin-pot clavulanate [Augmentin] 1 tab PO Q12H #8 tab 11/08/20 [Rx] atorvastatin 80 mg PO HS #60 tab 11/08/20 [Rx] clopidogrel 75 mg PO DAILY #30 tab 11/08/20 [Rx] Laboratory Tests 11/14/20 08:53 WBC 9.9 Hgb 14.3 Hct 43.3 MCV 98.6 Plt Count 216 Eos % (Auto) 3.7 11/14/20 08:53 Sodium 139 Potassium 4.1 Chloride 106 Carbon Dioxide 21 L BUN 44 H Creatinine 2.7 H GFR Calculation 21 Glucose 105 Uric Acid 6.1 Calcium 8.1 L Phosphorus 3.9 Magnesium 2.4 Direct Bilirubin 0.3 H GGT 96 H AST 29 ALT 18 Lactate Dehydrogenase 375 H Albumin 2.7 L Serum Creatinine U/A bland except for PROTEINURIA and Glucosuria on 11/06/2020 (CKD G2A3) 11/06/20 22:28 Urine pH 5.0 Ur Specific [place] 1.027 Urine Protein >=500 A Urine Glucose (UA) >=500 A Urine WBC < 1 Rise in serum creatinine preceded by [address] procedures on 11/06/20 Bladder volume > 1000cc on 11/14/2020 U/S No ACEi, ARBs, loop diuretics, aldosterone antagonists or NSAIDs/CHAPA II inhibitors. FINDINGS: Both kidneys are normal and symmetric in size, position and configuration: The right is 13 x 7 cm and the left is 13 x 6.4 cm. The renal parenchyma is mildly hyperechoic suggesting medical renal disease. Two cysts inferior pole the right kidney measured 2.9 cm each. No solid lesions stones or hydronephrosis. Urinary bladder volume is 1074 cc. The patient unable to void. No bladder lesions Echo November 06, 2020: LVEF 80% Mild LAE Mild with grad 15 mmHg and Valve area 1.8 cm2 Possible nephrotoxic Rx: Pip/Jeff 11/08 to 11/13/2020 IV contrast NO RAASI or NSAIDs Active Medications Acetaminophen (Acetaminophen 325 Mg Tablet) 650 mg PO Q6HP PRN PRN Reason: PAIN/FEVER > 101 Last Admin: 11/08/20 16:07 Dose: 650 mg Documented by: Albuterol/Ipratropium (Ipratropium/Albuterol 3 Ml Ampul.Neb) 3 ml NEB Q4HP PRN PRN Reason: Shortness Of Breath Amlodipine Besylate (Amlodipine 5 Mg Tablet) 10 mg PO DAILY [facility] [place] Last Admin: 11/14/20 08:06 Dose: 10 mg Documented by: Aspirin (Aspirin 81 Mg Tab.Chew) 81 mg PO DAILY [facility] [place] Last Admin: 11/14/20 08:06 Dose: 81 mg Documented by: Atorvastatin Calcium (Atorvastatin 40 Mg Tablet) 80 mg PO HS [facility] [place] Last Admin: 11/13/20 21:01 Dose: 80 mg Documented by: Clopidogrel Bisulfate (Clopidogrel 75 Mg Tablet) 75 mg PO DAILY [facility] [place] Last Admin: 11/14/20 08:06 Dose: 75 mg Documented by: Dextrose (Dextrose 50% 50 Ml Vial) 0 ml IV UD PRN PRN Reason: Hypoglycemia Dextrose (Dextrose 50% 50 Ml Vial) 0 ml IV UD PRN PRN Reason: Hypoglycemia Diagnostic Test (Pha) (Accu-Chek 1 Each Strip) 1 each FS ACHS [facility] [place] Last Admin: 11/14/20 11:20 Dose: 1 each Documented by: Docusate Sodium (Docusate Sodium 100 Mg Capsule) 100 mg PO BID [facility] [place] Last Admin: 11/14/20 08:09 Dose: Not Given Documented by: Glucose (Dextrose 31 Gm Oral.Susp) 15 gm PO PRN PRN PRN Reason: Hypoglycemia Glucose (Dextrose 31 Gm Oral.Susp) 15 gm PO PRN PRN PRN Reason: Hypoglycemia Hydralazine HCl (Hydralazine 20 Mg/Ml Vial) 10 mg IV Q4-6HP PRN PRN Reason: Hypertension Last Admin: 11/12/20 08:03 Dose: 10 mg Documented by: Magnesium Sulfate (Magnesium Sulfate) 2 gm in 50 mls @ 50 mls/hr IV UD PRN PRN Reason: Magnesium </= 1.6 Potassium Chloride 40 meq/ (Dextrose) 520 mls @ 130 mls/hr IV UD PRN PRN Reason: Potassium < 3 Sodium Chloride (Sodium Chloride 0.45%) 1,000 mls @ 75 mls/hr IV .[id number] [facility] [place] Last Admin: 11/14/20 11:20 Dose: 75 mls/hr Documented by: Insulin Human Lispro (Insulin Lispro 1 Unit/0.01 Ml Unit) 0 unit SQ [facility]; Protocol Last Admin: 11/14/20 11:20 Dose: 6 units Documented by: Insulin Lispro Protam/Lispro Human (Insulin, 75/25 Npl/Lispro 1 Unit/0.01 Ml Unit) 25 unit SQ [facility] Last Admin: 11/13/20 21:02 Dose: 25 unit Documented by: Insulin Lispro Protam/Lispro Human (Insulin, 75/25 Npl/Lispro 1 Unit/0.01 Ml Unit) 15 unit SQ DAILY [facility] [place] Last Admin: 11/14/20 09:42 Dose: Not Given Documented by: Metoprolol Tartrate (Metoprolol Tartrate 25 Mg Tablet) 25 mg PO BID [facility] Last Admin: 11/14/20 08:06 Dose: 25 mg Documented by: Ondansetron HCl (Ondansetron 4 Mg/2 Ml Vial) 4 mg IV Q4HP PRN PRN Reason: Nausea And Vomiting Pantoprazole Sodium (Pantoprazole 40 Mg Tablet) 40 mg PO [facility] Last Admin: 11/13/20 21:02 Dose: 40 mg Documented by: Potassium Chloride (Potassium Chloride 20 Meq Tablet) 40 meq PO UD PRN PRN Reason: Potssium is 3-3.5 Potassium Chloride (Potassium Chloride 20 Meq Tablet) 40 meq PO UD PRN PRN Reason: Potassium < 3 Rivaroxaban (Rivaroxaban 15 Mg Tablet) 15 mg PO QPMCC [facility] [place] Last Admin: 11/13/20 17:08 Dose: 15 mg Documented by: Senna (Sennosides 1 Tablet) 2 tab PO DAILYP PRN PRN Reason: Constipation Sodium Chloride (0.9 % Sodium Chloride 10 Ml Syringe) 10 ml IV Q8 [facility] [place] Last Admin: 11/14/20 05:22 Dose: Not Given Documented by: Tamsulosin HCl (Tamsulosin 0.4 Mg Capsule) 0.8 mg PO HS [facility] [place] Last Admin: 11/13/20 21:01 Dose: 0.8 mg Documented by: So this patient has multifactorial acute renal failure: Underlying proteinuria probably represents diabetic nephropathy albeit early Autonomic neuropathy and now with greater than 1 L urinary retention so will need an acute Martins catheter Previous IV contrast exposure on 426 which is temporally related to his decline in GFR Administration of piperacillin/tazobactam in the same timeframe as above up until November 13 which could have caused an acute interstitial nephritis. Recommend: Martins catheter Urine indices to aid in the differential diagnosis of HTN, acute interstitial nephritis, and obstructive uropathy KUB which if it still shows IV contrast in the kidneys would be the Sine kesha non of ATN due to contrast Continue to avoid nonsteroidals. While RAASI inhibitors will be useful in the future, right now we will have to let his GFR improved back towards normal All the above has been discussed with the patient's primary nurse, and the hospital medicine specialist. Orders have been written Chart is been reviewed Review of Systems ROS unobtainable: due to mental status All systems: reviewed and no additional remarkable complaints except as stated Review of systems: No Nsaids No ACEi or ARBs Multiple IV contrast procedures No sustained hypotension (+) pipricillin for 5 days up to 11/13/2020. Chart reviewed as patient unable to contribute to meaningful ROS PFSH PFSH All Active Problems (Updated 11/14/20 @ 18:55 by Clement Lopez MD) Benign prostatic hyperplasia with urinary retention (Acute) ARF (acute renal failure) (Acute) Callus of foot (Chronic) Dry eye syndrome (Chronic) Hyperlipidemia (Chronic) 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) Hypertension (Chronic) Enlarged prostate with lower urinary tract symptoms (LUTS) (Chronic) Other fatigue (Chronic) Hearing loss (Chronic) Arthritis (Chronic) Strain of muscle(s) and tendon(s) of the rotator cuff of right shoulder, initial encounter (Chronic) Abrasion, left lower leg, sequela (Chronic) Encounter for long-term (current) use of insulin (Chronic) Prostatic hypertrophy (Chronic) Plantar fasciitis of left foot (Chronic) Fatigue (Chronic) Preventative health care (Chronic) Generalized headaches (Chronic) GERD (gastroesophageal reflux disease) (Chronic) Heart murmur (Chronic) Cortical cataract (Chronic) Nuclear sclerotic cataract (Chronic) Diabetic eye exam (Chronic 02/03/19) H/O sigmoidoscopy (Chronic ~1995) Medicare annual wellness visit, subsequent (Acute) Blister (Acute) Ulcer of right leg (Acute) Ulcer of left lower leg (Acute) Hypertension (Acute) Edema due to congestive heart failure (Acute) Fall (Acute) Injury of shoulder, right (Acute) Finger sprain (Acute) Fever (Acute) Concussion (Acute) Brain neoplasm (Acute) Mary Kate infection of genital region (Acute) Dysarthria (Acute) Ataxia (Acute) Uncontrolled diabetes mellitus (Acute) Acute ischemic stroke (Acute) Aspiration pneumonia (Acute) Hypernatremia (Acute) Stage 1 acute kidney injury (Acute) Atrial fibrillation (Acute) Medical History (Updated 11/14/20 @ 18:55 by Clement Lopez MD) Abrasion, left lower leg, sequela Arthritis Callus of foot Cortical cataract Diabetic eye exam (02/03/19) Vision source- no retinopathy Dry eye syndrome Encounter for long-term (current) use of insulin Enlarged prostate with lower urinary tract symptoms (LUTS) Fatigue Generalized headaches GERD (gastroesophageal reflux disease) H/O sigmoidoscopy (~1995) Hearing loss Hearing loss of both ears Heart murmur Hyperlipidemia Hypertension Nuclear sclerotic cataract Other fatigue Plantar fasciitis of left foot Preventative health care Prostatic hypertrophy with obstruction Strain of muscle(s) and tendon(s) of the rotator cuff of right shoulder, initial encounter Type 2 diabetes mellitus with autonomic neuropathy He has underlying CKD G2 A3 which most likely was from longstanding diabetes evidenced by proteinuria Prior to admission he had no evidence of a decrement in his GFR, no exposure to ROMERO inhibitors or ARB, no nonsteroidal anti-inflammatories Surgical History History of hernia repair (~1995) Right- Dr Randle in [place] History of left cataract extraction (04/24/17) History of total left knee replacement (~2010) Dr Yung History of total right knee replacement (~2006) Dr Yung Hx of right cataract extraction (04/15/17) Hx of right inguinal hernia repair (~1995) Family History Mother , 85 d/t stroke Thyroid disease Stroke Arthritis Father , 79 Reason not listed Alcoholism Pacemaker Social History occupational status: retired occupation: [employer] physical activity: none alcohol intake frequency: does not drink substance use type: does not use seatbelt use: sometimes MEDS/ALLERGIES Home Medications and Allergies Home Medications Medication Instructions Recorded Confirmed Type aspirin 81 mg tablet,delayed 81 mg PO QDAY 02/13/18 11/06/20 History release omega-3 fatty acids 1,000 mg 1,000 mg PO QDAY 02/13/18 11/06/20 History capsule insulin syr/ndl U100 half jose 0.5 #100 each 07/28/19 11/06/20 Rx mL 31 gauge x 5/16" insulin U-500 syringe-needle 1/2 #100 each 10/05/19 11/06/20 History mL 31 gauge x 15/64" tamsulosin 0.4 mg capsule 0.8 mg PO HS 10/05/19 11/07/20 History pen needle, diabetic 33 gauge x #100 each 06/06/20 11/06/20 Rx 5/32" insulin NPH-regular 70-30 U-100 See Rx Instructions .ROUTE 07/19/20 11/06/20 Rx insulin 100 unit/mL subcutaneous .COMPLEX 30 Days #3 ml pen losartan 100 1 tab PO QDAY #90 tab 08/15/20 11/06/20 Rx mg-hydrochlorothiazide 25 mg tablet metoprolol succinate 25 mg 25 mg PO .Q HS #90 tab 08/17/20 11/06/20 Rx tablet,extended release 24 hr blood-glucose meter #1 ea 10/02/20 11/06/20 Rx blood sugar diagnostic #100 ea 10/04/20 11/06/20 Rx blood sugar diagnostic #100 ea 10/27/20 11/06/20 Rx insulin aspart U-100 100 unit/mL See Rx Instructions SUB-Q .COMPLEX 11/01/20 11/06/20 Rx (3 mL) subcutaneous pen #15 ml MDD 80 amlodipine 5 mg PO BID 11/06/20 11/06/20 History furosemide 40 mg PO QDAY PRN 11/06/20 11/06/20 History amoxicillin-pot clavulanate 1 tab PO Q12H #8 tab 11/08/20 Rx [Augmentin] atorvastatin 80 mg PO HS #60 tab 11/08/20 Rx clopidogrel 75 mg PO DAILY #30 tab 11/08/20 Rx Allergies Allergy/AdvReac Type Severity Reaction Status Date / Time nabumetone [From RELAFEN] AdvReac Mild BLISTERS Verified 11/07/20 07:40 Physical Examination Vital Signs Vital signs: Temp Pulse Resp BP Pulse Ox 36.9 C 68 20 172/87 96 11/14/20 07:59 11/14/20 07:59 11/14/20 07:59 11/14/20 07:59 11/14/20 07:59 General Appearance General appearance: obese and chronically ill Exam Narrative: Unable to follow commands EENT EENT: ATNC, mucous membranes dry, hearing intact and vision intact Neck Neck: no JVD, no carotid bruit and supple Respiratory Respiratory: course breath sounds Cardiovascular Cardiology: mid-systolic murmur (3/6 TATIAAN LUSB), no rub, no gallops, edema, regular rhythm, normal S1 and normal S2 Gastrointestinal Gastrointestinal: normoactive bowel sounds and tenderness (Bladder percussion to 2 cm below the umbilicus, tender with palpation) Integumentary Integumentary: warm and dry, ecchymotic and hyperpigmentation Neurologic Neurologic: asterixis, alert and oriented x3 (A and O x 0), confused, disorien alem, strength 5/5 and aphasia Musculoskeletal Musculoskeletal: erythema Psychiatric Psychiatric: agitated (Can follow simple commands) Results Lab Results Result Diagrams: 11/14/20 08:53 11/14/20 08:53 Lab results: Most recent lab results Calcium 8.1 mg/dL (8.6-10.4) L 11/14/20 08:53 Phosphorus 3.9 mg/dL (2.5-4.5) 11/14/20 08:53 Magnesium 2.4 mg/dL (1.6-2.5) 11/14/20 08:53 A/P Assessment and plan (1) ARF (acute renal failure): Status: Acute Comment: This patient had pre-existing proteinuria but normal GFR in the setting of diabetes... This would render him at some increased risk for IV contrast nephropathy. Differential diagnosis for acute renal failure in this patient includes but is not limited to the followin. IV contrast nephropathy/ATN in the setting of pre-existing diabetic proteinuria with normal GFR on admission 2. Piperacillin related acute interstitial nephritis 3. Underlying diabetic autonomic neuropathy with acute urinary retention of greater than 1 L Work-up was as outlined in the HPI Martins catheter has been placed to relieve urinary retention KUB to look for delayed nephrogram from previous IV contrast administration No evidence for renal infarction His risk factor for IV contrast nephropathy is longstanding diabetes with significant proteinuria, GFR has always been normal prior to admission Qualifiers: Acute renal failure type: unspecified Qualified Code(s): N17.9 - Acute kidney failure, unspecified (2) 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 Comment: He has underlying CKD G2 A3 which most likely was from longstanding diabetes evidenced by proteinuria Prior to admission he had no evidence of a decrement in his GFR, no exposure to ROMERO inhibitors or ARB, no nonsteroidal anti-inflammatories Qualifiers: Diabetes mellitus intermediate insulin use: with intermediate use Qualified Code(s): E11.43 - Type 2 diabetes mellitus with diabetic autonomic (poly)neuropathy; Z79.4 - custodial (current) use of insulin (3) Benign prostatic hyperplasia with urinary retention: Assessment and plan: Was on double dose Flomax Today's renal ultrasound demonstrated greater than 1 L PVR but no comment on hydronephrosis Martins catheter placed, in addition to Flomax he may need additional 5 alpha reductase inhibitor. If this is more neurogenic bladder from diabetes, and 4 times daily straight catheterization starting 48 hours from now would be my recommendation. Neurologic exam to be done as an outpatient. Avoid medications associated with poor bladder function such as narcotics, clonidine, anticholinergic medications Status: Acute Narrative A/P Narrative: See my discussion above and in the HPI. Acute renal failure tends to improve assuming we can eliminate the causes of his acute renal failure. Continue to have large amounts of proteinuria, he would be a candidate for RAASI therapy once his GFR returns to normal. Time Spent With Patient Time: Total time spent is greater than 50% in coordination of care (as documented) at patient's floor/unit and/or counseling patient: Total time spent with greater than 50% in coordination of care (as documented) at patient's floor/unit and/or counseling patient:: Greater than 35 minutes
--- NOTE | 2020-11-14 14:09 | XRay Report ---
CLINICAL INFORMATION: Left-sided abdominal pain COMPARISON: None. FINDINGS: Stool gas pattern is normal. No free air, soft tissue mass or pathologic calcification. Left diaphragm is mildly elevated with small left pleural effusion. IMPRESSION: Mild elevation left diaphragm small left pleural effusion. No intra-abdominal abnormality evident Interpreted and Authenticated by: Cory Garcia 11/14/20
[2020-11-14 15:04] LABS: Uric Acid,Urine Random 19.8 mg/dL (37.0-92.0)
[2020-11-14] MEDS: RIVAROXABAN 15 MG TABLET PO SCH (16:33)
[2020-11-14 18:15] LABS: Appearance,Urine HAZY (Clear); Bacteria,Urine FEW /hpf (0); Bilirubin,Urine Negative (Negative); Color,Urine YELLOW; Culture Indicated,Urine Yes; Glucose,Urine (UA) 50 mg/dL (Negative); Ketones,Urine Negative (Negative); Leukocyte Esterase,Urine Negative /ug (Negative); Nitrate,Urine Negative (Negative); Protein,Urine 30 mg/dL (Negative); Specific Gravity,Urine 1.009 (1.000-1.035); Urine Blood >=1.0 mg/dL (Negative); Urine RBC 92 /hpf (0-3); Urine Squamous Epithelial Cell < 1 /hpf (0-4); Urine WBC 4 /hpf (0-4); Urobilinogen,Urine Negative
[2020-11-14] MEDS: hydrALAZINE 20 MG/ML VIAL IV PRN (19:16)
[2020-11-14] MEDS: TAMSULOSIN 0.4 MG CAPSULE PO SCH (20:48)
[2020-11-14] MEDS: ATORVASTATIN 40 MG TABLET PO SCH (20:48)
[2020-11-14] MEDS: PANTOPRAZOLE 40 MG TABLET PO SCH (20:49)
[2020-11-15] MEDS: 0.45 % SODIUM CHLORIDE 1,000 ML IV SCH ×2 (02:46→16:54)
[2020-11-15] MEDS: 0.9 % SODIUM CHLORIDE 10 ML SYRINGE IV SCH ×3 (07:54→21:18)
[2020-11-15] MEDS: INSULIN LISPRO 1 UNIT/0.01 ML UNIT SQ SCH ×4 (07:55→21:15)
[2020-11-15] MEDS: amLODIPine 5 MG TABLET PO SCH (08:07)
[2020-11-15] MEDS: METOPROLOL TARTRATE 25 MG TABLET PO SCH ×2 (08:07→21:16)
[2020-11-15] MEDS: DOCUSATE SODIUM 100 MG CAPSULE PO SCH ×2 (08:07→21:17)
[2020-11-15] MEDS: ASPIRIN 81 MG TAB.CHEW PO SCH (08:07)
[2020-11-15] MEDS: INSULIN, 75/25 NPL/LISPRO 1 UNIT/0.01 ML UNIT SQ SCH ×2 (08:08→21:14)
[2020-11-15 11:15] LABS: Basophils # (Auto) 0.03 K/mcL (0.00-0.20); Basophils % (Auto) 0.4 % (0.0-2.0); Eosinophils # (Auto) 0.25 K/mcL (0.00-0.70); Eosinophils % (Auto) 3.2 % (0.0-7.0); Hematocrit 41.2 % (41.0-55.0); Hemoglobin 13.8 g/dL (13.5-16.5); Lymphocytes % (Auto) 19.4 % (15.0-49.0); Mean Cell Volume 97.6 fL (80.0-100.0); Mean Corpuscular HGB Conc 33.5 g/dL (31.0-36.0); Mean Platelet Volume 9.3 fL (7.4-10.4); Monocytes # (Auto) 0.61 K/mcL (0.10-0.90); Monocytes % (Auto) 7.9 % (1.0-12.0); Neutrophils % (Auto) 69.1 % (38.0-78.0); Platelet Count 241 K/mcL (140-440); RBC 4.22 M/mcL (4.50-5.90); Red Cell Distribution Width 12.9 % (11.5-14.5); WBC 7.8 K/mcL (4.5-11.0)
--- NOTE | 2020-11-15 11:35 | Internal Med Progress Note ---
SUBJECTIVE Subjective Patient information: Note initiated : 11/15/20 at 11:27 am Service Date, if different from initiated Date: [] Patient: Robert Caballero a 80 y/o M admitted on 11/06/20 for Slurred Speech, Left Sided Weakness. Chief Complaint: [] Interval history: Mr. Caballero is a 80 year old M Presents the ED with slurring of speech ataxia and some left-sided weakness. Last seen normal 8 this morning. Patient's history is significant for a stroke in June where he was treated at [facility] it had a atypical appearance and was concern for mass and underwent craniotomy with tissue biopsy confirming that was ischemic stroke there was no hemorrhagic stroke mentioned in any documentation. Patient is on aspirin and states has been taking it daily, 81 mg. I do not see a statin medication on board. Case was discussed with stroke neurologist in the ED who recommended admission and MRI and that patient was not a TPA candidate. Per the history of the patient he states he was walking in the kitchen and was started open the refrigerator door but is becoming increasingly weak. His helped him to the chair he started having slurring of speech. Denies any headache fever chills chest pain shortness of breath. Vision intact per patient. Reviewing charts from [facility] admission in June for stroke. 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 Case was discussed with interventional radiology at the time and felt no intervention was needed at that time - likely given the location of the stroke on that presentation. MRI today reveals acute stroke to superior cerebellar vermis. I discussed the case with Dr. Vergara who recommended DAPT (which had already been started), no immediate need for intervention, and to f/u with him outpt for further evaluation of the vertebral artery with potential intervention at that time. 11/07 Patient with slurred speech. Seen by speech therapy and placed on pured diet. 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 Discussed the case again with Dr. Vergara. MRI revealing cerebellar stroke Discussed the CTA findings with Dr. Vergara regarding superior cerebellar arteries as well as the cerebral arteries. He reiterated nothing to be done at this time other than medical therapy with dual antiplatelets and to follow-up with Dr. Vergara in the office. 11/08 Patient developed fevers last night. Chest x-ray with basilar infiltrates given his dysarthria concern that he likely aspirated. Not requiring oxygen supplementation at this time. Does have a moist cough, denies other complaints, denies shortness of breath 11/09 Other than some low blood sugars, no overnight event or new complaints. Will decrease home insulin further. Denying any coughing this morning. No shortness of breath. 11/10: No major overnight events. No new complaints. No change in goal of therapy. Hypernatremia. 11/11: No major overnight events. No new complaints. No change in goal of therapy. Hypernatremia. Afebrile overnight. 11/12: Afebrile overnight. Been on room air overnight. No change in goal of therapy. 11/13: Afebrile overnight. Been on room air overnight. Serum Cr increased from 1.5 to 2.4. Fasting glucose 77 this morning. Denies fever, chills, or sweating. Denies SOB or cough or wheezing. c/o mild occipital headache. Denies any nausea, vomiting, diarrhea, or constipation. 11/14-patient seen in room. Worsening creatinine from 1.5-2.7. Nephrology cons ulted. Renal ultrasound ordered. Antibiotic discontinued. No fever chills, per nursing staff intermittent aspiration noted. Case management coordinating transfer to SNF once clinically improved. Currently on level 5 minced diet/thick liquids, remains intermittently confused/weak necessitating post discharge rehab transition 11/15-ultrasound reveals a distended bladder and urinary outlet obstruction. Post Martins's catheter over 2000 cc net negative diuresis. Hematuria noted. Plavix discontinued and currently on Eliquis/aspirin in setting of recent stroke. Will require outpatient urology follow-up on discharge. Case management coordinating SNF transfer. Discharge pending hematuria resolution and improvement in renal function. Nephrology on board. Creatinine 2.7 , repeat labs pending Constitutional Vitals: Vital Signs Temp Pulse Resp BP Pulse Ox 97.4 F 72 20 164/82 95 11/15/20 08:00 11/15/20 08:00 11/15/20 08:00 11/15/20 08:00 11/15/20 08:00 Period Temp Pulse Resp BP Sys/[place] Pulse Ox Last 24 Hr 97.4 F-99.0 F 62-74 18-20 139-186/55-82 93-99 Intake and Output 11/14/20 11/15/20 11/15/20 21:59 05:59 13:59 Intake Total 1120 240 Output Total 3925 1650 Balance -3925 -530 240 Weight 118.025 kg drowsy but inconsistently follows commands Hematuria noted on Martins's catheter No telemetry events Expressive aphasia Persistent elevation in blood pressure requiring hydralazine. Intake & Output: Intake & Output 11/14/20 11/15/20 11/15/20 21:59 05:59 13:59 Intake Total 1120 240 Output Total 3925 1650 Balance -3925 -530 240 Weight 118.025 kg Intake: Nourishment/Supplement quantity 120 (ml) IV 1000 Sodium Chloride 0.45% 1,000 ml 1000 @ 75 mls/hr IV .[id number] [facility] Rx# :[id number] Oral 240 Output: Urine Catheter Amount 3025 1650 Straight 1400 Void Amount 900 Other: Meal Nourishment/Supplement Breakfast Percent of Meal Consumed 75% Feeding Ability Total Assistance Nourishment/Supplement name Ensure Urine Appearance Hematuria Clear Straight Clear Uretheral (Martins) Hematuria Hematuria Urine Color Blood Tinged Blood Tinged Straight Dark Yellow Uretheral (Mratins) [place] Voltaire Urine Odor Normal Straight Strong Stool Size Small Small Stool Color Brown Brown Stool Consistency Soft Soft # of times incontinent of 1 1 Bowels OBJ DATA Labs CBC & Chem 7: 11/15/20 10:18 11/14/20 08:53 Labs: Abnormal Lab Results 11/15/20 11/14/20 11/14/20 10:18 13:30 13:30 RBC 4.22 L Carbon Dioxide BUN Creatinine Glucose Calcium Direct Bilirubin GGT Lactate Dehydrogenase Albumin Albumin/Globulin Ratio Urine Appearance Hazy A Urine Protein 30 A Urine Glucose (UA) 50 A Urine Occult Blood >=1.0 A Urine RBC 92 H Urine Bacteria Few A Urine Eosinophils See comment A Ur Random Chloride Ur Random Uric Acid 11/14/20 11/14/20 11/14/20 13:30 08:53 08:53 RBC 4.39 L Carbon Dioxide 21 L BUN 44 H Creatinine 2.7 H Glucose Calcium 8.1 L Direct Bilirubin 0.3 H GGT 96 H Lactate Dehydrogenase 375 H Albumin 2.7 L Albumin/Globulin Ratio 0.7 L Urine Appearance Urine Protein Urine Glucose (UA) Urine Occult Blood Urine RBC Urine Bacteria Urine Eosinophils Ur Random Chloride 16 L Ur Random Uric Acid 19.8 L 11/13/20 11/13/20 04:56 04:56 RBC 4.39 L Carbon Dioxide BUN 38 H Creatinine 2.4 H Glucose 62 L Calcium 8.0 L Direct Bilirubin GGT Lactate Dehydrogenase Albumin 2.6 L Albumin/Globulin Ratio 0.7 L Urine Appearance Urine Protein Urine Glucose (UA) Urine Occult Blood Urine RBC Urine Bacteria Urine Eosinophils Ur Random Chloride Ur Random Uric Acid Meds: Medications Acetaminophen (Acetaminophen 325 Mg Tablet) 650 mg PO Q6HP PRN PRN Reason: PAIN/FEVER > 101 Last Admin: 11/08/20 16:07 Dose: 650 mg Documented by: Albuterol/Ipratropium (Ipratropium/Albuterol 3 Ml Ampul.Neb) 3 ml NEB Q4HP PRN PRN Reason: Shortness Of Breath Amlodipine Besylate (Amlodipine 5 Mg Tablet) 10 mg PO DAILY [facility] Last Admin: 11/15/20 08:07 Dose: 10 mg Documented by: Aspirin (Aspirin 81 Mg Tab.Chew) 81 mg PO DAILY [facility] Last Admin: 11/15/20 08:07 Dose: 81 mg Documented by: Atorvastatin Calcium (Atorvastatin 40 Mg Tablet) 80 mg PO [facility] Last Admin: 11/14/20 20:48 Dose: 80 mg Documented by: Dextrose (Dextrose 50% 50 Ml Vial) 0 ml IV UD PRN PRN Reason: Hypoglycemia Diagnostic Test (Pha) (Accu-Chek 1 Each Strip) 1 each FS ACHS [facility] Last Admin: 11/15/20 07:54 Dose: 1 each Documented by: Docusate Sodium (Docusate Sodium 100 Mg Capsule) 100 mg PO BID [facility] Last Admin: 11/15/20 08:07 Dose: Not Given Documented by: Glucose (Dextrose 31 Gm Oral.Susp) 15 gm PO PRN PRN PRN Reason: Hypoglycemia Hydralazine HCl (Hydralazine 20 Mg/Ml Vial) 10 mg IV Q4-6HP PRN PRN Reason: Hypertension Last Admin: 11/14/20 19:16 Dose: 10 mg Documented by: Magnesium Sulfate (Magnesium Sulfate) 2 gm in 50 mls @ 50 mls/hr IV UD PRN PRN Reason: Magnesium </= 1.6 Potassium Chloride 40 meq/ (Dextrose) 520 mls @ 130 mls/hr IV UD PRN PRN Reason: Potassium < 3 Sodium Chloride (Sodium Chloride 0.45%) 1,000 mls @ 75 mls/hr IV .[id number] [facility] Last Admin: 11/15/20 02:46 Dose: 75 mls/hr Documented by: Insulin Human Lispro (Insulin Lispro 1 Unit/0.01 Ml Unit) 0 unit SQ ACHS [facility]; Protocol Last Admin: 11/15/20 07:55 Dose: Not Given Documented by: Insulin Lispro Protam/Lispro Human (Insulin, 75/25 Npl/Lispro 1 Unit/0.01 Ml Un it) 25 unit SQ [facility] Last Admin: 11/14/20 21:08 Dose: 25 unit Documented by: Insulin Lispro Protam/Lispro Human (Insulin, 75/25 Npl/Lispro 1 Unit/0.01 Ml Unit) 15 unit SQ DAILY [facility] Last Admin: 11/15/20 08:08 Dose: 15 unit Documented by: Metoprolol Tartrate (Metoprolol Tartrate 25 Mg Tablet) 25 mg PO BID [facility] Last Admin: 11/15/20 08:07 Dose: 25 mg Documented by: Ondansetron HCl (Ondansetron 4 Mg/2 Ml Vial) 4 mg IV Q4HP PRN PRN Reason: Nausea And Vomiting Pantoprazole Sodium (Pantoprazole 40 Mg Tablet) 40 mg PO [facility] Last Admin: 11/14/20 20:49 Dose: 40 mg Documented by: Potassium Chloride (Potassium Chloride 20 Meq Tablet) 40 meq PO UD PRN PRN Reason: Potssium is 3-3.5 Potassium Chloride (Potassium Chloride 20 Meq Tablet) 40 meq PO UD PRN PRN Reason: Potassium < 3 Rivaroxaban (Rivaroxaban 15 Mg Tablet) 15 mg PO QPMCC [facility] Last Admin: 11/14/20 16:33 Dose: Not Given Documented by: Senna (Sennosides 1 Tablet) 2 tab PO DAILYP PRN PRN Reason: Constipation Sodium Chloride (0.9 % Sodium Chloride 10 Ml Syringe) 10 ml IV Q8 [facility] Last Admin: 11/15/20 07:54 Dose: Not Given Documented by: Tamsulosin HCl (Tamsulosin 0.4 Mg Capsule) 0.8 mg PO [facility] Last Admin: 11/14/20 20:48 Dose: 0.8 mg Documented by: A/P Narrative A/P Narrative: * Acute ischemic cardioembolic multifocal CVA, 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 Continue to discuss with family regarding overall prognosis and goal of care * Acute renal failure secondary to bladder outlet obstruction/contrast injury. Nephrology on board. Creatinine 2.7. * Hematuria secondary to traumatic Matrins insertion and blood thinners. Continue monitoring. * Aspiration pneumonia: Now off antibiotics, continue level 5 minced diet/thick liquids per ST/upright positioning and aspiration precautions. * Hypertension continue metoprolol/amlodipine, suboptimally controlled. Nephrology consulted * T2DM: Basal prandial insulin/CC diet * Atrial fibrillation: Rate controlled on Metoprolol [id number] PO BID, on Xarelto Plan * Nephrology consult * Continue aggressive postop rehab * Monitor hematuria clearance * Pre-existing medical condition management as above * Discharge planning per case management likely SNF pending renal function and hematuria resolution and Time Spent With Patient Time: Total time spent is greater than 50% in coordination of care (as documented) at patient's floor/unit and/or counseling patient: QUALITY Stroke Onset of Symptoms Date: 11/06/20 Onset of Symptoms Time: 08:00 Symptom Onset Unknown: Yes VTE Deep Vein Thrombosis/Pulmonary Embolism Present on Admission: No
[2020-11-15 11:45] LABS: ALT/SGPT 18 U/L (<40); AST/SGOT 33 U/L (<40); Albumin 2.5 gm/dL (3.2-5.2); Albumin/Globulin Ratio 0.7 (1.0-2.3); Alkaline Phosphatase 57 U/L (39-117); Bilirubin,Direct < 0.2 mg/dL (0-0.3); Bilirubin,Total 0.6 mg/dL (0.1-1.0); Blood Urea Nitrogen 29 mg/dL (8-23); Calcium 8.4 mg/dL (8.6-10.4); Carbon Dioxide 25 mmol/L (22-30); Chloride 111 mmol/L (96-108); Globulin 3.6 gm/dL (2.2-3.7); Glomerular Filtration Rate 52; Glucose 155 mg/dL (70-105); Lactate Dehydrogenase 465 U/L (135-225); Phosphorous 2.5 mg/dL (2.5-4.5); Triglycerides 179 mg/dL (<150); Uric Acid 6.1 mg/dL (2.5-8.0)
--- NOTE | 2020-11-15 13:06 | Nephrology Progress Note ---
SUBJECTIVE Subjective Patient information: Note initiated : 11/15/20 at 1:03 pm Service Date, if different from initiated Date: [] Patient: Robert Caballero 80 y/o M admitted on 11/06/20 for Slurred Speech, Left Sided Weakness. Chief Complaint: [CVA] This patient normal GFR and some proteinuria upon admission late last month for proved to be an acute cerebellar stroke. Developed acute renal failure which is multifactorial including IV contrast, piperacillin administration, and urinary retention of greater than 1 L, but no documented hypotension or RAASI inhibitors or NSAIDs. KUB done almost a week after IV contrast administration did not show a delayed nephrogram so that neither proves or disprove the presence of ATN due to the time between contrast exposure and the KUB. Martins catheter was placed yesterday Laboratory Tests 11/14/20 11/15/20 13:30 10:17 Sodium 144 Potassium 4.2 Chloride 111 H Carbon Dioxide 25 Anion Gap 8.0 BUN 29 H Creatinine 1.3 H GFR Calculation 52 Glucose 155 H Uric Acid 6.1 Calcium 8.4 L Phosphorus 2.5 Magnesium 2.1 Total Bilirubin 0.6 Direct Bilirubin < 0.2 GGT 86 H AST 33 ALT 18 Alkaline Phosphatase 57 Lactate Dehydrogenase 465 H Total Protein 6.1 Albumin 2.5 L Globulin 3.6 Albumin/Globulin Ratio 0.7 L Urine Eosinophils See comment A Vital Signs Temp Pulse Resp BP BP Pulse Ox 11/15/20 08:00 36.3 C 72 20 164/82 95 11/15/20 04:20 36.8 C 73 20 139/78 99 11/14/20 23:41 37.2 C 74 20 177/55 96 11/14/20 19:15 97 11/14/20 19:03 37.1 C 72 18 186/79 97 11/14/20 16:00 36.8 C 69 20 181/76 93 Intake and Output 11/14/20 11/15/20 11/15/20 21:59 05:59 13:59 Intake Total 1120 240 Output Total 3925 1650 Balance -3925 -530 240 Intake: Nourishment/Supplement quantity 120 (ml) IV 1000 Sodium Chloride 0.45% 1,000 ml 1000 @ 75 mls/hr IV .[id number] [facility] Rx# :[id number] Oral 240 Output: Urine Catheter Amount 3025 1650 Straight 1400 Void Amount 900 Other: Meal Nourishment/Supplement Breakfast Percent of Meal Consumed 75% Feeding Ability Total Assistance Nourishment/Supplement name Ensure Urine Appearance Hematuria Clear Straight Clear Uretheral (Martins) Hematuria Hematuria Urine Color Blood Tinged Blood Tinged Straight Dark Yellow Uretheral (Martins) [place] Urine Odor Normal Straight Strong Stool Size Small Small Stool Color Brown Brown Stool Consistency Soft Soft # of times incontinent of 1 1 Bowels Weight 118.025 kg Most likely this is acute renal failure from obstructive uropathy given the marked improvement with Martins catheter placement. Was on double dose Flomax, I do not see any medications that would interfere with bladder function such as narcotics, certain antihypertensives such as clonidine, or anticholinergics. I recommendation at this point would be to remove the Martins and do every 8 hour bladder scanning with straight cath if greater than 250 cc occur. He can empty his bladder he will have to be discharged on a straight cath regiment with follow-up as an outpatient with urologist if appropriate. Continue to avoid nephrotoxic medications. Have been feeling his underlying problem is diabetic autonomic neuropathy in terms of urinary retention which means Martins or straight cath or suprapubic catheter. Constitutional Vitals: Vital Signs Temp Pulse Resp BP Pulse Ox 36.3 C 72 20 164/82 95 11/15/20 08:00 11/15/20 08:00 11/15/20 08:00 11/15/20 08:00 11/15/20 08:00 Period Temp Pulse Resp BP Sys/[place] Pulse Ox Last 24 Hr 36.3 C-37.2 C 69-74 18-20 139-186/55-82 93-99 Intake and Output 11/14/20 11/15/20 11/15/20 21:59 05:59 13:59 Intake Total 1120 240 Output Total 3925 1650 Balance -3925 -530 240 Weight 118.025 kg Intake & Output: Intake & Output 11/14/20 11/15/20 11/15/20 21:59 05:59 13:59 Intake Total 1120 240 Output Total 3925 1650 Balance -3925 -530 240 Weight 118.025 kg Intake: Nourishment/Supplement quantity 120 (ml) IV 1000 Sodium Chloride 0.45% 1,000 ml 1000 @ 75 mls/hr IV .[id number] [facility] Rx# :[id number] Oral 240 Output: Urine Catheter Amount 3023 1650 Straight 1400 Void Amount 900 Other: Meal Nourishment/Supplement Breakfast Percent of Meal Consumed 75% Feeding Ability Total Assistance Nourishment/Supplement name Ensure Urine Appearance Hematuria Clear Straight Clear Uretheral (Martins) Hematuria Hematuria Urine Color Blood Tinged Blood Tinged Straight Dark Yellow Uretheral (Martins) [place] Urine Odor Normal Straight Strong Stool Size Small Small Stool Color Brown Brown Stool Consistency Soft Soft # of times incontinent of 1 1 Bowels Current Medications Acetaminophen (Acetaminophen 325 Mg Tablet) 650 mg PO Q6HP PRN PRN Reason: PAIN/FEVER > 101 Last Admin: 11/08/20 16:07 Dose: 650 mg Documented by: Albuterol/Ipratropium (Ipratropium/Albuterol 3 Ml Ampul.Neb) 3 ml NEB Q4HP PRN PRN Reason: Shortness Of Breath Amlodipine Besylate (Amlodipine 5 Mg Tablet) 10 mg PO DAILY [facility] Last Admin: 11/15/20 08:07 Dose: 10 mg Documented by: Aspirin (Aspirin 81 Mg Tab.Chew) 81 mg PO DAILY [facility] Last Admin: 11/15/20 08:07 Dose: 81 mg Documented by: Atorvastatin Calcium (Atorvastatin 40 Mg Tablet) 80 mg PO [facility] Last Admin: 11/14/20 20:48 Dose: 80 mg Documented by: Dextrose (Dextrose 50% 50 Ml Vial) 0 ml IV UD PRN PRN Reason: Hypoglycemia Diagnostic Test (Pha) (Accu-Chek 1 Each Strip) 1 each FS ACHS [facility] Last Admin: 11/15/20 11:56 Dose: 1 each Documented by: Docusate Sodium (Docusate Sodium 100 Mg Capsule) 100 mg PO BID [facility] Last Admin: 11/15/20 08:07 Dose: Not Given Documented by: Glucose (Dextrose 31 Gm Oral.Susp) 15 gm PO PRN PRN PRN Reason: Hypoglycemia Hydralazine HCl (Hydralazine 20 Mg/Ml Vial) 10 mg IV Q4-6HP PRN PRN Reason: Hypertension Last Admin: 11/14/20 19:16 Dose: 10 mg Documented by: Magnesium Sulfate (Magnesium Sulfate) 2 gm in 50 mls @ 50 mls/hr IV UD PRN PRN Reason: Magnesium </= 1.6 Potassium Chloride 40 meq/ (Dextrose) 520 mls @ 130 mls/hr IV UD PRN PRN Reason: Potassium < 3 Sodium Chloride (Sodium Chloride 0.45%) 1,000 mls @ 75 mls/hr IV .[id number] [facility] Last Admin: 11/15/20 02:46 Dose: 75 mls/hr Documented by: Insulin Human Lispro (Insulin Lispro 1 Unit/0.01 Ml Unit) 0 unit SQ [facility]; Protocol Last Admin: 11/15/20 12:29 Dose: 6 units Documented by: Insulin Lispro Protam/Lispro Human (Insulin, 75/25 Npl/Lispro 1 Unit/0.01 Ml Unit) 25 unit SQ [facility] Last Admin: 11/14/20 21:08 Dose: 25 unit Documented by: Insulin Lispro Protam/Lispro Human (Insulin, 75/25 Npl/Lispro 1 Unit/0.01 Ml Unit) 15 unit SQ DAILY [facility] Last Admin: 11/15/20 08:08 Dose: 15 unit Documented by: Metoprolol Tartrate (Metoprolol Tartrate 25 Mg Tablet) 25 mg PO BID [facility] Last Admin: 11/15/20 08:07 Dose: 25 mg Documented by: Ondansetron HCl (Ondansetron 4 Mg/2 Ml Vial) 4 mg IV Q4HP PRN PRN Reason: Nausea And Vomiting Pantoprazole Sodium (Pantoprazole 40 Mg Tablet) 40 mg PO [facility] Last Admin: 11/14/20 20:49 Dose: 40 mg Documented by: Potassium Chloride (Potassium Chloride 20 Meq Tablet) 40 meq PO UD PRN PRN Reason: Potssium is 3-3.5 Potassium Chloride (Potassium Chloride 20 Meq Tablet) 40 meq PO UD PRN PRN Reason: Potassium < 3 Rivaroxaban (Rivaroxaban 15 Mg Tablet) 15 mg PO QPMCC [facility] Last Admin: 11/14/20 16:33 Dose: Not Given Documented by: Senna (Sennosides 1 Tablet) 2 tab PO DAILYP PRN PRN Reason: Constipation Sodium Chloride (0.9 % Sodium Chloride 10 Ml Syringe) 10 ml IV Q8 [facility] Last Admin: 11/15/20 07:54 Dose: Not Given Documented by: Tamsulosin HCl (Tamsulosin 0.4 Mg Capsule) 0.8 mg PO [facility] Last Admin: 11/14/20 20:48 Dose: 0.8 mg Documented by: Most likely this is acute renal failure from obstructive uropathy given the marked improvement with Martins catheter placement. Was on double dose Flomax, I do not see any medications that would interfere with bladder function such as narcotics, certain antihypertensives such as clonidine, or anticholinergics. I recommendation at this point would be to remove the Martins and do every 8 hour bladder scanning with straight cath if greater than 250 cc occur. He can empty his bladder he will have to be discharged on a straight cath regiment with follow-up as an outpatient with urologist if appropriate. General appearance: mild distress and morbidly obese Head Head exam: Present normocephalic Eye Eye exam: Present EOMI and PERRL; Absent scleral icterus ENT ENT exam: Present mucous membranes dry Neck Neck exam: Absent meningismus Respiratory Respiratory exam: Present rhonchi; Absent rales, stridor and wheezes Cardiovascular Cardiovascular exam: Present normal rate and rhythm, +S1 and +S2; Absent +S3 GI/Abdominal GI/Abdominal exam: Present diminished bowel sounds Additional comments: Bladder no longer disdended Additional comments: Martins in place with resolution of pelvic "mass" Neurological Exam Neurological exam: Present abnormal gait and CN II-XII intact Additional comments: Finger to nose and heel to valles very poor Alternating rapid movements poor Difficult to get him to tract with eyes but no nystagmus Power at least 4+/5 Psychiatric Psychiatric exam: Present agitated Skin Skin exam: Present dry A/P Assessment and plan (1) ARF (acute renal failure): Status: Acute Comment: This patient had pre-existing proteinuria but normal GFR in the setting of diabetes... This would render him at some increased risk for IV contrast nephropathy. Differential diagnosis for acute renal failure in this patient includes but is not limited to the followin. IV contrast nephropathy/ATN in the setting of pre-existing diabetic p roteinuria with normal GFR on admission 2. Piperacillin related acute interstitial nephritis 3. 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 Marked improvement overnight with Martins in place argues for primarily obstructive uropathy 2. He is already on double dose Flomax so not much advantage to adding another medication 3. Avoid any medicines that interfere with bladder function such as clonidine, anticholinergics, narcotics 4. Remove Martins 5. Every 8 hour bladder scan and straight cath if bladder volume greater than 250 cc 6. If he fails this voiding trial will either need chronic indwelling Martins or suprapubic catheter. 7. Appropriate he should have a urology evaluation as an outpatient. 8. Until we are certain the obstructive uropathy has been adequately dealt with he should not be given nonsteroidal anti-inflammatories or RAASI therapy Time Spent With Patient Time: Total time spent is greater than 50% in coordination of care (as documented) at patient's floor/unit and/or counseling patient: Total time spent with greater than 50% in coordination of care (as documented) at patient's floor/unit and/or counseling patient:: Greater than 35 minutes
[2020-11-15] MEDS: RIVAROXABAN 15 MG TABLET PO SCH (16:58)
[2020-11-15] MEDS: PANTOPRAZOLE 40 MG TABLET PO SCH (21:16)
[2020-11-15] MEDS: TAMSULOSIN 0.4 MG CAPSULE PO SCH (21:16)
[2020-11-15] MEDS: ATORVASTATIN 40 MG TABLET PO SCH (21:17)
[2020-11-16] MEDS: 0.9 % SODIUM CHLORIDE 10 ML SYRINGE IV SCH (05:03)
[2020-11-16] MEDS: 0.45 % SODIUM CHLORIDE 1,000 ML IV SCH (05:41)
[2020-11-16] MEDS: INSULIN LISPRO 1 UNIT/0.01 ML UNIT SQ SCH ×2 (07:17→13:35)
[2020-11-16 07:46] LABS: Basophils # (Auto) 0.06 K/mcL (0.00-0.20); Basophils % (Auto) 0.8 % (0.0-2.0); Eosinophils # (Auto) 0.29 K/mcL (0.00-0.70); Hematocrit 40.7 % (41.0-55.0); Hemoglobin 13.2 g/dL (13.5-16.5); Lymphocytes # (Auto) 1.89 K/mcL (1.50-4.80); Lymphocytes % (Auto) 25.7 % (15.0-49.0); Mean Cell Volume 100.2 fL (80.0-100.0); Mean Corpuscular HGB Conc 32.4 g/dL (31.0-36.0); Mean Platelet Volume 9.3 fL (7.4-10.4); Monocytes % (Auto) 8.2 % (1.0-12.0); Neutrophils % (Auto) 61.3 % (38.0-78.0); Platelet Count 227 K/mcL (140-440); RBC 4.06 M/mcL (4.50-5.90); Red Cell Distribution Width 12.6 % (11.5-14.5); WBC 7.3 K/mcL (4.5-11.0)
[2020-11-16] MEDS: DOCUSATE SODIUM 100 MG CAPSULE PO SCH (08:51)
[2020-11-16] MEDS: amLODIPine 5 MG TABLET PO SCH (08:51)
[2020-11-16] MEDS: ASPIRIN 81 MG TAB.CHEW PO SCH (08:51)
[2020-11-16] MEDS: METOPROLOL TARTRATE 25 MG TABLET PO SCH (08:52)
--- NOTE | 2020-11-16 09:08 | Nephrology Progress Note ---
SUBJECTIVE Subjective Patient information: Note initiated : 11/16/20 at 9:04 am Service Date, if different from initiated Date: [] Patient: Robert Caballero 80 y/o M admitted on 11/06/20 for Slurred Speech, Left Sided Weakness. Chief Complaint: [Cerebellar stroke] ARF in the setting of CKDG2/A3 and underlying DM with autonomic neuropathy, likely neurogenic bladder +/- BPH with LUTS No Nsaids (allergies) and no ACEi/ARB. Vital Signs Temp Pulse Resp BP BP Pulse Ox 11/16/20 08:00 36.6 C 67 20 152/77 94 11/16/20 03:35 36.8 C 62 20 157/70 95 11/15/20 23:30 36.8 C 59 L 20 146/69 97 11/15/20 18:40 37.1 C 66 20 178/74 97 11/15/20 16:00 36.7 C 76 20 173/81 95 11/15/20 12:00 36.4 C 82 20 169/85 95 Intake and Output 11/15/20 11/16/20 11/16/20 21:59 05:59 13:59 Intake Total 1720 959 Output Total 1200 1675 Balance 520 -716 Intake: IV 1000 959 Sodium Chloride 0.45% 1,000 ml 1000 959 @ 75 mls/hr IV .[id number] [facility] Rx# :[id number] Oral 720 0 Output: Urine Catheter Amount 1200 1675 Other: Meal Dinner Percent of Meal Consumed 60% Feeding Ability Needs Supervision Urine Appearance Cloudy Sediment Hematuria Uretheral (Beltran) Cloudy Sediment Hematuria Urine Color Bright Yellow Uretheral (Beltran) Dark Red Stool Size Small # Bowel Movements 1 Weight 118.115 kg Catheter removed last PM and Q8hr bladder scanning and straight cath prn PVRV >250 cc ~0330 hr PVR 540 cc and pt straight cath x 1 Seen and evaluated as he was being assisted to wheelchair for transfer [facility] Constitutional Vitals: Vital Signs Temp Pulse Resp BP Pulse Ox 36.8 C 62 20 157/70 95 11/16/20 03:35 11/16/20 03:35 11/16/20 03:35 11/16/20 03:35 11/16/20 03:35 Period Temp Pulse Resp BP Sys/[place] Pulse Ox Last 24 Hr 36.4 C-37.1 C 59-82 20-20 146-178/69-85 95-97 Intake and Output 11/15/20 11/16/20 11/16/20 21:59 05:59 13:59 Intake Total 1720 959 Output Total 1200 1675 Balance 520 -716 Weight 118.115 kg Intake & Output: Intake & Output 11/15/20 11/16/20 11/16/20 21:59 05:59 13:59 Intake Total 1720 959 Output Total 1200 1675 Balance 520 -716 Weight 118.115 kg Intake: IV 1000 959 Sodium Chloride 0.45% 1,000 ml 1000 959 @ 75 mls/hr IV .[id number] Rx# :[id number] Oral 720 0 Output: Urine Catheter Amount 1200 1675 Other: Meal Dinner Percent of Meal Consumed 60% Feeding Ability Needs Supervision Urine Appearance Cloudy Sediment Hematuria Uretheral (Beltran) Cloudy Sediment Hematuria Urine Color Bright Yellow Uretheral (Beltran) Dark Red Stool Size Small # Bowel Movements 1 General appearance: mild distress and obese Exam: Cannot support himself due to cerebellar ataxia post cerebellar CVA Respiratory Respiratory exam: Present normal respiratory exam and rhonchi; Absent respiratory distress, stridor and wheezes Cardiovascular Cardiovascular exam: Present normal rate and rhythm, +S1 and +S2; Absent bradycardia, rubs, +S3 and tachycardia GI/Abdominal GI/Abdominal exam: Present diminished bowel sounds Additional comments: Cannot void w/o catheter. Neurogenic bladder likely Additional comments: Develops enlarging lower abdominal dullness as bladder fills up. PVR 550 to 1050 cc despite double dose flowmax Extremities Exam Extremities exam: Present pedal edema Neurological Exam Neurological exam: Present abnormal gait (Marked cerebellar ataxia with 2 person assist) and CN II-XII intact Psychiatric Psychiatric exam: Present anxious Additional comments: speech is garbled but improved from 11/11/2020 Skin Skin exam: Present dry A/P Assessment and plan (1) ARF (acute renal failure): Status: Acute Comment: This patient had pre-existing proteinuria but normal GFR in the setting of diabetes... This would render him at some increased risk for IV contrast nephr opathy. Differential diagnosis for acute renal failure in this patient includes but is not limited to the followin. IV contrast nephropathy/ATN in the setting of pre-existing diabetic proteinuria with normal GFR on admission 2. Piperacillin related acute interstitial nephritis 3. Underlying diabetic autonomic neuropathy with acute urinary retention of greater than 1 L Work-up was as outlined in the HPI Beltran catheter has been placed to relieve urinary retention KUB to look for delayed nephrogram from previous IV contrast administration => NONE seen No evidence for renal infarction His risk factor for IV contrast nephropathy is longstanding diabetes with significant proteinuria, GFR has always been normal prior to admission but this was NOT the issue Neurogenic bladder (diabetes and CVA x 2) with marked increase in PVRV (550-1050 cc) relieved with beltran. Changed to q 8 hour straight cath if bladder scan > 250 cc confirmed with nursing. No renal follow up needed. 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 Comment: He has underlying CKD G2 A3 which most likely was from longstanding diabetes evidenced by proteinuria Prior to admission he had no evidence of a decrement in his GFR, no exposure to ROMERO inhibitors or ARB, no nonsteroidal anti-inflammatories Qualifiers: Diabetes mellitus 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
[2020-11-16 09:40] LABS: ALT/SGPT 17 U/L (<40); AST/SGOT 28 U/L (<40); Albumin 2.5 gm/dL (3.2-5.2); Albumin/Globulin Ratio 0.8 (1.0-2.3); Alkaline Phosphatase 61 U/L (39-117); Bilirubin,Direct 0.2 mg/dL (<0.3); Bilirubin,Total 0.7 mg/dL (0.1-1.0); Blood Urea Nitrogen 21 mg/dL (8-23); Calcium 8.4 mg/dL (8.6-10.4); Carbon Dioxide 22 mmol/L (22-30); Chloride 111 mmol/L (96-108); Globulin 3.3 gm/dL (2.2-3.7); Glomerular Filtration Rate 71; Glucose 150 mg/dL (70-105); Lactate Dehydrogenase 361 U/L (135-225); Phosphorous 2.5 mg/dL (2.5-4.5); Triglycerides 89 mg/dL (<150); Uric Acid 5.7 mg/dL (2.5-8.0)
[2020-11-16] MEDS: INSULIN, 75/25 NPL/LISPRO 1 UNIT/0.01 ML UNIT SQ SCH (10:04)
--- NOTE | 2020-11-16 11:09 | Discharge Summary ---
Discharge Provider Provider Patient information: Note initiated : 11/16/20 at 11:05 am Service Date, if different from initiated Date: [] Patient: Robert Caballero 80 y/o M admitted on 11/06/20 for Slurred Speech, Left Sided Weakness. 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 Discharging to SNF for continued p osthospitalization/stroke rehab * Acute renal failure secondary to bladder outlet obstruction/contrast injury. Nephrology on board. Creatinine 2.7 normalized down to 1 as of 11/16. Nephrology recommends outpatient follow-up with urology/continued straight cath if urine retention noted more than 250 cc on bladder scan. * Hematuria secondary to traumatic Martins insertion and blood thinners. Resolved * Aspiration pneumonia: Resolved and now off antibiotics, continue level 5 minced diet/thick liquids per ST/upright positioning and aspiration precautions. * Hypertension continue metoprolol/amlodipine, suboptimally controlled. Nephrology consulted * T2DM: Basal prandial insulin/CC diet * Atrial fibrillation: Rate controlled on Metoprolol [id number] PO BID, on Xarelto Brief hospital course Mr. Caballero is a 80 year old M Presents the ED with slurring of speech ataxia and some left-sided weakness. Last seen normal 8 this morning. Patient's history is significant for a stroke in June where he was treated at [facility] it had a atypical appearance and was concern for mass and underwent craniotomy with tissue biopsy confirming that was ischemic stroke the re was no hemorrhagic stroke mentioned in any documentation. Patient is on aspirin and states has been taking it daily, 81 mg. I do not see a statin medication on board. Case was discussed with stroke neurologist in the ED who recommended admission and MRI and that patient was not a TPA candidate. Per the history of the patient he states he was walking in the kitchen and was started open the refrigerator door but is becoming increasingly weak. His helped him to the chair he started having slurring of speech. Denies any headache fever chills chest pain shortness of breath. Vision intact per patient. Reviewing charts from [facility] admission in June for stroke. 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 Case was discussed with interventional radiology at the time and felt no intervention was needed at that time - likely given the location of the stroke on that presentation. MRI today reveals acute stroke to superior cerebellar vermis. I discussed the case with Dr. Vergara who recommended DAPT (which had already been started), no immediate need for intervention, and to f/u with him outpt for further evaluation of the vertebral artery with potential intervention at that time. 11/07 Patient with slurred speech. Seen by speech therapy and placed on pured diet. CTA head neck did not mention vertebral stenosis as it didn't Oleg but he did mention some cerebellar artery abnormalities and some stenosis in P1 P2 of cerebral arteries. Discussed the case again with Dr. Vergara. MRI revealing cerebellar stroke Discussed the CTA findings with Dr. Vergara regarding superior cerebellar arteries as well as the cerebral arteries. He reiterated nothing to be done at this time other than medical therapy with dual antiplatelets and to follow-up with Dr. Vergara in the office. 11/08 Patient developed fevers last night. Chest x-ray with basilar infiltrates given his dysarthria concern that he likely aspirated. Not requiring oxygen supplementation at this time. Does have a moist cough, denies other complaints, denies shortness of breath 11/09 Other than some low blood sugars, no overnight event or new complaints. Will decrease home insulin further. Denying any coughing this morning. No shortness of breath. 11/10: No major overnight events. No new complaints. No change in goal of therapy. Hypernatremia. 11/11: No major overnight events. No new complaints. No change in goal of therapy. Hypernatremia. Afebrile overnight. 11/12: Afebrile overnight. Been on room air overnight. No change in goal of therapy. 11/13: Afebrile overnight. Been on room air overnight. Serum Cr increased from 1.5 to 2.4. Fasting glucose 77 this morning. Denies fever, chills, or sweating. Denies SOB or cough or wheezing. c/o mild occipital headache. Denies any nausea, vomiting, diarrhea, or constipation. 11/14-patient seen in room. Worsening creatinine from 1.5-2.7. Nephrology consulted. Renal ultrasound ordered. Antibiotic discontinued. No fever chills, per nursing staff intermittent aspiration noted. Case management coordinating transfer to SNF once clinically improved. Currently on level 5 minced diet/thick liquids, remains intermittently confused/weak necessitating post discharge rehab transition 11/15-ultrasound reveals a distended bladder and urinary outlet obstruction. Post Martins's catheter over 2000 cc net negative diuresis. Hematuria noted. Plavix discontinued and currently on Eliquis/aspirin in setting of recent stroke. Will require outpatient urology follow-up on discharge. Case management coordinating SNF transfer. Discharge pending hematuria resolution and improvement in renal function. Nephrology on board. Creatinine 2.7 , repeat labs pending 11/16-patient doing remarkably better. Martins discontinued by nephrology. Recommends straight cath if bladder scan reveals more than 250 cc urine, recommend outpatient follow-up with urology. Creatinine down to 1. No overnight fever chills. Alert and respond to commands. Transitioning to [facility]. Discharge instructions as below Date of admission: 11/06/20 15:25 Discharge date: 11/16/20 Primary care physician: Kelvin Yu MD Consults: 11/06/20 Consult to Physician [CONS] Stat Comment: Consulting Provider: Jet Hawley Reason For Exam: Physician to Consult 11/06/20 09:37 Consult to Physician [CONS] Stat Comment: Consulting Provider: Telestroke,Provider Reason For Exam: Physician to Consult 11/14/20 12:08 Consult to Physician [CONS] Routine Comment: Acute kidney injury Consulting Provider: Clement Lopez Reason For Exam: Physician to Consult Discharge Meds Discharge Medications Home Medications aspirin 81 mg tablet,delayed release 81 mg PO QDAY 02/13/18 [History Confirmed 11/06/20 Last Taken Unknown] omega-3 fatty acids 1,000 mg capsule 1,000 mg PO QDAY 02/13/18 [History Confirmed 11/06/20 Last Taken Unknown] insulin syr/ndl U100 half jose 0.5 mL 31 gauge x 16" #100 each 07/28/19 [Rx Confirmed 11/06/20 Last Taken Unknown] insulin U-500 syringe-needle 1/2 mL 31 gauge x " #100 each 10/05/19 [History Confirmed 11/06/20 Last Taken Unknown] tamsulosin 0.4 mg capsule 0.8 mg PO HS 10/05/19 [History Confirmed 11/07/20 Last Taken Unknown] pen needle, diabetic 33 gauge x 32" #100 each 06/06/20 [Rx Confirmed 11/06/20 Last Taken Unknown] insulin NPH-regular 70-30 U-100 insulin 100 unit/mL subcutaneous pen See Rx Instructions .ROUTE .COMPLEX 30 Days #3 ml 07/19/20 [Rx Confirmed 11/06/20 Last Taken Unknown] losartan 100 mg-hydrochlorothiazide 25 mg tablet 1 tab PO QDAY #90 tab 08/15/20 [Rx Confirmed 11/06/20 Last Taken Unknown] metoprolol succinate 25 mg tablet,extended release 24 hr 25 mg PO .Q HS #90 tab 08/17/20 [Rx Confirmed 11/06/20 Last Taken Unknown] blood-glucose meter #1 ea 10/02/20 [Rx Confirmed 11/06/20 Last Taken Unknown] blood sugar diagnostic #100 ea 10/04/20 [Rx Confirmed 11/06/20 Last Taken Unknown] blood sugar diagnostic #100 ea 10/27/20 [Rx Confirmed 11/06/20 Last Taken Unknown] insulin aspart U-100 100 unit/mL (3 mL) subcutaneous pen See Rx Instructions SUB-Q .COMPLEX #15 ml MDD 80 11/01/20 [Rx Confirmed 11/06/20 Last Taken Unknown] amlodipine 5 mg PO BID 11/06/20 [History Confirmed 11/06/20 Last Taken Unknown] furosemide 40 mg PO QDAY PRN 11/06/20 [History Confirmed 11/06/20 Last Taken Unknown] atorvastatin 80 mg PO HS #60 tab 11/08/20 [Rx Last Taken Unknown] rivaroxaban [Xarelto] 15 mg PO QPMCC #30 tab 11/16/20 [Rx Last Taken Unknown] COURSE Hospital Course Hospital course: . Discharge diagnosis: . Time Spent with Patient Time attestation: Total time spent providing and/or coordinating discharge services: EXAM Constitutional Vitals: Temp Pulse Resp BP Pulse Ox 97.8 F 67 20 152/77 94 11/16/20 08:00 11/16/20 08:00 11/16/20 08:00 11/16/20 08:00 11/16/20 08:00 Discharge Data Data Completed and Pending Labs on day of discharge: Labs from last 24 hours 11/16/20 11/16/20 11/15/20 06:16 06:16 10:18 WBC 7.3 7.8 RBC 4.06 L 4.22 L Hgb 13.2 L 13.8 Hct 40.7 L 41.2 MCV 100.2 H 97.6 MCH 32.5 32.7 MCHC 32.4 33.5 RDW 12.6 12.9 Plt Count 227 241 MPV 9.3 9.3 Neut % (Auto) 61.3 69.1 Lymph % (Auto) 25.7 19.4 [place] % (Auto) 8.2 7.9 Eos % (Auto) 4.0 3.2 Baso % (Auto) 0.8 0.4 Lymph # (Auto) 1.89 1.50 [place] # (Auto) 0.60 0.61 Eos # (Auto) 0.29 0.25 Baso # (Auto) 0.06 0.03 Absolute Neutrophils 4.50 5.36 Sodium 141 Potassium 3.9 Chloride 111 H Carbon Dioxide 22 Anion Gap 8.0 BUN 21 Creatinine 1.0 GFR Calculation 71 Glucose 150 H Uric Acid 5.7 Calcium 8.4 L Phosphorus 2.5 Magnesium 2.1 Total Bilirubin 0.7 Direct Bilirubin 0.2 GGT 83 H AST 28 ALT 17 Alkaline Phosphatase 61 Lactate Dehydrogenase 361 H Total Protein 5.8 L Albumin 2.5 L Globulin 3.3 Albumin/Globulin Ratio 0.8 L Triglycerides 89 11/15/20 10:17 WBC RBC Hgb Hct MCV MCH MCHC RDW Plt Count MPV Neut % (Auto) Lymph % (Auto) [place] % (Auto) Eos % (Auto) Baso % (Auto) Lymph # (Auto) [place] # (Auto) Eos # (Auto) Baso # (Auto) Absolute Neutrophils Sodium 144 Potassium 4.2 Chloride 111 H Carbon Dioxide 25 Anion Gap 8.0 BUN 29 H Creatinine 1.3 H GFR Calculation 52 Glucose 155 H Uric Acid 6.1 Calcium 8.4 L Phosphorus 2.5 Magnesium 2.1 Total Bilirubin 0.6 Direct Bilirubin < 0.2 GGT 86 H AST 33 ALT 18 Alkaline Phosphatase 57 Lactate Dehydrogenase 465 H Total Protein 6.1 Albumin 2.5 L Globulin 3.6 Albumin/Globulin Ratio 0.7 L Triglycerides 179 H Discharge Plan Patient/Caregiver Discharge Instructions Activity: increase activity as tolerated Diet: Dysphagia Level 4 Pureed Foods Instructions: Atorvastatin (By mouth), Rivaroxaban (By mouth), Acute Kidney Injury (DC), Aspiration Pneumonia (DC), Ischemic Stroke (DC) Activity Restrictions/Additional Instructions: Follow-up with speech therapy, PT, OT. -Continue rivaroxaban/aspirin/dysphagia diet/statin/physical therapies as indicated. -Outpatient follow-up with urology in 5 to 7 days/continued straight cath if urine retention noted more than 250 cc on bladder scan. -Maintain aspiration precautions, continue level 5 minced diet/thick liquids per ST/upright positioning -Continue Xarelto for stroke prophylaxis in the setting of A-fib. This discharge packet is provided to you to help keep you informed about your care. We want to ensure you get everything you need when you go home. You will also be receiving a call from us in a few days to follow up with you and see how you are doing since your discharge. This gives us a chance to listen to any concerns you maybe experiencing since you were discharged or any additional needs you may have, as well as providing us feedback on your care experience. We strive to always provide excellent care and thank you for your feedback and for choosing [facility]. Prescriptions: New atorvastatin 40 mg Tablet 80 mg PO HS Qty: 60 RF: 0 Xarelto 15 mg Tablet 15 mg PO QPMCC Qty: 30 RF: 0 Continued (DME) pen needle, diabetic [Easy Comfort Pen Cullen] 33 gauge x 5/32" needle See Rx Instructions .ROUTE .MEDSUPPLY Qty: 100 RF: 5 (DME) insulin syr/ndl U100 half jose 0.5 mL 31 gauge x 5/16" syringe See Rx Instructions .ROUTE .MEDSUPPLY Qty: 100 RF: 12 losartan-hydrochlorothiazide 100-25 mg tablet 1 tab PO QDAY Qty: 90 RF: 1 metoprolol succinate 25 mg tablet extended release 24 hr 25 mg PO .Q HS Qty: 90 RF: 0 (DME) blood-glucose meter [FreeStyle Lite Meter] Kit See Rx Instructions .ROUTE .MEDSUPPLY Qty: 1 RF: 0 (DME) FreeStyle Lite Strips Strip See Rx Instructions .ROUTE .MEDSUPPLY Qty: 100 RF: 6 aspirin [Adult Aspirin Regimen] 81 mg tablet,delayed release (DR/EC) 81 mg PO QDAY RF: 0 omega-3 fatty acids [Fish Oil Concentrate] 1,000 mg capsule 1,000 mg PO QDAY RF: 0 tamsulosin [Flomax] 0.4 mg capsule 0.8 mg PO HS RF: 0 (DME) BD Insulin Syringe U-500 1/2 mL 31 gauge x 15/64" syringe See Rx Instructions .ROUTE .MEDSUPPLY Qty: 100 RF: 0 (DME) True Metrix Glucose Test Strip Strip See Rx Instructions .ROUTE .MEDSUPPLY Qty: 100 RF: 11 furosemide 40 mg tablet 40 mg PO QDAY PRN (Reason: edema) RF: 0 amlodipine 5 mg tablet 5 mg PO BID RF: 0 No Action Novolog Flexpen U-100 Insulin 100 unit/mL (3 mL) insulin pen See Rx Instructions SUB-Q .COMPLEX MDD 80 Qty: 15 RF: 3 Novolin 70-30 FlexPen U-100 100 unit/mL (70-30) insulin pen See Rx Instructions .ROUTE .COMPLEX 30 Days Qty: 3 RF: 6 Other Ambulatory Orders: OT Discharge Order (Routine) Location: None Selected Ordered By: Bharath Kent Physical Therapy at Discharge - General (Routine) Location: None Selected Ordered By: Bharath Kent ST Discharge Order (Routine) Location: None Selected Ordered By: Bharath Kent Follow Up Plan Follow up with: Kelvin Yu MD [Primary Care Provider] - (Please call and schedule a hospital follow up appointment.) Patient Disposition: Xfer SNF Prognosis: Undetermined Rehab Potential: Fair I certify that the patient requires SNF services: Yes Overall status at discharge: patient is not back to baseline Discharge Orders: Discharge Order (Routine); Ordered 11/16/20 Ordered By: Bharath Kent Discharge Comment: Pt. d/c to [facility] with transport [facility] Deep Vein Thrombosis/Pulmonary Embolism Present on Admission: No
== END 2020-11-16 12:15 | DRG 64 ==
LOC: ED 09:09 → ICU 15:25 → MEDSUR 11-08 16:32
PROVIDERS: ADMIT Internal Medicine; ATTEND Internal Medicine

== ENCOUNTER 2020-11-27 11:00 | Inpatient (IN) ==
[2020-11-27] MEDS ORDERED: LACTATED RINGERS 1,000 ML IV ONE (11:12)
[2020-11-27] MEDS ORDERED: 0.9 % SODIUM CHLORIDE 1,000 ML IV ONE (11:28)
--- NOTE | 2020-11-27 11:47 | XRay Report ---
CLINICAL INFORMATION: ams COMPARISON: 11/07/2020 FINDINGS: Borderline cardiomegaly has decreased. Mediastinum and pulmonary vessels are normal. Bilateral infiltrates have resolved since the comparison exam three weeks ago. There is now only minimal left basilar atelectasis. Left diaphragm mildly elevated. No effusion IMPRESSION: Interval resolution in bilateral infiltrates. Interpreted and Authenticated by: Cory Garcia 11/27/20
--- NOTE | 2020-11-27 11:59 | Cat Scan Report ---
CLINICAL INFORMATION: Altered mental status. Found unresponsive COMPARISON: 11/06/2020 TECHNIQUE: 2.5 mm helical slices were obtained in the skull base to vertex. Following reconstruction, axial reformatted images were reviewed at bone and parenchymal windows. The exam was performed using radiation dose optimization techniques including, but not limited to, automated exposure control, adjustment of the mA and/or kV according to patient size and use of iterative reconstruction technique. FINDINGS: The ventricles, sulci, fissures, and cisterns are enlarged compatible moderate atrophy. Moderate old cortical-based infarct in the right frontoparietal region is unchanged. Mild patchy chronic ischemic changes in the cerebral white matter expected for age stable. On today's examination, low-attenuation is seen throughout the cerebellar vermis suggesting inflammation or edema related to acute infarct. No intracerebral hemorrhage. Overlying right frontoparietal craniotomy defect seen as before. Bone windows show no other osseous abnormality. IMPRESSION: Moderate old infarct in the right frontoparietal junction-stable. Mild atrophy and chronic ischemic changes throughout white matter, expected for age, are also stable. Moderate edema throughout the cerebellar vermis is new from the prior exam. This could represent ischemia or inflammation. Consider brain MRI/ MRA if clinically indicated Interpreted and Authenticated by: Cory Garcia 11/27/20
[2020-11-27 12:18] LABS: Basophils # (Auto) 0.05 K/mcL (0.00-0.20); Basophils % (Auto) 0.4 % (0.0-2.0); Eosinophils # (Auto) 0.11 K/mcL (0.00-0.70); Hematocrit 45.5 % (41.0-55.0); Hemoglobin 15.2 g/dL (13.5-16.5); Lymphocytes # (Auto) 1.72 K/mcL (1.50-4.80); Lymphocytes % (Auto) 15.3 % (15.0-49.0); Mean Cell Volume 97.6 fL (80.0-100.0); Mean Corpuscular HGB Conc 33.4 g/dL (31.0-36.0); Mean Platelet Volume 8.7 fL (7.4-10.4); Monocytes # (Auto) 0.76 K/mcL (0.10-0.90); Monocytes % (Auto) 6.7 % (1.0-12.0); Neutrophils % (Auto) 76.6 % (38.0-78.0); Platelet Count 329 K/mcL (140-440); RBC 4.66 M/mcL (4.50-5.90); Red Cell Distribution Width 12.9 % (11.5-14.5); WBC 11.3 K/mcL (4.5-11.0)
--- NOTE | 2020-11-27 12:42 | Emergency Department Note ---
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 He had previously been seen with slurred speech weakness. He was admitted in the past several weeks with plan for MRI but I do not see that it has occurred. It sounds as though patient has again slurred speech and weakness and presents today with the ongoing symptoms which have been intermittent over the last weeks to months. Patient's at the bedside notes that he is simply worse since yesterday. He has had ongoing bladder catheterization since his previous hospitalization. He eats pured foods as well as thickened liquids Related Data Home Medications Medication Instructions Recorded Confirmed aspirin 81 mg tablet,delayed 81 mg PO QDAY 02/13/18 11/27/20 release omega-3 fatty acids 1,000 mg 1,000 mg PO QDAY 02/13/18 11/27/20 capsule insulin U-500 syringe-needle 07/15 #100 each 10/05/19 11/27/20 mL 31 gauge x 15/64" tamsulosin 0.4 mg capsule 0.8 mg PO HS 10/05/19 11/27/20 amlodipine 5 mg PO BID 11/06/20 11/27/20 acetaminophen 650 mg PO Q4H PRN 11/27/20 11/27/20 nystatin 1 applic TOPICAL BID 11/27/20 11/27/20 Previous Rx's Medication Instructions Recorded insulin syr/ndl U100 half jose 0.5 #100 each 07/28/19 mL 31 gauge x 5/16" pen needle, diabetic 33 gauge x #100 each 06/06/20 5/32" insulin NPH-regular 70-30 U-100 See Rx Instructions .ROUTE 07/19/20 insulin 100 unit/mL subcutaneous .COMPLEX 30 Days #3 ml pen losartan 100 1 tab PO QDAY #90 tab 08/15/20 mg-hydrochlorothiazide 25 mg tablet metoprolol succinate 25 mg 25 mg PO .Q HS #90 tab 08/17/20 tablet,extended release 24 hr blood-glucose meter #1 ea 10/02/20 blood sugar diagnostic #100 ea 10/04/20 blood sugar diagnostic #100 ea 10/27/20 insulin aspart U-100 100 unit/mL See Rx Instructions SUB-Q .COMPLEX 11/01/20 (3 mL) subcutaneous pen #15 ml MDD 80 atorvastatin 80 mg PO HS #60 tab 11/08/20 rivaroxaban [Xarelto] 15 mg PO QPMCC #30 tab 11/16/20 Allergies Allergy/AdvReac Type Severity Reaction Status Date / Time nabumetone [From RELAFEN] AdvReac Mild BLISTERS Verified 11/07/20 07:40 Review of Systems ROS ROS Narrative: Narrative: Patient is unable to verbalize any further history or review of systems PFSH Narrative Patient History Narrative: Narrative: Medical/Surgical/Family History All Active Problems (Updated 11/27/20 @ 20:40 by Lon Maurer MD) Callus of foot (Chronic) Dry eye syndrome (Chronic) Hyperlipidemia (Chronic) 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) Hypertension (Chronic) Enlarged prostate with lower urinary tract symptoms (LUTS) (Chronic) Other fatigue (Chronic) Hearing loss (Chronic) Arthritis (Chronic) Strain of muscle(s) and tendon(s) of the rotator cuff of right shoulder, initial encounter (Chronic) Abrasion, left lower leg, sequela (Chronic) Encounter for long-term (current) use of insulin (Chronic) Prostatic hypertrophy (Chronic) Plantar fasciitis of left foot (Chronic) Fatigue (Chronic) Preventative health care (Chronic) Generalized headaches (Chronic) GERD (gastroesophageal reflux disease) (Chronic) Heart murmur (Chronic) Cortical cataract (Chronic) Nuclear sclerotic cataract (Chronic) Diabetic eye exam (Chronic 02/03/19) H/O sigmoidoscopy (Chronic ~1995) Medicare annual wellness visit, subsequent (Acute) Blister (Acute) Ulcer of right leg (Acute) Ulcer of left lower leg (Acute) Hypertension (Acute) Edema due to congestive heart failure (Acute) Fall (Acute) Injury of shoulder, right (Acute) Finger sprain (Acute) Fever (Acute) Concussion (Acute) Brain neoplasm (Acute) Mary Kate infection of genital region (Acute) Dysarthria (Acute) Ataxia (Acute) Uncontrolled diabetes mellitus (Acute) Acute ischemic stroke (Acute) Aspiration pneumonia (Acute) Hypernatremia (Acute) Stage 1 acute kidney injury (Acute) Atrial fibrillation (Acute) ARF (acute renal failure) (Acute) Benign prostatic hyperplasia with urinary retention (Acute) Urinary retention (Acute) Altered mental status (Acute) Hypoglycemia (Acute) Medical History (Updated 11/27/20 @ 20:40 by Lon Maurer MD) Abrasion, left lower leg, sequela Arthritis Callus of foot Cortical cataract Diabetic eye exam (02/03/19) Vision source- no retinopathy Dry eye syndrome Encounter for long-term (current) use of insulin Enlarged prostate with lower urinary tract symptoms (LUTS) Fatigue Generalized headaches GERD (gastroesophageal reflux disease) H/O sigmoidoscopy (~1995) Hearing loss Hearing loss of both ears Heart murmur Hyperlipidemia Hypertension Nuclear sclerotic cataract Other fatigue Plantar fasciitis of left foot Preventative health care Prostatic hypertrophy with obstruction Strain of muscle(s) and tendon(s) of the rotator cuff of right shoulder, initial encounter Type 2 diabetes mellitus with autonomic neuropathy He has underlying CKD G2 A3 which most likely was from longstanding diabetes evidenced by proteinuria Prior to admission he had no evidence of a decrement in his GFR, no exposure to ROMERO inhibitors or ARB, no nonsteroidal anti-inflammatories Surgical History History of hernia repair (~1995) Right- Dr Randle in [place] History of left cataract extraction (04/24/17) History of total left knee replacement (~2010) Dr Yung History of total right knee replacement (~2006) Dr Yung Hx of right cataract extraction (04/15/17) Hx of right inguinal hernia repair (~1995) Family History Mother , 85 d/t stroke Thyroid disease Stroke Arthritis Father , 79 Reason not listed Alcoholism Pacemaker Social History Smoking Status: Never smoker Alcohol Intake Frequency: does not drink Substance Use: does not use Exam Narrative Narrative: Narrative: General: Awake chronically ill male who is making humming mumbling type sounds but no other verbalize words. It is unclear whether he is recognizing people talking within the room. He is not following commands. He is accompanied by his supportive . HEENT: NCAT, evidence of prior bilateral cataract surgeries. Pupils are myotic, Oral pharynx with dry mucus membranes. No pharyngeal erythema. No conjunctival pallor Neck: Supple, No lymphadenopathy Chest: Stable Heart: Regular rate Lungs: Coarse airway sounds bilaterally with difficulty in ascertaining parenchymal lung sounds Abdomen: Soft, nondistended, nontender : No bladder distention, Martins catheter in place draining yellow urine Back: Nontraumatic, No CVA tenderness to palpation. Skin: No rash or lesion Extremity: No cyanosis, 1+ bilateral lower extremity edema, pulses 1+ radial Neurologic: Patient is moving the upper extremities. There seems to be a bit of a tremor and he is not following commands so with difficulty in ascertaining strength. He is with some facial tremors which do not appear to be seizure. As noted he has mumbling or slurred speech but it is difficult whether he is actually responding to questions. He will move all 4 extremities but there seems to be profound generalized weakness essentially 3-4 out of 5 in all 4 extremities. General Limitations: no limitations Course Vital Signs Vital signs: Vital Signs Temperature 97.4 F 11/27/20 11:01 Pulse Rate 58 L 11/27/20 11:01 Respiratory Rate 22 11/27/20 11:01 Blood Pressure 138/74 11/27/20 11:01 Pulse Oximetry (%) 100 11/27/20 11:01 Temperature 98.0 F 11/27/20 19:34 Pulse Rate 76 11/27/20 19:34 Respiratory Rate 24 H 11/27/20 19:34 Blood Pressure 140/76 11/27/20 19:34 Pulse Oximetry (%) 95 11/27/20 19:34 [facility] MDM Narrative Medical decision making narrative: Narrative: Further history is gained that patient was actually with a low blood sugar at the care facility and was given glucagon and oral glucose in route. I did not get this initial report and unfortunately during the stay patient was with further decrease in his mental status. He had just returned from head CT and the head CT had shown some degree of edema in the cerebellum. This change in mentation did prompt me to order MRI and MRA. Patient had been with initial blood sugar which was appropriate after arrival. Given his sudden decrease in mentation blood glucose was checked and unfortunately was at a lower level. Patient improved to a degree with glucose IV and was placed on 5% dextrose in half-normal saline. Unfortunately he is still with generalized weakness and difficult to understand speech. His MRI and MRI did confirm acute stroke which is new since his last visit. Patient is requiring further care and in addition has been with recurrent episodes of hypoglycemia requiring the IV dextrose. At this time he is with plan for admission and further care. Given the lack of definitive onset of his stroke symptoms as well as the appearance of edema on the CT, I do not feel that he is appropriate for aggressive intervention and in fact when interventions were discussed with family, patient and family do not want any aggressive stroke type treatments. They will be considering desired level of care and potential for placement or consideration of comfort care or hospice as he goes forward but at the current time they do want him treated for the hypoglycemic episodes and to evaluate for evolving stroke symptoms. Critical CARE time: I have spent 50 minutes in the evaluation diagnosis and regiment of treatment and disposition this patient with altered mental status and unfortunate finding of recurrent cerebrovascular accident. Lab Data Result diagrams: 11/27/20 11:25 11/27/20 11:25 Labs: Lab Results 11/27/20 11/27/20 11/27/20 Range/Units 11:25 11:25 11:25 WBC 11.3 H (4.5-11.0) K/mcL RBC 4.66 (4.50-5.90) M/mcL Hgb 15.2 (13.5-16.5) g/dL Hct 45.5 (41.0-55.0) % MCV 97.6 (80.0-100.0) fL MCH 32.6 (26.0-34.0) pg MCHC 33.4 (31.0-36.0) g/dL RDW 12.9 (11.5-14.5) % Plt Count 329 (140-440) K/mcL MPV 8.7 (7.4-10.4) fL Neut % (Auto) 76.6 (38.0-78.0) % Lymph % (Auto) 15.3 (15.0-49.0) % [place] % (Auto) 6.7 (1.0-12.0) % Eos % (Auto) 1.0 (0.0-7.0) % Baso % (Auto) 0.4 (0.0-2.0) % Lymph # (Auto) 1.72 (1.50-4.80) K/mcL [place] # (Auto) 0.76 (0.10-0.90) K/mcL Eos # (Auto) 0.11 (0.00-0.70) K/mcL Baso # (Auto) 0.05 (0.00-0.20) K/mcL Absolute Neutrophils 8.63 H (1.80-8.00) K/mcL Sodium 139 (133-145) mmol/L Potassium 3.6 (3.3-5.1) mmol/L Chloride 102 (96-108) mmol/L Carbon Dioxide 29 (22-30) mmol/L Anion Gap 8.0 (8.0-16.0) BUN 22 (8-23) mg/dL Creatinine 1.2 (0.7-1.2) mg/dL GFR Calculation 57 Glucose 115 H (70-105) mg/dL Calcium 8.8 (8.6-10.4) mg/dL Total Bilirubin 0.5 (0.1-1.0) mg/dL AST 39 (<40) U/L ALT 25 (<40) U/L Alkaline Phosphatase 97 (39-117) U/L Ammonia 30 (16-60) umol/L Troponin T (<0.03) ng/mL Total Protein 7.0 (5.9-8.4) gm/dL Albumin 2.8 L (3.2-5.2) gm/dL Globulin 4.2 H (2.2-3.7) gm/dL Albumin/Globulin Ratio 0.7 L (1.0-2.3) Urine Color Urine Appearance (Clear) Urine pH (5.0-9.0) Ur Specific [place] (1.000-1.035) Urine Protein (Negative) mg/dL Urine Glucose (UA) (Negative) mg/dL Urine Ketones (Negative) mg/dL Urine Occult Blood (Negative) mg/dL Urine Nitrate (Negative) Urine Bilirubin (Negative) mg/dL Urine Urobilinogen mg/dL Ur Leukocyte Esterase (Negative) /ug Urine RBC (0-3) /hpf Urine WBC (0-4) /hpf Ur Squamous Epith Cells (0-4) /hpf Urine Bacteria (0) /hpf Urine Mucus (None) /hpf Ur Culture Indicated? Ethyl Alcohol (<0.010) gm/dL 11/27/20 11/27/20 11/27/20 Range/Units 11:25 11:25 15:43 WBC (4.5-11.0) K/mcL RBC (4.50-5.90) M/mcL Hgb (13.5-16.5) g/dL Hct (41.0-55.0) % MCV (80.0-100.0) fL MCH (26.0-34.0) pg MCHC (31.0-36.0) g/dL RDW (11.5-14.5) % Plt Count (140-440) K/mcL MPV (7.4-10.4) fL Neut % (Auto) (38.0-78.0) % Lymph % (Auto) (15.0-49.0) % [place] % (Auto) (1.0-12.0) % Eos % (Auto) (0.0-7.0) % Baso % (Auto) (0.0-2.0) % Lymph # (Auto) (1.50-4.80) K/mcL [place] # (Auto) (0.10-0.90) K/mcL Eos # (Auto) (0.00-0.70) K/mcL Baso # (Auto) (0.00-0.20) K/mcL Absolute Neutrophils (1.80-8.00) K/mcL Sodium (133-145) mmol/L Potassium (3.3-5.1) mmol/L Chloride (96-108) mmol/L Carbon Dioxide (22-30) mmol/L Anion Gap (8.0-16.0) BUN (8-23) mg/dL Creatinine (0.7-1.2) mg/dL GFR Calculation Glucose (70-105) mg/dL Calcium (8.6-10.4) mg/dL Total Bilirubin (0.1-1.0) mg/dL AST (<40) U/L ALT (<40) U/L Alkaline Phosphatase (39-117) U/L Ammonia (16-60) umol/L Troponin T 0.02 (<0.03) ng/mL Total Protein (5.9-8.4) gm/dL Albumin (3.2-5.2) gm/dL Globulin (2.2-3.7) gm/dL Albumin/Globulin Ratio (1.0-2.3) Urine Color Yellow Urine Appearance Clear (Clear) Urine pH 7.0 (5.0-9.0) Ur Specific [place] 1.012 (1.000-1.035) Urine Protein 100 A (Negative) mg/dL Urine Glucose (UA) 50 A (Negative) mg/dL Urine Ketones Negative (Negative) mg/dL Urine Occult Blood Negative (Negative) mg/dL Urine Nitrate Negative (Negative) Urine Bilirubin Negative (Negative) mg/dL Urine Urobilinogen 4.0 A mg/dL Ur Leukocyte Esterase Negative (Negative) /ug Urine RBC 12 H (0-3) /hpf Urine WBC 2 (0-4) /hpf Ur Squamous Epith Cells 0 (0-4) /hpf Urine Bacteria None (0) /hpf Urine Mucus Few A (None) /hpf Ur Culture Indicated? No Ethyl Alcohol < 0.010 (<0.010) gm/dL ED POC Tests ED POC Tests: EDWARD - SARS Antigen Negative Discharge Plan Patient/Caregiver Discharge Instructions Pt seen by DIRECTOR OF STRATEGIC INITIATIVES/PA only: No Clinical Impression: Acute ischemic stroke, Altered mental status, Hypoglycemia Patient Disposition: Xfer As Inpt ([facility]) Condition: Serious Discharge Date/Time: 11/27/20 19:25
[2020-11-27 12:48] LABS: ALT/SGPT 25 U/L (<40); AST/SGOT 39 U/L (<40); Albumin 2.8 gm/dL (3.2-5.2); Albumin/Globulin Ratio 0.7 (1.0-2.3); Alkaline Phosphatase 97 U/L (39-117); Bilirubin,Total 0.5 mg/dL (0.1-1.0); Blood Urea Nitrogen 22 mg/dL (8-23); Calcium 8.8 mg/dL (8.6-10.4); Carbon Dioxide 29 mmol/L (22-30); Chloride 102 mmol/L (96-108); Globulin 4.2 gm/dL (2.2-3.7); Glomerular Filtration Rate 57; Glucose 115 mg/dL (70-105)
[2020-11-27 12:50] LABS: Alcohol, Blood < 10.0 mg/dL; Alcohol,Blood < 0.010 gm/dL (<0.010)
[2020-11-27] MEDS ORDERED: DEXTROSE 50% 50 ML SYRINGE IV ONE (13:40)
[2020-11-27] MEDS ORDERED: DEXTROSE 5%-NS 1,000 ML IV SCH (13:45)
--- NOTE | 2020-11-27 13:55 | Magnetic Resonance Report ---
CLINICAL INFORMATION: slurred speech, altered mental status. COMPARISON: Head CT 11/27/2020 TECHNIQUE: Sagittal T1 FLAIR, axial T2 FLAIR, diffusion ADC images were acquired FINDINGS: The ventricles, sulci, fissures and cisterns are symmetrically enlarged compatible with mild age-related atrophy-no extra-axial fluid collection or mass appreciated. Moderate remote cortical-based infarct in the right frontal parietal junction again noted. A moderate region of restricted diffusion involving the superior cerebellar vermis is compatible with acute nonhemorrhagic infarct. IMPRESSION: Moderate acute nonhemorrhagic infarct involving the superior cerebellar vermis. This would typically be due to thrombus in the basilar tip extends with extension to the the superior cerebellar arteries. Consider: CT cerebral angiogram Moderate remote cortical-based infarct right frontoparietal junction. Interpreted and Authenticated by: Cory Garcia 11/27/20
--- NOTE | 2020-11-27 15:08 | Magnetic Resonance Report ---
CLINICAL INFORMATION: Acute superior cerebellar vermis infarct COMPARISON: None. TECHNIQUE: 3D [id number] SPGR was used to study the cerebral vasculature. FINDINGS: There is scattered atherosclerotic plaque in both intracranial internal carotid, vertebral, basilar and anterior middle and posterior cerebral arteries. There is; however, no evidence of occlusion or definite evidence of significant stenoses. The top of the basilar and the superior cerebellar arteries are patent. IMPRESSION: Negative exam. No evidence of thrombus in the superior cerebellar or basilar arteries. Presumably, patient did have thrombus or embolus which is already thrombolyzed. Interpreted and Authenticated by: Cory Garcia 11/27/20
[2020-11-27] MEDS ORDERED: DEXTROSE 5%-1/2NS 1,000 ML IV SCH (15:45)
[2020-11-27 16:23] LABS: Appearance,Urine CLEAR (Clear); Bilirubin,Urine Negative (Negative); Color,Urine YELLOW; Culture Indicated,Urine No; Glucose,Urine (UA) 50 mg/dL (Negative); Ketones,Urine Negative (Negative); Leukocyte Esterase,Urine Negative /ug (Negative); Mucus,Urine FEW /hpf; Nitrate,Urine Negative (Negative); Protein,Urine 100 mg/dL (Negative); Specific Gravity,Urine 1.012 (1.000-1.035); Urine Blood Negative (Negative); Urine RBC 12 /hpf (0-3); Urine Squamous Epithelial Cell 0 /hpf (0-4); Urine WBC 2 /hpf (0-4)
--- NOTE | 2020-11-27 18:06 | Internal Med History&Physical ---
HPI History of Present Illness Patient information: Note initiated : 11/27/20 at 6:02 pm Service Date, if different from initiated Date: [] Patient: Robert Caballero a 80 y/o M admitted on for altered loc. Chief Complaint: [] History of present illness: Mr. Caballero is a 80 year old M Was recently mated for stroke was found to be unresponsive at the care facility today. He had a blood glucose of 50. In the ED he had blood glucose of 20. He was put on a dextrose drip. He was had dramatic improvement in his mentation with elevation in his blood glucose. 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 Patient has been significantly declining since the stroke and June especially since the most recent one. Patient was also most made comfort care last admission. Patient has been essentially bedbound. Speech is poor and worsened today with the acute stroke. Had a long discussion with the and the daughter and they would like to transition to comfort care at this time. Unable to gather review of systems given incomprehensible verbalizations. 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) Hypertension (Chronic) Enlarged prostate with lower urinary tract symptoms (LUTS) (Chronic) Other fatigue (Chronic) Hearing loss (Chronic) Arthritis (Chronic) Strain of muscle(s) and tendon(s) of the rotator cuff of right shoulder, initial encounter (Chronic) Abrasion, left lower leg, sequela (Chronic) Encounter for long-term (current) use of insulin (Chronic) Prostatic hypertrophy (Chronic) Plantar fasciitis of left foot (Chronic) Fatigue (Chronic) Preventative health care (Chronic) Generalized headaches (Chronic) GERD (gastroesophageal reflux disease) (Chronic) Heart murmur (Chronic) Cortical cataract (Chronic) Nuclear sclerotic cataract (Chronic) Diabetic eye exam (Chronic 02/03/19) H/O sigmoidoscopy (Chronic ~1995) Medicare annual wellness visit, subsequent (Acute) Blister (Acute) Ulcer of right leg (Acute) Ulcer of left lower leg (Acute) Hypertension (Acute) Edema due to congestive heart failure (Acute) Fall (Acute) Injury of shoulder, right (Acute) Finger sprain (Acute) Fever (Acute) Concussion (Acute) Brain neoplasm (Acute) Mary Kate infection of genital region (Acute) Dysarthria (Acute) Ataxia (Acute) Uncontrolled diabetes mellitus (Acute) Acute ischemic stroke (Acute) Aspiration pneumonia (Acute) Hypernatremia (Acute) Stage 1 acute kidney injury (Acute) Atrial fibrillation (Acute) ARF (acute renal failure) (Acute) Benign prostatic hyperplasia with urinary retention (Acute) Urinary retention (Acute) Medical History (Updated 11/16/20 @ 17:55 by Clement Lopez MD) Abrasion, left lower leg, sequela Arthritis Callus of foot Cortical cataract Diabetic eye exam (02/03/19) Vision source- no retinopathy Dry eye syndrome Encounter for long-term (current) use of insulin Enlarged prostate with lower urinary tract symptoms (LUTS) Fatigue Generalized headaches GERD (gastroesophageal reflux disease) H/O sigmoidoscopy (~1995) Hearing loss Hearing loss of both ears Heart murmur Hyperlipidemia Hypertension Nuclear sclerotic cataract Other fatigue Plantar fasciitis of left foot Preventative health care Prostatic hypertrophy with obstruction Strain of muscle(s) and tendon(s) of the rotator cuff of right shoulder, initial encounter Type 2 diabetes mellitus with autonomic neuropathy He has underlying CKD G2 A3 which most likely was from longstanding diabetes evidenced by proteinuria Prior to admission he had no evidence of a decrement in his GFR, no exposure to ROMERO inhibitors or ARB, no nonsteroidal anti-inflammatories Surgical History History of hernia repair (~1995) Right- Dr Randle in [place] History of left cataract extraction (04/24/17) History of total left knee replacement (~2010) Dr Yung History of total right knee replacement (~2006) Dr Yung Hx of right cataract extraction (04/15/17) Hx of right inguinal hernia repair (~1995) Family History Mother , 85 d/t stroke Thyroid disease Stroke Arthritis Father , 79 Reason not listed Alcoholism Pacemaker Social History 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 physical activity: none alcohol intake frequency: does not drink substance use type: does not use seatbelt use: sometimes MEDS/ALLERGIES Home Medications and Allergies Home Medications Medication Instructions Recorded Confirmed Type aspirin 81 mg tablet,delayed 81 mg PO QDAY 02/13/18 11/27/20 History release omega-3 fatty acids 1,000 mg 1,000 mg PO QDAY 02/13/18 11/27/20 History capsule insulin syr/ndl U100 half jose 0.5 #100 each 07/28/19 11/27/20 Rx mL 31 gauge x 5/16" insulin U-500 syringe-needle 1/2 #100 each 10/05/19 11/27/20 History mL 31 gauge x 15/64" tamsulosin 0.4 mg capsule 0.8 mg PO HS 10/05/19 11/27/20 History pen needle, diabetic 33 gauge x #100 each 06/06/20 11/27/20 Rx 32" insulin NPH-regular 70-30 U-100 See Rx Instructions .ROUTE 07/19/20 11/27/20 Rx insulin 100 unit/mL subcutaneous .COMPLEX 30 Days #3 ml pen losartan 100 1 tab PO QDAY #90 tab 08/15/20 11/27/20 Rx mg-hydrochlorothiazide 25 mg tablet metoprolol succinate 25 mg 25 mg PO .Q HS #90 tab 08/17/20 11/27/20 Rx tablet,extended release 24 hr blood-glucose meter #1 ea 10/02/20 11/27/20 Rx blood sugar diagnostic #100 ea 10/04/20 11/27/20 Rx blood sugar diagnostic #100 ea 10/27/20 11/27/20 Rx insulin aspart U-100 100 unit/mL See Rx Instructions SUB-Q .COMPLEX 11/01/20 11/27/20 Rx (3 mL) subcutaneous pen #15 ml MDD 80 amlodipine 5 mg PO BID 11/06/20 11/27/20 History atorvastatin 80 mg PO HS #60 tab 11/08/20 11/27/20 Rx rivaroxaban [Xarelto] 15 mg PO QPMCC #30 tab 11/16/20 11/27/20 Rx acetaminophen 650 mg PO Q4H PRN 11/27/20 11/27/20 History nystatin 1 applic TOPICAL BID 11/27/20 11/27/20 History Allergies Allergy/AdvReac Type Severity Reaction Status Date / Time nabumetone [From RELAFEN] AdvReac Mild BLISTERS Verified 11/07/20 07:40 EXAM Constitutional Vitals: Temp Pulse Resp BP Pulse Ox 97.4 F 72 17 143/97 95 11/27/20 11:29 11/27/20 17:31 11/27/20 15:52 11/27/20 17:31 11/27/20 17:31 Exam: General: Alert, Awake, No acute Distress Eyes/N/T: EOMI, PERRL, Head/Neck: neck supple, normocephalic atraumatic CV: RRR, No murmurs, normal s1/s2 Pulm: Clear b/l, no wheezing/rhonchi/rales Abd: soft, nontender, +BS x4 Ext: no clubbing/cyanosis/edema Neuro: chronic left upper extremity weakness mild although near symmetrical left side lower extremity strength appears symmetrical, dysarthria present. follows commands. Skin: warm/dry DATA Data Completed and Pending Labs: Labs from last 24 hours 11/27/20 11/27/20 11/27/20 15:43 15:43 11:25 WBC RBC Hgb Hct MCV MCH MCHC RDW Plt Count MPV Neut % (Auto) Lymph % (Auto) Pratt % (Auto) Eos % (Auto) Baso % (Auto) Lymph # (Auto) Pratt # (Auto) Eos # (Auto) Baso # (Auto) Absolute Neutrophils Sodium Potassium Chloride Carbon Dioxide Anion Gap BUN Creatinine GFR Calculation Glucose Calcium Total Bilirubin AST ALT Alkaline Phosphatase Ammonia Troponin T Total Protein Albumin Globulin Albumin/Globulin Ratio Urine Color Yellow Urine Appearance Clear Urine pH 7.0 Ur Specific [place] 1.012 Urine Protein 100 A Urine Glucose (UA) 50 A Urine Ketones Negative Urine Occult Blood Negative Urine Nitrate Negative Urine Bilirubin Negative Urine Urobilinogen 4.0 A Ur Leukocyte Esterase Negative Urine RBC 12 H Urine WBC 2 Ur Squamous Epith Cells 0 Urine Bacteria None Urine Mucus Few A Ur Culture Indicated? No Urine Opiates Screen Pending Ur Opiates Confirm Pending Ur Oxycodone Screen Pending Urine Methadone Screen Pending Ur Methadone Confirm Pending Ur Barbiturates Screen Pending Ur Barbiturate Confirm Pending Ur Phencyclidine Scrn Pending Urine PCP Confirm Pending Ur Amphetamines Screen Pending U Amphetamines Confirm Pending U Benzodiazepines Scrn Pending U Benzodiazepine Confm Pending Urine Cocaine Screen Pending Urine Cocaine Confirm Pending U Cannabinoids Confirm Pending U Marijuana (THC) Screen Pending Ethyl Alcohol < 0.010 05/17/21 05/17/21 05/17/21 11:25 11:25 11:25 WBC RBC Hgb Hct MCV MCH MCHC RDW Plt Count MPV Neut % (Auto) Lymph % (Auto) Pratt % (Auto) Eos % (Auto) Baso % (Auto) Lymph # (Auto) Pratt # (Auto) Eos # (Auto) Baso # (Auto) Absolute Neutrophils Sodium 139 Potassium 3.6 Chloride 102 Carbon Dioxide 29 Anion Gap 8.0 BUN 22 Creatinine 1.2 GFR Calculation 57 Glucose 115 H Calcium 8.8 Total Bilirubin 0.5 AST 39 ALT 25 Alkaline Phosphatase 97 Ammonia 30 Troponin T 0.02 Total Protein 7.0 Albumin 2.8 L Globulin 4.2 H Albumin/Globulin Ratio 0.7 L Urine Color Urine Appearance Urine pH Ur Specific [place] Urine Protein Urine Glucose (UA) Urine Ketones Urine Occult Blood Urine Nitrate Urine Bilirubin Urine Urobilinogen Ur Leukocyte Esterase Urine RBC Urine WBC Ur Squamous Epith Cells Urine Bacteria Urine Mucus Ur Culture Indicated? Urine Opiates Screen Ur Opiates Confirm Ur Oxycodone Screen Urine Methadone Screen Ur Methadone Confirm Ur Barbiturates Screen Ur Barbiturate Confirm Ur Phencyclidine Scrn Urine PCP Confirm Ur Amphetamines Screen U Amphetamines Confirm U Benzodiazepines Scrn U Benzodiazepine Confm Urine Cocaine Screen Urine Cocaine Confirm U Cannabinoids Confirm U Marijuana (THC) Screen Ethyl Alcohol 11/27/20 11:25 WBC 11.3 H RBC 4.66 Hgb 15.2 Hct 45.5 MCV 97.6 MCH 32.6 MCHC 33.4 RDW 12.9 Plt Count 329 MPV 8.7 Neut % (Auto) 76.6 Lymph % (Auto) 15.3 Pratt % (Auto) 6.7 Eos % (Auto) 1.0 Baso % (Auto) 0.4 Lymph # (Auto) 1.72 Pratt # (Auto) 0.76 Eos # (Auto) 0.11 Baso # (Auto) 0.05 Absolute Neutrophils 8.63 H Sodium Potassium Chloride Carbon Dioxide Anion Gap BUN Creatinine GFR Calculation Glucose Calcium Total Bilirubin AST ALT Alkaline Phosphatase Ammonia Troponin T Total Protein Albumin Globulin Albumin/Globulin Ratio Urine Color Urine Appearance Urine pH Ur Specific [place] Urine Protein Urine Glucose (UA) Urine Ketones Urine Occult Blood Urine Nitrate Urine Bilirubin Urine Urobilinogen Ur Leukocyte Esterase Urine RBC Urine WBC Ur Squamous Epith Cells Urine Bacteria Urine Mucus Ur Culture Indicated? Urine Opiates Screen Ur Opiates Confirm Ur Oxycodone Screen Urine Methadone Screen Ur Methadone Confirm Ur Barbiturates Screen Ur Barbiturate Confirm Ur Phencyclidine Scrn Urine PCP Confirm Ur Amphetamines Screen U Amphetamines Confirm U Benzodiazepines Scrn U Benzodiazepine Confm Urine Cocaine Screen Urine Cocaine Confirm U Cannabinoids Confirm U Marijuana (THC) Screen Ethyl Alcohol A/P Narrative A/P Narrative: A: *Encephalopathy: 2/2 hypoglycemia and acute stroke *hypoglycemia: 2/2 insulin in likely poor oral intake *Acute cerebellar stroke (h/o recent cereballar stroke and large in Jun) *Oropharyngeal dysphagia: *Afib: *HTN: *DM: *Poor functional status: * P: -comfort care only -pt and family support Time Spent With Patient Time: Total time spent is greater than 50% in coordination of care (as documented) at patient's floor/unit and/or counseling patient:
[2020-11-27] MEDS ORDERED: LACTOPEROXI/GLUC OXID/POT THIO 1 EACH GEL..EA. TOPICAL PRN (19:30)
[2020-11-27] MEDS ORDERED: morphine 4 MG/ML VIAL NEB PRN (19:30)
[2020-11-27] MEDS ORDERED: ONDANSETRON 4 MG ODT TABLET SL PRN (19:30)
[2020-11-27] MEDS: DOCUSATE SODIUM 100 MG CAPSULE PO SCH (21:05)
[2020-11-27] MEDS: 0.9 % SODIUM CHLORIDE 10 ML SYRINGE IV SCH (21:05)
[2020-11-28] MEDS: LORazepam 2 MG/ML VIAL IV PRN ×4 (04:00→16:29)
[2020-11-28] MEDS: 0.9 % SODIUM CHLORIDE 10 ML SYRINGE IV SCH ×3 (04:01→23:23)
[2020-11-28] MEDS: morphine 4 MG/ML VIAL IV PRN (04:08)
--- NOTE | 2020-11-28 07:05 | Internal Med Progress Note ---
SUBJECTIVE Subjective Patient information: Note initiated : 11/28/20 at 7:03 am Service Date, if different from initiated Date: [] Patient: Robert Caballero 80 y/o M admitted on 11/27/20 for altered loc. Chief Complaint: [] Interval history: History of present illness: Mr. Caballero is a 80 year old M Was recently mated for stroke was found to be unresponsive at the care facility today. He had a blood glucose of 50. In the ED he had blood glucose of 20. He was put on a dextrose drip. He was had dramatic improvement in his mentation with elevation in his blood glucose. 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 Patient has been significantly declining since the stroke and June especially since the most recent one. Patient was also most made comfort care last admission. Patient has been essentially bedbound. Speech is poor and worsened today with the acute stroke. Had a long discussion with the and the daughter and they would like to transition to comfort care at this time. 11/28 Patient sleeping and appears comfortable. No overnight issues. Unable to gather review of systems given incomprehensible verbalizations. Constitutional Vitals: Vital Signs Temp Pulse Resp BP Pulse Ox 98.4 F 72 22 142/73 94 11/28/20 03:48 11/28/20 03:48 11/28/20 03:48 11/28/20 03:48 11/28/20 03:48 Period Temp Pulse Resp BP Sys/[place] Pulse Ox Last 24 Hr 97.4 F-98.8 F 58-82 12-24 105-175/55-163 92-100 Intake and Output 11/27/20 11/28/20 11/28/20 21:59 05:59 13:59 Intake Total 909 150 Output Total 450 300 Balance 459 -150 Weight 107.91 kg Intake & Output: Intake & Output 11/27/20 11/28/20 11/28/20 21:59 05:59 13:59 Intake Total 909 150 Output Total 450 300 Balance 459 -150 Weight 107.91 kg Intake: IV 789 Dextrose 5%-1/2Ns IV Solution 1 597 ,000 ml @ 150 mls/hr IV .Q6H40M [facility] Rx#:[id number] Dextrose 5%-Ns IV Solution 1, 192 000 ml @ 100 mls/hr IV .Q10H [facility] Rx#:[id number] Oral 120 150 Output: Urine Catheter Amount 450 300 Other: Meal Dinner Percent of Meal Consumed 75% Feeding Ability Total Assistance Urine Appearance Clear Urine Color Bright Yellow Bright Yellow Exam: General: sleeping, Awake, No acute Distress Eyes/N/T: Head/Neck: neck supple, CV: RRR, No murmurs, Pulm: Clear b/l, no wheezing/rhonchi/rales Abd: soft, nontender, +BS x4 Ext: no clubbing/cyanosis/edema Neuro: partially arousable to touch, moves all tremors spontaneously does not open his eyes or verbalize Skin: warm/dry OBJ DATA Labs CBC & Chem 7: 11/27/20 11:25 11/27/20 11:25 Labs: Abnormal Lab Results 11/27/20 11/27/20 11/27/20 15:43 11:25 11:25 WBC 11.3 H Absolute Neutrophils 8.63 H Glucose 115 H Albumin 2.8 L Globulin 4.2 H Albumin/Globulin Ratio 0.7 L Urine Protein 100 A Urine Glucose (UA) 50 A Urine Urobilinogen 4.0 A Urine RBC 12 H Urine Mucus Few A Meds: Medications Docusate Sodium (Docusate Sodium 100 Mg Capsule) 100 mg PO BID [facility] Last Admin: 11/27/20 21:05 Dose: 100 mg Documented by: Glucose Oxid/Lactoperoxid/Muramidas (Lactoperoxi/Gluc Oxid/Pot Thio 1 Each Gel..Ea.) 1 each TOPICAL PRN PRN PRN Reason: Dry Mouth Lorazepam (Lorazepam 2 Mg/Ml Vial) 0 mg IV Q1HP PRN; Protocol PRN Reason: ANXIETY/SEDATION Last Admin: 11/28/20 04:29 Dose: 1 mg Documented by: Morphine Sulfate (Morphine 4 Mg/Ml Vial) 2 - 6 mg IV Q1HP PRN; Protocol PRN Reason: Per Pain Protocol Last Admin: 11/28/20 04:08 Dose: 4 mg Documented by: Morphine Sulfate (Morphine 4 Mg/Ml Vial) 4 mg NEB Q4HP PRN PRN Reason: Shortness Of Breath Ondansetron HCl (Ondansetron 4 Mg Odt Tablet) 4 mg SL Q4HP PRN; Protocol PRN Reason: Nausea And Vomiting Sodium Chloride (0.9 % Sodium Chloride 10 Ml Syringe) 10 ml IV Q8 [facility] Last Admin: 11/28/20 04:01 Dose: 10 ml Documented by: A/P Narrative A/P Narrative: A: *Encephalopathy: 2/2 hypoglycemia and acute stroke *hypoglycemia: 2/2 insulin in likely poor oral intake *Acute cerebellar stroke (h/o recent cereballar stroke and large in Dec) *Oropharyngeal dysphagia: *Afib: *HTN: *DM: *Poor functional status: * P: -comfort care only -pt and family support Time Spent With Patient Time: Total time spent is greater than 50% in coordination of care (as documented) at patient's floor/unit and/or counseling patient: QUALITY Stroke Symptom Onset Unknown: No VTE Deep Vein Thrombosis/Pulmonary Embolism Present on Admission: No
[2020-11-28] MEDS: DOCUSATE SODIUM 100 MG CAPSULE PO SCH ×2 (09:58→23:22)
[2020-11-28 16:24] LABS: Amphetamine Screen,Urine None detected; Barbiturate Screen,Urine None detected; Benzodiazepines Screen,Urine None detected; Cannabinoid Screen,Urine None detected; Cocaine Screen,Urine None detected; Opiate Screen,Urine None detected; Oxycodone, Urine Screen None detected; Phencyclidine Screen,Urine None detected
[2020-11-29] MEDS: 0.9 % SODIUM CHLORIDE 10 ML SYRINGE IV SCH ×3 (05:18→22:49)
--- NOTE | 2020-11-29 07:24 | Internal Med Progress Note ---
SUBJECTIVE Subjective Patient information: Note initiated : 11/29/20 at 7:23 am Service Date, if different from initiated Date: [] Patient: Robert Caballero 80 y/o M admitted on 11/27/20 for altered loc. Chief Complaint: [] Interval history: History of present illness: Mr. Caballero is a 80 year old M Was recently mated for stroke was found to be unresponsive at the care facility today. He had a blood glucose of 50. In the ED he had blood glucose of 20. He was put on a dextrose drip. He was had dramatic improvement in his mentation with elevation in his blood glucose. 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 Patient has been significantly declining since the stroke and June especially since the most recent one. Patient was also most made comfort care last admission. Patient has been essentially bedbound. Speech is poor and worsened today with the acute stroke. Had a long discussion with the and the daughter and they would like to transition to comfort care at this time. 11/28 Patient sleeping and appears comfortable. No overnight issues. 11/29 No change. Patient awake. Moves all extremities. Dysarthria. Unable to gather review of systems given incomprehensible verbalizations. Constitutional Vitals: Vital Signs Temp Pulse Resp BP Pulse Ox 98.1 F 52 L 16 154/72 96 11/28/20 19:57 11/28/20 19:57 11/28/20 19:57 11/28/20 19:57 11/28/20 19:57 Period Temp Pulse Resp BP Sys/[place] Pulse Ox Last 24 Hr 97.5 F-98.1 F 52-79 16- 135-154/58-72 95-96 Intake and Output 11/28/20 11/29/20 11/29/20 21:59 05:59 13:59 Intake Total 120 Output Total 400 900 Balance -280 -900 Weight 107.683 kg Intake & Output: Intake & Output 11/28/20 11/29/20 11/29/20 21:59 05:59 13:59 Intake Total 120 Output Total 400 900 Balance -280 -900 Weight 107.683 kg Intake: Oral 120 Output: Urine Catheter Amount 400 900 Other: Meal Dinner Percent of Meal Consumed 100% Feeding Ability Total Assistance Urine Color Straw Stool Size Small Stool Color Brown Stool Consistency Soft Exam: General: Awake, No acute Distress Eyes/N/T: Head/Neck: neck supple, CV: RRR, No murmurs, Pulm: Clear b/l, no wheezing/rhonchi/rales Abd: soft, nontender, +BS x4 Ext: no clubbing/cyanosis/edema Neuro: awake and moves all extremities, dysarthria. Skin: warm/dry OBJ DATA Labs CBC & Chem 7: 11/27/20 11:25 11/27/20 11:25 Labs: Abnormal Lab Results 11/27/20 11/27/20 11/27/20 15:43 11:25 11:25 WBC 11.3 H Absolute Neutrophils 8.63 H Glucose 115 H Albumin 2.8 L Globulin 4.2 H Albumin/Globulin Ratio 0.7 L Urine Protein 100 A Urine Glucose (UA) 50 A Urine Urobilinogen 4.0 A Urine RBC 12 H Urine Mucus Few A Meds: Medications Docusate Sodium (Docusate Sodium 100 Mg Capsule) 100 mg PO BID [facility] Last Admin: 11/28/20 23:22 Dose: Not Given Documented by: Glucose Oxid/Lactoperoxid/Muramidas (Lactoperoxi/Gluc Oxid/Pot Thio 1 Each Gel..Ea.) 1 each TOPICAL PRN PRN PRN Reason: Dry Mouth Lorazepam (Lorazepam 2 Mg/Ml Vial) 0 mg IV Q1HP PRN; Protocol PRN Reason: ANXIETY/SEDATION Last Admin: 11/28/20 16:29 Dose: 2 mg Documented by: Morphine Sulfate (Morphine 4 Mg/Ml Vial) 2 - 6 mg IV Q1HP PRN; Protocol PRN Reason: Per Pain Protocol Last Admin: 11/28/20 04:08 Dose: 4 mg Documented by: Morphine Sulfate (Morphine 4 Mg/Ml Vial) 4 mg NEB Q4HP PRN PRN Reason: Shortness Of Breath Ondansetron HCl (Ondansetron 4 Mg Odt Tablet) 4 mg SL Q4HP PRN; Protocol PRN Reason: Nausea And Vomiting Sodium Chloride (0.9 % Sodium Chloride 10 Ml Syringe) 10 ml IV Q8 [facility] Last Admin: 11/29/20 05:18 Dose: 10 ml Documented by: A/P Narrative A/P Narrative: A: *Encephalopathy: 2/2 hypoglycemia and acute stroke -improved *hypoglycemia: 2/2 insulin in likely poor oral intake -improved *Acute cerebellar stroke (h/o recent cereballar stroke and large parietal in Dec) *Oropharyngeal dysphagia: *Afib: *HTN: *DM: *Poor functional status: P: -comfort care only -pt and family support -home with Hospice vs back to facility Time Spent With Patient Time: Total time spent is greater than 50% in coordination of care (as documented) at patient's floor/unit and/or counseling patient: QUALITY Stroke Symptom Onset Unknown: No VTE Deep Vein Thrombosis/Pulmonary Embolism Present on Admission: No
[2020-11-29] MEDS: DOCUSATE SODIUM 100 MG CAPSULE PO SCH ×2 (09:30→19:30)
--- NOTE | 2020-11-29 11:05 | Discharge Summary ---
Discharge Provider Provider Patient information: Note initiated : 11/29/20 at 11:04 am Service Date, if different from initiated Date: [] Patient: Robert Caballero 80 y/o M admitted on 11/27/20 for altered loc. Chief Complaint: [] Date of admission: 11/27/20 19:27 Discharge date: 11/30/20 Primary care physician: Kelvin Yu MD Consults: 11/27/20 Consult to Physician [CONS] Stat Comment: Consulting Provider: Jet Hawley Reason For Exam: Physician to Consult Discharge Meds Discharge Medications Home Medications insulin syr/ndl U100 half jose 0.5 mL 31 gauge x /16" #100 each 07/28/19 [Rx Confirmed 11/27/20 Last Taken Unknown] insulin U-500 syringe-needle 1/2 mL 31 gauge x 15/64" #100 each 10/05/19 [History Confirmed 11/27/20 Last Taken Unknown] pen needle, diabetic 33 gauge x /32" #100 each 06/06/20 [Rx Confirmed 11/27/20 Last Taken Unknown] blood-glucose meter #1 ea 10/02/20 [Rx Confirmed 11/27/20 Last Taken Unknown] blood sugar diagnostic #100 ea 10/04/20 [Rx Confirmed 11/27/20 Last Taken Unknown] blood sugar diagnostic #100 ea 10/27/20 [Rx Confirmed 11/27/20 Last Taken Unknown] docusate sodium [DOK] 100 mg PO BID #60 cap 11/29/20 [Rx Last Taken Unknown] hyoscyamine sulfate [Levsin/SL] 0.125 mg SUBLINGUAL QID PRN #20 tab 11/29/20 [Rx Last Taken Unknown] lorazepam 1 mg SUBLINGUAL Q2HP PRN #30 ml 11/29/20 [Rx Last Taken Unknown] morphine 10 mg PO Q1-2HP PRN #100 ml 11/29/20 [Rx Last Taken Unknown] ondansetron HCl [Zofran] 4 mg PO Q8H PRN #10 tab 11/29/20 [Rx Last Taken Unknown] COURSE Hospital Course Hospital course: Interval history: History of present illness: Mr. Caballero is a 80 year old M Was recently mated for stroke was found to be unresponsive at the care facility today. He had a blood glucose of 50. In the ED he had blood glucose of 20. He was put on a dextrose drip. He was had dramatic improvement in his mentation with elevation in his blood glucose. 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 Patient has been significantly declining since the stroke and June especially since the most recent one. Patient was also most made comfort care last admission. Patient has been essentially bedbound. Speech is poor and worsened today with the acute stroke. Had a long discussion with the and the daughter and they would like to transition to comfort care at this time. 11/28 Patient sleeping and appears comfortable. No overnight issues. 11/29 No change. Patient awake. Moves all extremities. Dysarthria. 11/30 Patient sleeping. Mildly arousable. 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 fib hypertension diabetes poor functional status Time Spent with Patient Time attestation: Total time spent providing and/or coordinating discharge services: Time spent: Greater than 30 minutes EXAM Constitutional Vitals: Temp Pulse Resp BP Pulse Ox 97.9 F 72 16 129/80 97 11/29/20 08:00 11/29/20 08:00 11/29/20 08:00 11/29/20 08:00 11/29/20 08:00 Discharge Data Data Completed and Pending Labs on day of discharge: Labs from last 24 hours 11/27/20 15:43 Urine Opiates Screen None detected Ur Opiates Confirm TNP Ur Oxycodone Screen None detected Urine Methadone Screen None detected Ur Methadone Confirm TNP Ur Barbiturates Screen None detected Ur Barbiturate Confirm TNP Ur Phencyclidine Scrn None detected Urine PCP Confirm TNP Ur Amphetamines Screen None detected U Amphetamines Confirm TNP U Benzodiazepines Scrn None detected U Benzodiazepine Confm TNP Urine Cocaine Screen None detected Urine Cocaine Confirm TNP U Cannabinoids Confirm TNP U Marijuana (THC) Screen None detected Discharge Plan Patient/Caregiver Discharge Instructions Activity: increase activity as tolerated Diet: Dysphagia Level 4 Pureed Foods Prescriptions: New docusate sodium [DOK] 100 mg Capsule 100 mg PO BID Qty: 60 RF: 0 lorazepam 2 mg/mL concentrate 1 mg sublingual Q2HP PRN (Reason: anxiety) Qty: 30 RF: 0 morphine 20 mg/5 mL (4 mg/mL) solution 10 mg PO Q1-2HP PRN (Reason: pain) Qty: 100 RF: 0 hyoscyamine sulfate [Levsin/SL] 0.125 mg tablet, sublingual 0.125 mg sublingual QID PRN (Reason: terminal secretions) Qty: 20 RF: 0 ondansetron HCl [Zofran] 4 mg tablet 4 mg PO Q8H PRN (Reason: nausea and vomiting) Qty: 10 RF: 0 Discontinued losartan-hydrochlorothiazide 100-25 mg tablet 1 tab PO QDAY Qty: 90 RF: 1 metoprolol succinate 25 mg tablet extended release 24 hr 25 mg PO .Q HS Qty: 90 RF: 0 Novolog Flexpen U-100 Insulin 100 unit/mL (3 mL) insulin pen See Rx Instructions SUB-Q .COMPLEX MDD 80 Qty: 15 RF: 3 aspirin [Adult Aspirin Regimen] 81 mg tablet,delayed release (DR/EC) 81 mg PO QDAY RF: 0 omega-3 fatty acids [Fish Oil Concentrate] 1,000 mg capsule 1,000 mg PO QDAY RF: 0 tamsulosin [Flomax] 0.4 mg capsule 0.8 mg PO HS RF: 0 Novolin 70-30 FlexPen U-100 100 unit/mL (70-30) insulin pen See Rx Instructions .ROUTE .COMPLEX 30 Days Qty: 3 RF: 6 amlodipine 5 mg tablet 5 mg PO BID RF: 0 atorvastatin 40 mg Tablet 80 mg PO HS Qty: 60 RF: 0 Xarelto 15 mg Tablet 15 mg PO QPMCC Qty: 30 RF: 0 nystatin 100,000 unit/gram Powder 1 applic TOPICAL BID RF: 0 acetaminophen 325 mg Capsule 650 mg PO Q4H PRN (Reason: Pain) RF: 0 No Action (DME) pen needle, diabetic [Easy Comfort Pen [place]] 33 gauge x 5/32" needle See Rx Instructions .ROUTE .MEDSUPPLY Qty: 100 RF: 5 (DME) insulin syr/ndl U100 half jose 0.5 mL 31 gauge x 5/16" syringe See Rx Instructions .ROUTE .MEDSUPPLY Qty: 100 RF: 12 (DME) blood-glucose meter [FreeStyle Lite Meter] Kit See Rx Instructions .ROUTE .MEDSUPPLY Qty: 1 RF: 0 (DME) FreeStyle Lite Strips Strip See Rx Instructions .ROUTE .MEDSUPPLY Qty: 100 RF: 6 (DME) BD Insulin Syringe U-500 1/2 mL 31 gauge x 15/64" syringe See Rx Instructions .ROUTE .MEDSUPPLY Qty: 100 RF: 0 (DME) True Metrix Glucose Test Strip Strip See Rx Instructions .ROUTE .MEDSUPPLY Qty: 100 RF: 11 Follow Up Plan Patient Disposition: Xfer SNF Prognosis: Serious I certify that the patient requires SNF services: Yes Overall status at discharge: patient is not back to baseline Discharge Orders: Discharge Order (Routine); Ordered 11/30/20 Ordered By: Jet BARRIENTOS VTE Deep Vein Thrombosis/Pulmonary Embolism Present on Admission: No
[2020-11-29] MEDS: LORazepam 2 MG/ML VIAL IV PRN ×3 (11:26→22:52)
[2020-11-29] MEDS: morphine 4 MG/ML VIAL IV PRN (14:52)
[2020-11-30] MEDS: 0.9 % SODIUM CHLORIDE 10 ML SYRINGE IV SCH (05:20)
--- NOTE | 2020-11-30 08:01 | Internal Med Progress Note ---
SUBJECTIVE Subjective Patient information: Note initiated : 11/30/20 at 8:00 am Service Date, if different from initiated Date: [] Patient: Robert Caballero 80 y/o M admitted on 11/27/20 for altered loc. Chief Complaint: [] Interval history: History of present illness: Mr. Caballero is a 80 year old M Was recently mated for stroke was found to be unresponsive at the care facility today. He had a blood glucose of 50. In the ED he had blood glucose of 20. He was put on a dextrose drip. He was had dramatic improvement in his mentation with elevation in his blood glucose. 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 Patient has been significantly declining since the stroke and June especially since the most recent one. Patient was also most made comfort care last admission. Patient has been essentially bedbound. Speech is poor and worsened today with the acute stroke. Had a long discussion with the and the daughter and they would like to transition to comfort care at this time. 11/28 Patient sleeping and appears comfortable. No overnight issues. 11/29 No change. Patient awake. Moves all extremities. Dysarthria. 11/30 Patient sleeping. Mildly arousable. Unable to gather review of systems given incomprehensible verbalizations. Constitutional Vitals: Vital Signs Temp Pulse Resp BP Pulse Ox 98.5 F 72 16 170/80 94 11/29/20 19:48 11/29/20 08:00 11/29/20 19:48 11/29/20 19:48 11/29/20 19:48 Period Temp Pulse Resp BP Sys/[place] Pulse Ox Last 24 Hr 98.5 F 16 170/80 94 Intake and Output 11/29/20 11/30/20 11/30/20 21:59 05:59 13:59 Intake Total 120 250 Output Total 850 575 Balance -730 -325 Weight 109.27 kg Intake & Output: Intake & Output 11/29/20 11/30/20 11/30/20 21:59 05:59 13:59 Intake Total 120 250 Output Total 850 575 Balance -730 -325 Weight 109.27 kg Intake: Oral 120 250 Output: Urine Catheter Amount 850 575 Other: Urine Appearance Clear Urine Color Dark Yellow Exam: General: Sleeping, No acute Distress Eyes/N/T: Head/Neck: neck supple, CV: RRR, No murmurs, Pulm: Clear b/l, no wheezing/rhonchi/rales Abd: soft, nontender, +BS x4 Ext: no clubbing/cyanosis/edema Neuro: Mildly arousable to voice, moves all extremities, dysarthria. Skin: warm/dry OBJ DATA Labs CBC & Chem 7: 11/27/20 11:25 11/27/20 11:25 Labs: Abnormal Lab Results 11/27/20 11/27/20 11/27/20 15:43 11:25 11:25 WBC 11.3 H Absolute Neutrophils 8.63 H Glucose 115 H Albumin 2.8 L Globulin 4.2 H Albumin/Globulin Ratio 0.7 L Urine Protein 100 A Urine Glucose (UA) 50 A Urine Urobilinogen 4.0 A Urine RBC 12 H Urine Mucus Few A Meds: Medications Docusate Sodium (Docusate Sodium 100 Mg Capsule) 100 mg PO BID [facility] Last Admin: 11/29/20 19:30 Dose: 100 mg Documented by: Glucose Oxid/Lactoperoxid/Muramidas (Lactoperoxi/Gluc Oxid/Pot Thio 1 Each Gel..Ea.) 1 each TOPICAL PRN PRN PRN Reason: Dry Mouth Lorazepam (Lorazepam 2 Mg/Ml Vial) 0 mg IV Q1HP PRN; Protocol PRN Reason: ANXIETY/SEDATION Last Admin: 11/29/20 22:52 Dose: 2 mg Documented by: Morphine Sulfate (Morphine 4 Mg/Ml Vial) 2 - 6 mg IV Q1HP PRN; Protocol PRN Reason: Per Pain Protocol Last Admin: 11/29/20 14:52 Dose: 4 mg Documented by: Morphine Sulfate (Morphine 4 Mg/Ml Vial) 4 mg NEB Q4HP PRN PRN Reason: Shortness Of Breath Ondansetron HCl (Ondansetron 4 Mg Odt Tablet) 4 mg SL Q4HP PRN; Protocol PRN Reason: Nausea And Vomiting Sodium Chloride (0.9 % Sodium Chloride 10 Ml Syringe) 10 ml IV Q8 [facility] Last Admin: 11/30/20 05:20 Dose: Not Given Documented by: A/P Narrative A/P Narrative: A: *Encephalopathy: 2/2 hypoglycemia and acute stroke -improved *hypoglycemia: 2/2 insulin in likely poor oral intake -improved *Acute cerebellar stroke (h/o recent cereballar stroke and large parietal in Dec) *Oropharyngeal dysphagia: *Afib: *HTN: *DM: *Poor functional status: P: -comfort care only -pt and family support -CM for SNF return Time Spent With Patient Time: Total time spent is greater than 50% in coordination of care (as documented) at patient's floor/unit and/or counseling patient: QUALITY Stroke Symptom Onset Unknown: No VTE Deep Vein Thrombosis/Pulmonary Embolism Present on Admission: No
[2020-11-30] MEDS: LORazepam 2 MG/ML VIAL IV PRN (13:37)
[2020-11-30] MEDS: DOCUSATE SODIUM 100 MG CAPSULE PO SCH (13:43)
== END 2020-11-30 14:35 | DRG 637 ==
LOC: ED 11:00 → MEDSUR 19:25
PROVIDERS: ADMIT Internal Medicine; ATTEND Internal Medicine